=== PATIENT | female | born 1990 | race Caucasian/White ===

== ENCOUNTER 2019-04-29 10:26 | Emergency (ER) | payer OTHER, SELFPAY ==
[2019-04-29] VITALS (8 sets, daily range): BP systolic 116–136; BP diastolic 68–89; PULSE 79–104; RESP 14–16; TEMP 36.7–37.1; O2SAT 98–100
--- NOTE | ~2019-04-29 | CT_ITS ---
EXAMINATION: CT BRAIN W/O DATE: 04/29/2019 11:21 INDICATION: Headache. Near syncope. TECHNIQUE: Computed tomography (CT) of the head was performed without intravenous contrast. The dose- length product was 605.33 mGy-cm. The mA was adjusted according to patient size. Iterative reconstruc tion technique was employed. COMPARISON: No prior studies for comparison. FINDINGS: Normal brain parenchymal volume for age. Normal schneider-white differentiation. No acute intrac ranial hemorrhage, infarction, mass or mass effect. No ventriculomegaly or midline shift. Midline sagittal images demonstrate a normal corpus callosum, c raniovertebral junction and sella turcica. Basilar cisterns are patent. Paranasal sinuses and mastoids are pneumatized. No depressed skull fractures. IMPRESSION: 1. No acute intracranial abnormality. Reviewed, dictated and finalized at location B. 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
--- NOTE | 2019-04-29 10:46 | ECG_ITS ---
Measurements Intervals [place] Rate: 85 P: 19 ME: 142 QRS: -21 QRSD: 94 T: -20 QT: 355 QTc: 424 Interpretive Statements SINUS RHYTHM POSSIBLE LEFT VENTRICULAR HYPERTROPHY NONSPECIFIC ST & T-WAVE ABNORMALITY- ANTEROLAT/INF LEADS BORDERLINE ECG Electronically Signed On 04-29-2019 12:12:55 [employer] by Sedrick Avilez D.O.
--- NOTE | 2019-04-29 11:01 | ED.HA ---
HPI - Headache General Chief Complaint: Syncope Stated Complaint: moya/syncopal episode Time Seen by Provider: 04/29/19 10:57 Source: patient Mode of arrival: ambulatory Limitations: no limitations History of Present Illness HPI Narrative: Pt is a 29 y/o female who presents to the ED with c/o a sudden onset severe, generalized, MOYA that started at work this morning. Pt states that she started feeling funny and her coworkers said he color changed. Pt states that she had a near syncopal episode. 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 She reports a tingling sensation throughout her face. Pt notes that she did not eat breakfast and she normally does not eat breakfast. Pt denies CP, SOB, or dizziness but states that she still feels like she is going to pass out. MD elicited complaint: headache Onset (ago): hour(s) (this morning) Onset description: suddenly Location: generalized Associated symptoms: near syncope and tingling (to face) Related Data Home Medications Medication Instructions Recorded Confirmed levothyroxine [Synthroid] 04/29/19 montelukast mg 04/29/19 norgestimate-ethinyl estradiol tablet 04/29/19 [Estarylla] Allergies Allergy/AdvReac Type Severity Reaction Status Date / Time No Known Allergies Allergy Uncoded 11/28/18 08:32 Review of Systems Review of Systems: All systems reviewed & are unremarkable except as noted in HPI and below Cardiovascular: Cardiovascular: Denies chest pain Respiratory: Respiratory: Denies dyspnea Neurologic: Denies dizziness, Reports syncope (near), Reports headache(s) and Reports tingling (to face) PMFSH Past Medical History Medical History (Updated 04/29/19 @ 12:54 by Anabella Maynard MD) Hypothyroid Surgical History Surgical History (Updated 04/29/19 @ 11:44 by Slime Cisneros) H/O dilation and curettage Social History Social History (Updated 04/29/19 @ 11:45 by Slime Cisneros) Smoking status: Never smoker Alcohol intake: never Substance use: never Comments Pt's PCP is Dr. Quiñonez. Her LNMP was 2 weeks ago. Exam Const: General: cooperative, no acute distress and alert Nutritional Appearance: well nourished Orientation/consciousness: patient oriented x3 Limitations: no limitations HENMT: Mouth: Yes lip normal and Yes moist mucous membranes Eyes: Conjunctivae: conjunctivae normal Pupils: Equal, round and reactive pupils present EOM: EOMs intact bilaterally Resp: Effort & Inspection: normal respiratory effort Auscultation: clear to auscultation bilaterally Cardio: Rate: regular rate Rhythm: regular rhythm GI: GI Palp: Yes Soft to palpation and No Tenderness to palpation present (GI) Auscultation: normal bowel sounds Skin: General skin exam: normal color Neuro: General: patient oriented x3 Cognition (Neuro): normal cognition Speech: normal speech Extrem: General: normal to inspection, full ROM and no clubbing, cyanosis or edema Psych: Mental Status: mental status grossly normal Affect: normal affect Attitude: cooperative Course Course Emergency Course: Headache improved with IV acetaminophen. Patient states she still feels funny . Patient is unable to elaborate further. Vital signs normal. Patient not orthostatic. Patient ambulatory to the bathroom without difficulty. CT scan of the brain unremarkable for any findings of hemorrhage or other abnormality after having presented within an hour of onset of her headache. Patient aside from looking fatigued, is otherwise nontoxic in appearance. Appropriate for further outpatient evaluation. Discussed importance of primary care follow-up and to return to the ED if needed for any worsening symptoms or problems. Consultations Consultation #1: Discussed case with Dr. Quiñonez and reviewed tests. We will follow-up tomorrow and monitor patient's symptoms. Date: 04/29/19 Time: 12:52 Vital Signs Vital sign
[2019-04-29 11:21] LABS: Basophils Absolute Auto 0.1 K/mm3 (0.0-0.1); Basophils Percent Auto 0.5 % (0.2-1.2); Eosinophils Absolute Auto 0.1 K/mm3 (0-0.3); Eosinophils Percent Auto 0.8 % (0-4.4); Hematocrit 40.3 % (37.0-47.0); Hemoglobin 13.1 g/dL (12.0-15.0); Immature Granulocyte Absolute 0.03 K/mm3 (0.00-0.031); Immature Granulocyte Percent A 0.3 % (0-0.5); Lymphocytes Absolute Auto 4.17 K/mm3 (0.9-3.2); Mean Corpuscular HGB Conc 32.5 g/dl (32-36); Mean Corpuscular Hemoglobin 27.5 pg (26-34); Mean Corpuscular Volume 84.5 fl (80-100); Mean Platelet Volume 9.6 fl (7.4-10.4); Monocytes Absolute Auto 0.6 K/mm3 (0.1-0.6); Monocytes Percent Auto 5.9 % (2.6-8.5); Neutrophils Absolute Auto 5.7 K/mm3 (1.3-6.7); Neutrophils Percent Auto 53.5 % (45.5-73.1); Platelet Count Result 344 k/mm3 (150-375); Red Blood Count 4.77 M/mm3 (4.2-5.4); Red Cell Distribution Width 13.7 % (11.5-14.5); White Blood Count 10.7 K/mm3 (4.5-10.0)
[2019-04-29 11:30] LABS: INR 0.9; Prothrombin Time 12.2 Seconds (11.1-14.7)
[2019-04-29 11:31] LABS: Partial Thromboplastin Time 27.5 SECONDS (22.3-36.8)
[2019-04-29 11:33] LABS: Alanine Aminotransferase 21 U/L (4-35); Albumin Level 4.3 g/dL (3.5-5.1); Alkaline Phosphatase 81 U/L (38-126); Aspartate Amino Transferase 18 U/L (14-36); Bilirubin,Total 0.8 mg/dL (0.2-1.3); Blood Urea Nitrogen 11 mg/dL (7-17); Carbon Dioxide 26 mmol/L (22-30); Chloride 104 mmol/L (98-107); Estimated CRCL calculation 99 ml/min; Estimated Glomerular Filt Rate > 60; Glucose 88 mg/dL (65-105); Potassium 3.5 mmol/L (3.4-5.0); Sodium 136 mmol/L (137-145)
[2019-04-29 11:39] LABS: Glucose Point of Care 62 (65-105)
[2019-04-29 12:17] LABS: Add Urine Microscopic? YES; Appearance Urine Clear (Clear); Bacteria Urine Trace /hpf; Bilirubin Urine Negative (Negative); Blood Urine 1+ (Negative); Color Urine Straw (Yellow); Glucose Urine UA Negative (Negative); Ketones Urine Negative (Negative); Leukocyte Esterase Ur 1+ LEU/UL (Negative); Mucus Urine Rare /lpf; Nitrate Urine Negative (Negative); Protein Urine Negative (Negative); RBC Urine 0-2 /hpf (0-2); Specific Grav Ur 1.015 (1.001-1.035); Squamous Epithelial Cell Urine Occasional /hpf (Few); Urobilinogen Urine Negative mg/dL (<2.0); WBC Urine 0-3 /hpf
== END 2019-04-29 13:57 | disposition home or self-care (01) ==
PROVIDERS: Emergency Provider Emergency Medicine; PCP Family Medicine
DX: R51 Headache (principal); E03.9 Hypothyroidism, unspecified
CPT/HCPCS: 36415; 70450; 80053; 81001; 81025; 85025; 85610; 85730; 87804; 93005; 96365; 99284; J0131

== ENCOUNTER 2020-04-29 12:11 | Outpatient (CLI) | payer OTHER, SELFPAY ==
--- NOTE | ~2020-04-29 | XR_ITS ---
EXAMINATION: XR abdomen/kub 1V EXAM DATE: 04/29/2020 13:04 INDICATION: Left lower back pain for 2 months. Nausea. Blood in urine yesterday. History of kidney in fections. TECHNIQUE: Frontal projection of the upper abdomen, frontal projection lower abdomen/pelvis for inter pretation. There is no prior study for comparison. FINDINGS: There is expected amount of colonic stool and gas. No small bowel dilation, nonobstructiv e bowel gas pattern. There are no suspicious calcifications identified. There is no organomegaly suspected. The bones are unremarkable. Lung bases are unremarkable. IMPRESSION: Unremarkable abdomen x-ray exam. Reviewed, dictated and finalized at location A. 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
== END 2020-04-29 12:12 ==
PROVIDERS: PCP Nurse Practitioner Family; Visit Provider Nurse Practitioner Family
DX: R31.9 Hematuria, unspecified (principal); M54.5 Low back pain
CPT/HCPCS: 74018

== ENCOUNTER 2020-06-25 19:37 | Emergency (ER) | payer OTHER, SELFPAY ==
[2020-06-25 19:47] VITALS: BP 137/86; PULSE 107; RESP 18; TEMP 37.4; O2SAT 100
--- NOTE | 2020-06-25 19:49 | ED.GENADULT ---
HPI - General Adult General Chief complaint: Skin/Abscess/Foreign Body Stated complaint: Insect Bite Time Seen by Provider: 06/25/20 19:49 Source: patient Mode of arrival: ambulatory Limitations: no limitations History of Present Illness HPI narrative: 30-year-old female patient presents to the [facility] with complaints of a wound to the back of the right leg. Patient states she knew she got bit by something yesterday morning but was unsure of exactly what she got bit from. Patient states she has been using ice, antibiotic ointment and cleaning the area. Patient states today she noticed that the redness has been getting worse and states that it is very tender and that her whole leg feels weak . Patient denies fevers, body aches or chills. Patient is 10 weeks at this time. Related Data Home Medications Medication Instructions Recorded Confirmed 06/25/20 Allergies Allergy/AdvReac Type Severity Reaction Status Date / Time No Known Allergies Allergy Uncoded 11/28/18 08:32 Review of Systems Review of Systems: Narrative: CONSTITUTIONAL: Denies fever, chills, or sweats. EYES: Denies visual changes, redness, or discharge. ENT: Denies rhinorrhea, congestion, sore throat, or otalgia. CARDIOVASCULAR: Denies chest pain, palpitations, or edema. RESPIRATORY: Denies cough or dyspnea. GASTROINTESTINAL: Denies abdominal pain, nausea, vomiting, or diarrhea. GENITOURINARY: Denies dysuria or hematuria. SKIN: Denies rash or itching. Positive wound to right lower extremity MUSCULOSKELETAL: Denies back pain, joint pain, or myalgia. NEUROLOGIC: Denies headache, numbness, or weakness. PSYCHIATRIC: Denies anxiety or depression. COUNTS INCLUDE 234 BEDS AT THE [facility] Past Medical History Medical History Hypothyroid Migraine without aura and without status migrainosus, not intractable UTI (urinary tract infection) Surgical History Surgical History H/O dilation and curettage Social History Social History Smoking status: Never smoker Alcohol intake: never Substance use: never Comments At the time of my signature I agree with nursing past medical history, surgical, social, and family history. There is no relevant family history pertinent to the presenting complaint. Exam Narrative: Exam Narrative: GENERAL: Well-appearing, well-nourished, and in no acute distress. HEAD: Normocephalic, atraumatic. EYES: PERRLA and EOMI. ENT: Nares clear, no rhinorrhea or epistaxis. Mucous membranes moist. NECK: Supple. No lymphadenopathy CHEST: Clear to auscultation. No respiratory distress. HEART: Regular rate and rhythm. No murmur heard. Normal peripheral pulses. ABDOMEN: Soft, nontender, nondistended, normal active bowel sounds. EXTREMITIES: Normal range of motion. No edema. SKIN: Warm, dry, no rash. Patient has approximately 4 cm reddened area to the right lower extremity behind the right knee. The area is warm to the touch there is a small raised pimple area to the middle with no active drainage. It is tender to the touch on palpation. NEURO: No focal deficits. Alert and oriented x3. Course Vital Signs Vital signs: Vital Signs Temperature 37.4 C 06/25/20 19:47 Pulse Rate 107 H 06/25/20 19:47 Respiratory Rate 18 06/25/20 19:47 Blood Pressure 137/86 06/25/20 19:47 Pulse Oximetry 100 06/25/20 19:47 Temperature 37.4 C 06/25/20 19:47 Pulse Rate 107 H 06/25/20 19:47 Respiratory Rate 18 06/25/20 19:47 Blood Pressure 137/86 06/25/20 19:47 Pulse Oximetry 100 06/25/20 19:47 Vital signs reviewed The patient has been informed that they may have pre-hypertension or Hypertension based on a BP reading in the department. I recommend that the patient call the primary care provider listed on their discharge instructions or a physician of their choice this week
== END 2020-06-25 20:00 | disposition home or self-care (01) ==
PROVIDERS: Emergency Provider Nurse Practitioner Family; PCP Family Medicine
DX: O99.711 Diseases of the skin and subcutaneous tissue complicating pregnancy, first trimester (principal); Z3A.10 10 weeks gestation of pregnancy; L03.115 Cellulitis of right lower limb; O99.281 Endocrine, nutritional and metabolic diseases complicating pregnancy, first trimester; E03.9 Hypothyroidism, unspecified
CPT/HCPCS: 99213; G0463

== ENCOUNTER 2020-09-15 16:09 | Observation (INO) | payer OTHER, SELFPAY ==
[2020-09-15 16:32] VITALS: BP 127/79; PULSE 88
[2020-09-15 17:13] VITALS: BMI 32.3
--- NOTE | 2020-09-15 17:13 | OBADM ---
This patient, Juan Kaur, admitted to the OB room Labor/Delivery/Recovery 103 for observation. Patient/family oriented to hospital policies and general routines including ID bracelet, bed and alarms, visiting hours, pain management, procedures, bathroom and other care routines, personal items, smoking policy, room service/diet, and visiting hours. Patient/Family are encouraged to report perceived risks to care and to ask questions if they do not understand what they are told or what they should do.
[2020-09-15 17:17] LABS: Add Urine Microscopic? YES; Appearance Urine Clear (Clear); Bacteria Urine Trace /hpf; Bilirubin Urine Negative (Negative); Blood Urine Negative (Negative); Color Urine Straw (Yellow); Glucose Urine UA Negative (Negative); Ketones Urine Negative (Negative); Leukocyte Esterase Ur Trace LEU/UL (Negative); Nitrate Urine Negative (Negative); Protein Urine Negative (Negative); RBC Urine 0-2 /hpf (0-2); Specific Grav Ur 1.005 (1.001-1.035); Squamous Epithelial Cell Urine Occasional /hpf (Few); Urobilinogen Urine Negative mg/dL (<2.0); WBC Urine 0-3 /hpf
--- NOTE | 2020-09-15 17:58 | PC.NURSE ---
1750- called, informed pt came in for contractions/cramping, none palpated or picked up on monitor. UA results read, orders received to discharge home
--- NOTE | 2020-10-15 10:25 | PM.OBTRLD ---
OB - Triage/Final Diagnosis Visit Information Comments/Additional reasons for admission: I have assessed the risk for this patient, Juan Kaur, and determined that she would benefit from observation care. Evaluation Laboratory results: Laboratory Tests 09/15/20 17:06 Urine Color Straw Urine Appearance Clear Urine pH 7.0 Ur Specific [place] 1.005 Urine Protein Negative Urine Glucose (UA) Negative Urine Ketones Negative Ur Blood (Man) Negative Urine Nitrate Negative Urine Bilirubin Negative Urine Urobilinogen Negative Leukocyte Esterase Rfl Trace H Urine RBC 0-2 Urine WBC 0-3 Ur Squamous Epith Cells Occasional Urine Bacteria Trace Final Diagnosis (1) False labor: Code(s): O47.9 - False labor, unspecified Status: Acute
== END 2020-09-15 17:59 | disposition home or self-care (01) ==
PROVIDERS: Admitting Provider Obstetrics & Gynecology; PCP Family Medicine; Visit Provider Obstetrics & Gynecology
DX: O47.02 False labor before 37 completed weeks of gestation, second trimester (principal); Z3A.21 21 weeks gestation of pregnancy
CPT/HCPCS: 81001; G0378; G0379

== ENCOUNTER 2020-11-22 13:15 | Observation (INO) | payer OTHER, SELFPAY ==
--- NOTE | 2020-11-22 13:15 | OBADM ---
This patient, Juan Kaur, admitted to the OB room OB Post 117 for observation. Patient/family oriented to hospital policies and general routines including ID bracelet, bed and alarms, visiting hours, pain management, procedures, bathroom and other care routines, personal items, smoking policy, room service/diet, and visiting hours. Patient/Family are encouraged to report perceived risks to care and to ask questions if they do not understand what they are told or what they should do.
--- NOTE | 2020-11-22 13:31 | PC.NURSE ---
Updated Bia Morris CNM of patient arrival to OB unit with complaint of contractions over 2 hours, starting around 1130. Patient reports history of labor with previous 2 pregnancies. Order for FFN, SVE and UA with culture.
[2020-11-22 13:45] VITALS: BP 126/81; PULSE 98
[2020-11-22 13:46] VITALS: BP 115/83; PULSE 100
[2020-11-22 14:00] VITALS: BP 125/79; PULSE 97; TEMP 36.6
[2020-11-22 14:10] LABS: Add Urine Microscopic? YES; Appearance Urine Cloudy (Clear); Bacteria Urine 1+ /hpf; Bilirubin Urine Negative (Negative); Blood Urine Negative (Negative); Color Urine Yellow (Yellow); Glucose Urine UA Negative (Negative); Ketones Urine 2+ mg/dL (Negative); Leukocyte Esterase Ur 3+ LEU/UL (Negative); Mucus Urine Few /lpf; Nitrate Urine Negative (Negative); Protein Urine 1+ mg/dL (Negative); Specific Grav Ur 1.021 (1.001-1.035); Squamous Epithelial Cell Urine Many /hpf (Few); Urobilinogen Urine Negative mg/dL (<2.0); WBC Urine 21-30 /hpf
[2020-11-22 14:15] VITALS: BP 119/77; PULSE 93
--- NOTE | 2020-11-22 14:27 | PC.NURSE ---
Notified Bia Morris CNM of result of UA. Orders received.
[2020-11-22 14:30] VITALS: BP 126/78; PULSE 90
[2020-11-22 14:42] VITALS: BMI 33.0
[2020-11-22] MEDS: LACTATED RINGERS 1,000 ML 999 ML IV CONT (14:42)
[2020-11-22 14:48] LABS: Fetal Fibronectin Negative
[2020-11-22] MEDS: NIFEdipine 30 MG TAB.ER.24 PO (15:16)
[2020-11-22] MEDS: TERBUTALINE SULFATE 1 MG/ML VIAL 0.25 MG SUB-Q (15:53)
--- NOTE | 2020-11-22 17:03 | PC.NURSE ---
Updated Bia Morirs CNM. Patient report not feeling contractions and only feels cramping when needing to use restroom. No contractions noted via toco monitoring. Abdomen palpates soft. Discharge orders received.
--- NOTE | 2020-11-22 17:20 | PC.NURSE ---
Discharge orders reviewed with patient. labor precautions reviewed. Patient states understanding. Patient instructed to picker/puller prescription at pharmacy, patient states understanding. Patient instructed to follow-up as scheduled with Bai Morris CNM on Saturday.
--- NOTE | 2020-11-23 18:20 | P.PNOB_ITS ---
OB - Triage/Final Diagnosis Visit Information Date of evaluation: 11/22/20 Reason for evaluation: threatened labor Comments/Additional reasons for admission: I have assessed the risk for this patient, Juan Kaur, and determined that she would benefit from observation care. Evaluation Laboratory results: Laboratory Tests 11/22/20 11/22/20 13:43 13:43 Urine Color Yellow Urine Appearance Cloudy H Urine pH 6.0 Ur Specific [place] 1.021 Urine Protein 1+ H Urine Glucose (UA) Negative Urine Ketones 2+ H Ur Blood (Man) Negative Urine Nitrate Negative Urine Bilirubin Negative Urine Urobilinogen Negative Leukocyte Esterase Rfl 3+ H Urine RBC 6-10 H Urine WBC 21-30 H Ur Squamous Epith Cells Many H Urine Bacteria 1+ H Urine Mucus Few H Fibronectin Negative
== END 2020-11-22 17:20 | disposition home or self-care (01) ==
PROVIDERS: Advanced Practice Midwife; Admitting Provider Obstetrics & Gynecology; PCP Family Medicine; Visit Provider Obstetrics & Gynecology
DX: O47.03 False labor before 37 completed weeks of gestation, third trimester (principal); Z3A.31 31 weeks gestation of pregnancy
CPT/HCPCS: 81001; 82731; 87086; 96360; 96372; A9270; G0378; G0379; J3105; J7120

== ENCOUNTER 2020-12-06 16:24 | Outpatient (RCR) | payer OTHER, SELFPAY ==
[2020-12-06 17:35] VITALS: BP 115/76; PULSE 84
== END 2021-03-06 23:59 | disposition home or self-care (01) ==
LOC: ANHOBOP 16:24
PROVIDERS: PCP Family Medicine; Visit Provider Obstetrics & Gynecology
DX: O26.893 Other specified pregnancy related conditions, third trimester (principal); Z3A.33 33 weeks gestation of pregnancy
CPT/HCPCS: 59025

== ENCOUNTER 2020-12-14 19:43 | Observation (INO) | payer OTHER, SELFPAY ==
[2020-12-14] VITALS (59 sets, daily range): BP systolic 108–128; BP diastolic 60–82; PULSE 76–118; O2SAT 95–99; BMI 32.5
--- NOTE | 2020-12-14 16:00 | OBADM ---
This patient, Juan Kaur, admitted to the OB room 117 at 1524 for observation for tachycardia, headache, and dizziness. Patient/family oriented to hospital policies and general routines including ID bracelet, bed and alarms, visiting hours, pain management, procedures, bathroom and other care routines, personal items, smoking policy, room service/diet, and visiting hours. Patient/Family are encouraged to report perceived risks to care and to ask questions if they do not understand what they are told or what they should do.
[2020-12-14 16:16] LABS: Basophils Percent Auto 0.4 % (0.2-1.2); Eosinophils Absolute Auto 0.1 K/mm3 (0-0.3); Eosinophils Percent Auto 0.6 % (0-4.4); Hematocrit 31.7 % (37.0-47.0); Hemoglobin 10.3 g/dL (12.0-15.0); Immature Granulocyte Absolute 0.07 K/mm3 (0.00-0.031); Immature Granulocyte Percent A 0.6 % (0-0.5); Lymphocytes Absolute Auto 2.08 K/mm3 (0.9-3.2); Lymphocytes Percent Auto 18.4 % (18.3-44.2); Mean Corpuscular HGB Conc 32.5 g/dl (32-36); Mean Corpuscular Hemoglobin 26.8 pg (26-34); Mean Corpuscular Volume 82.3 fl (80-100); Mean Platelet Volume 10.5 fl (7.4-10.4); Monocytes Absolute Auto 0.8 K/mm3 (0.1-0.6); Monocytes Percent Auto 7.3 % (2.6-8.5); Neutrophils Absolute Auto 8.2 K/mm3 (1.3-6.7); Neutrophils Percent Auto 72.7 % (45.5-73.1); Platelet Count Result 234 k/mm3 (150-375); Red Blood Count 3.85 M/mm3 (4.2-5.4); Red Cell Distribution Width 14.2 % (11.5-14.5); White Blood Count 11.3 K/mm3 (4.5-10.0)
[2020-12-14 16:25] LABS: Add Urine Microscopic? YES; Appearance Urine Cloudy (Clear); Bacteria Urine Trace /hpf; Bilirubin Urine 1+ (Negative); Blood Urine Negative (Negative); Color Urine Amber (Yellow); Glucose Urine UA Negative (Negative); Ketones Urine Trace mg/dL (Negative); Leukocyte Esterase Ur 3+ LEU/UL (Negative); Mucus Urine Heavy /lpf; Nitrate Urine Negative (Negative); Protein Urine 2+ mg/dL (Negative); Squamous Epithelial Cell Urine Few /hpf (Few); WBC Urine 51-75 /hpf
[2020-12-14 16:27] LABS: Specific Grav Ur 1.034 (1.001-1.035)
[2020-12-14 16:31] LABS: Alanine Aminotransferase 10 U/L (4-35); Albumin Level 3.5 g/dL (3.5-5.1); Alkaline Phosphatase 145 U/L (38-126); Anion Gap 7 mmol/L (8-16); Aspartate Amino Transferase 15 U/L (14-36); Bilirubin,Total 0.6 mg/dL (0.2-1.3); Blood Urea Nitrogen 4 mg/dL (7-17); Calcium 8.9 mg/dL (8.4-10.2); Carbon Dioxide 21 mmol/L (22-30); Chloride 106 mmol/L (98-107); Estimated Glomerular Filt Rate > 60; Glucose 120 mg/dL (65-110); Potassium 3.7 mmol/L (3.4-5.0); Sodium 134 mmol/L (137-145)
[2020-12-14] MEDS: NITROFURANTOIN MONOHYD MACROCR 100 MG CAP PO (18:25)
--- NOTE | 2020-12-14 19:14 | PM.IMHP ---
H&P: HPI History of Present Illness Date/Time: 12/14/20 19:14 pt admitted for observation for complaints of nausea, dizziness and tachycardia while at work, per pt HR up to 200 while sitting, became very pale and then headache started and dizziness. Pt also c/o contractions that were worsening during the day but are less frequent and crampy now. also c/o fatigue Chief Complaint: nausea, dizziness, tachycardia Review of Systems Review of Systems: All systems reviewed & are unremarkable except as noted in HPI and below PMFSH Past Medical History Medical History (Updated 10/15/20 @ 10:25 by Ashli Montez MD) Hypothyroid Migraine without aura and without status migrainosus, not intractable UTI (urinary tract infection) Venomous spider bite (06/23/20) right posterior thigh with cellulitis Surgical History Surgical History H/O dilation and curettage Social History Social History Smoking status: Never smoker Alcohol intake: never Substance use: never Meds Home Medications and Allergies Home Medications Medication Instructions Recorded Confirmed Type levothyroxine 137 mcg capsule 137 mcg PO DAILY 11/07/20 12/14/20 History PNV cmb#95-ferrous fumarate-FA 1 tablet PO HS 12/14/20 12/14/20 History [] ursodiol 300 mg PO TIDWMEAL 12/14/20 12/14/20 History Allergies Allergy/AdvReac Type Severity Reaction Status Date / Time No Known Allergies Allergy Verified 12/14/20 15:50 Vital Signs Vital Signs - 24 hr 12/14/20 15:43 12/14/20 15:48 12/14/20 15:49 Pulse Rate Blood Pressure Pulse Oximetry 99 98 98 12/14/20 15:51 12/14/20 15:53 12/14/20 15:58 Pulse Rate 97 Blood Pressure 128/79 Pulse Oximetry 98 97 12/14/20 16:03 12/14/20 16:05 12/14/20 16:08 Pulse Rate 100 Blood Pressure 126/75 Pulse Oximetry 97 99 12/14/20 16:13 12/14/20 16:15 12/14/20 16:18 Pulse Rate 89 Blood Pressure 120/79 Pulse Oximetry 98 97 12/14/20 16:23 12/14/20 16:28 12/14/20 16:30 Pulse Rate 85 Blood Pressure 120/80 Pulse Oximetry 97 97 12/14/20 16:33 12/14/20 16:38 12/14/20 16:43 Pulse Rate Blood Pressure Pulse Oximetry 97 98 98 12/14/20 16:45 12/14/20 16:48 12/14/20 16:53 Pulse Rate 94 Blood Pressure 119/72 Pulse Oximetry 97 98 12/14/20 16:58 12/14/20 17:00 12/14/20 17:03 Pulse Rate 83 Blood Pressure 126/80 Pulse Oximetry 98 98 12/14/20 17:08 12/14/20 17:13 12/14/20 17:18 Pulse Rate Blood Pressure Pulse Oximetry 97 97 99 12/14/20 17:23 12/14/20 17:28 12/14/20 17:30 Pulse Rate 90 Blood Pressure 118/65 Pulse Oximetry 98 98 12/14/20 17:33 12/14/20 17:38 12/14/20 17:43 Pulse Rate Blood Pressure Pulse Oximetry 99 98 97 12/14/20 17:45 12/14/20 17:48 12/14/20 17:53 Pulse Rate 91 Blood Pressure 123/78 Pulse Oximetry 98 97 12/14/20 17:58 12/14/20 18:00 12/14/20 18:03 Pulse Rate 80 Blood Pressure 123/70 Pulse Oximetry 97 97 12/14/20 18:08 12/14/20 18:13 12/14/20 18:15 Pulse Rate 82 Blood Pressure 125/74 Pulse Oximetry 97 97 12/14/20 18:17 12/14/20 18:22 12/14/20 18:27 Pulse Rate Blood Pressure Pulse Oximetry 97 97 97 12/14/20 18:30 12/14/20 18:32 12/14/20 18:37 Pulse Rate 91 Blood Pressure 127/82 Pulse Oximetry 97 98 12/14/20 18:42 12/14/20 18:46 12/14/20 18:47 Pulse Rate 79 Blood Pressure 108/60 Pulse Oximetry 98 98 12/14/20 18:51 12/14/20 18:56 12/14/20 19:00 Pulse Rate 84 Blood Pressure 121/73 Pulse Oximetry 98 97 12/14/20 19:01 12/14/20 19:06 12/14/20 19:11 Pulse Rate Blood Pressure Pulse Oximetry 96 95 96 Exam Const: General: cooperative Limitations: no limitations Psych: Attitude: cooperative Thought process: Normal thought process present Thought content: Yes Normal thought con
[2020-12-15 17:41] LABS: SARS-CoV-2 RNA PCR Negative
== END 2020-12-14 20:00 | disposition home or self-care (01) ==
LOC: ANHOBOP 19:43 → ANHOBPP 19:43
PROVIDERS: Advanced Practice Midwife; Admitting Provider Obstetrics & Gynecology; PCP Family Medicine; Visit Provider Obstetrics & Gynecology
DX: O26.893 Other specified pregnancy related conditions, third trimester (principal); R42 Dizziness and giddiness; R51.9 Headache, unspecified; Z3A.34 34 weeks gestation of pregnancy
CPT/HCPCS: 36415; 80053; 81001; 85025; 87086; 87088; A9270; C9803; G0378; G0379; U0003; U0005

== ENCOUNTER 2021-01-11 06:07 | Inpatient (IN) | payer OTHER, SELFPAY ==
[2021-01-11] VITALS (90 sets, daily range): BP systolic 92–144; BP diastolic 47–109; PULSE 61–155; RESP 18–20; TEMP 36.3–37.1; O2SAT 97–100; BMI 32.6
--- OUTSIDE RECORDS SUMMARY | 2021-01-11 06:11 | XMS_ITS ---
:1990 Author Care Team Providers Name Role Phone ROZINA GAXIOLA MD Primary Care Provider [phone] Allergies Code Code System Name Reaction Severity Status Onset NKDA ? Medications Name Status Start Date Stop Date ? ? amoxicillin 875 mg-potassium clavulanate 125 mg tablet Completed ? 07/08/2020 TAKE 1 TABLET BY MOUTH EVERY 12 HOURS FOR 5 DAYS aspirin 81 mg chewable tablet Active ? No t available xxqbmlicuh-kdpdvkjnpfiig-vvgbuiai 50 mg-325 mg-40 mg tablet Comp leted ? 06/17/2020 TAKE 1 TABLET BY MOUTH EVERY 4 TO 6 HOURS NEEDED FOR PAIN ciprofloxacin 500 mg tablet Completed ? 05/27 TAKE 1 TABLET BY MOUTH EVERY 12 HOURS Compazine 10 mg tablet Completed 2016 7 take 1 tablet by oral route 3 times every day doxycycline hyclate 100 mg capsule Completed 01/29/2018 10/10/2018 take 1 capsule by oral route 2 times every day levothyroxine 125 mcg tablet Completed ? TAKE 1 TABLET BY MOUTH DAILY levothyroxine 137 mcg tablet Active ? Not available Lexapro 5 mg tablet Completed 04/08/2015 01/26/2016 take 1 tablet by oral route every day nifedipine ER 30 mg Completed ? 12/23/2020 tablet,extended release 24 hr nitrofurantoin Completed ? 12/23/2020 monohydrate/macrocrystals 100 mg capsule prednisone 20 mg tablet Completed ? 10/29/19 21 TAKE 1 TABLET BY MOUTH DAILY Active ? Not available Seasonique 0.15 mg-30 mcg (84)/10 mcg(7) tablets,3 month dos e pack Comp
--- OUTSIDE RECORDS SUMMARY | 2021-01-11 06:11 | XMS_ITS | Encounter Summary ---
:1990 Author Care Team Providers Name Role Phone Paul Quiñonez MD Primary Care Provider [phone] Reason for Visit None recorded. Assessment and Plan 1. Cholestasis of ? non-stress test Discussion Note: None recorded.Patient educational handouts: No information available. Plan of Care Reminders Provider Appointments None ? ? recorded. Lab None ? ? recorded. Referral None ? ? recorded. Procedures None ? ? recorded. Surgeries None ? ? recorded. Imaging 01/10/2021 [place] Non-stress Test Medications Name Start Date ? ? aspirin 81 mg chewable tablet ? levothyroxine 137 mcg tablet ? Take 1 tablet every day by oral route. ? ursodiol 300 mg capsule ? TAKE 1 CAPSULE BY MOUTH TWICE DAILY Medications Administered None recorded. Vitals None recorded. Results Lab Results None recorded. Allergies Code Code System Name Reaction Severity Onset NKDA ? ? ? Problems Name Status Onset Date Source ? Active 07/08/2020 ? Proced
--- OUTSIDE RECORDS SUMMARY | 2021-01-11 06:12 | XMS_ITS | Encounter Summary ---
:1990 Author Care Team Providers Name Role Phone Paul Quiñonez MD Primary Care Provider [phone] Reason for Visit None recorded. Assessment and Plan 1. Cholestasis of ? non-stress test Discussion Note: None recorded.Patient educational handouts: No information available. Plan of Care Reminders Provider Appointments None ? ? recorded. Lab None ? ? recorded. Referral None ? ? recorded. Procedures None ? ? recorded. Surgeries None ? ? recorded. Imaging 01/06/2021 [place] Non-stress Test Medications Name Start Date ? [...]
--- OUTSIDE RECORDS SUMMARY | 2021-01-11 06:12 | XMS_ITS | Encounter Summary ---
:1990 Author Care Team Providers Name Role Phone Paul Quiñonez MD Primary Care Provider [phone] Reason for Visit OB visit OB [id number] EDC 03/23/2020 LMP 04/16/2020 Assessment and Plan Assessment Note Patient is _36__weeks . Dis cussed plan. 1. Routine care Discussion Note: None recorded.Patient educational handouts: No information available. Plan of Care Reminders Provider Appointments None ? ? recorded. Lab None ? ? recorded. Referral None ? ? recorded. Procedures None ? ? recorded. Surgeries None ? ? recorded. Imaging None ? ? recorded. Medications Name Start Date ? ? aspirin 81 mg chewable tablet ? levothyroxine 137 mcg tablet ? Take 1 tablet every day by oral route. ? ursodiol 300 mg capsule ? TAKE 1 CAPSULE BY MOUTH TWICE DAILY Medications Administered None recorded. Vitals Height Weight BMI Blood Pressure 5 ft 6 in 203 lbs 32.8 kg/m2 133/85 mm[Hg] Results Lab Results None recorded. Allergies Code Code System Name Reaction Severity Onset NKDA ? ? ?
--- OUTSIDE RECORDS SUMMARY | 2021-01-11 06:12 | XMS_ITS | Encounter Summary ---
:1990 Author Care Team Providers Name Role Phone Paul Quiñonez MD Primary Care Provider [phone] Reason for Visit None recorded. Assessment and Plan 1. Cholestasis of ? non-stress test Discussion Note: None recorded.Patient educational handouts: No information available. Plan of Care Reminders Provider Appointments None ? ? recorded. Lab None ? ? recorded. Referral None ? ? recorded. Procedures None ? ? recorded. Surgeries None ? ? recorded. Imaging 01/03/2021 [place] Non-stress Test Medications Name Start Date ? ? aspirin 81 mg chewable tablet ? levothyroxine 137 mcg tablet ? Take 1 tablet every day by oral route. ? ursodiol 300 mg capsule ? TAKE 1 CAPSULE BY MOUTH TWICE DAILY Medications Administered None recorded. Vitals Blood Pressure 123/82 mm[Hg] Results Lab Results None recorded. Allergies Code Code System Name Reaction Severity Onset NKDA ? ? ? Problems Name Status Onset Date Source ?
--- OUTSIDE RECORDS SUMMARY | 2021-01-11 06:12 | XMS_ITS | Encounter Summary ---
:1990 Author Care Team Providers Name Role Phone Paul Quiñonez MD Primary Care Provider [phone] Reason for Visit None recorded. Assessment and Plan 1. Cholestasis of ? non-stress test Discussion Note: None recorded.Patient educational handouts: No information available. Plan of Care Reminders Provider Appointments None ? ? recorded. Lab None ? ? recorded. Referral None ? ? recorded. Procedures None ? ? recorded. Surgeries None ? ? recorded. Imaging 12/20/2020 [place] Non-stress Test Medications Name Start Date ? ? aspirin 81 mg chewable tablet ? levothyroxine 137 mcg tablet ? Take 1 tablet every day by oral route. ? ursodiol 300 mg capsule ? TAKE 1 CAPSULE BY MOUTH TWICE DAILY Medications Administered None recorded. Vitals Blood Pressure 129/77 mm[Hg] Results Lab Results None recorded. Allergies Code Code System Name Reaction Severity Onset NKDA ? ? ? Problems Name Status Onset Date Source ?
--- OUTSIDE RECORDS SUMMARY | 2021-01-11 06:12 | XMS_ITS | Encounter Summary ---
:1990 Author Care Team Providers Name Role Phone Paul Quiñonez MD Primary Care Provider [phone] Reason for Visit None recorded. Assessment and Plan 1. Cholestasis of ? non-stress test Discussion Note: None recorded.Patient educational handouts: No information available. Plan of Care Reminders Provider Appointments None ? ? recorded. Lab None ? ? recorded. Referral None ? ? recorded. Procedures None ? ? recorded. Surgeries None ? ? recorded. Imaging 12/16/2020 [place] Non-stress Test Medications Name Start Date ? [...]
--- OUTSIDE RECORDS SUMMARY | 2021-01-11 06:12 | XMS_ITS | Encounter Summary ---
:1990 Author Care Team Providers Name Role Phone Paul Quiñonez MD Primary Care Provider [phone] Reason for Visit OB visit 37w6d Assessment and Plan Assessment Note Patient is ___weeks . Discu ssed plan. Discussion Note: None recorded.Patient educational handouts: No [...] Onset Date Source ? Active 07/08/2020 ? Procedures
--- OUTSIDE RECORDS SUMMARY | 2021-01-11 06:12 | XMS_ITS | Encounter Summary ---
:1990 Author Care Team Providers Name Role Phone Paul Quiñonez MD Primary Care Provider [phone] Reason for Visit OB visit OB [id number] EDC 01/21/2021 LMP 04/16/2020 Assessment and Plan Assessment Note Patient is 33 ___weeks . Di scussed plan. 1. Routine care Discussion Note: None [...] BMI Blood Pressure 5 ft 6 in 202 lbs 32.6 kg/m2 126/83 mm[Hg] Results Lab Results None recorded. Allergies Code Code System Name Reaction Severity Onset NKDA ? ? ?
--- OUTSIDE RECORDS SUMMARY | 2021-01-11 06:12 | XMS_ITS | Encounter Summary ---
:1990 Author Care Team Providers Name Role Phone Paul Quiñonez MD Primary Care Provider [phone] Reason for Visit None recorded. Assessment and Plan 1. Cholestasis of ? non-stress test Discussion Note: None recorded.Patient educational handouts: No information available. Plan of Care Reminders Provider Appointments None ? ? recorded. Lab None ? ? recorded. Referral None ? ? recorded. Procedures None ? ? recorded. Surgeries None ? ? recorded. Imaging 12/30/2020 [place] Non-stress Test Medications Name Start Date ? [...]
--- OUTSIDE RECORDS SUMMARY | 2021-01-11 06:12 | XMS_ITS | Encounter Summary ---
:1990 Author Care Team Providers Name Role Phone Paul Quiñonez MD Primary Care Provider [phone] Reason for Visit None recorded. Assessment and Plan 1. Cholestasis of ? non-stress test Discussion Note: None recorded.Patient educational handouts: No information available. Plan of Care Reminders Provider Appointments None ? ? recorded. Lab None ? ? recorded. Referral None ? ? recorded. Procedures None ? ? recorded. Surgeries None ? ? recorded. Imaging 12/23/2020 [place] Non-stress Test Medications Name Start Date ? [...]
--- OUTSIDE RECORDS SUMMARY | 2021-01-11 06:12 | XMS_ITS | Encounter Summary ---
:1990 Author Care Team Providers Name Role Phone Paul Quiñonez MD Primary Care Provider [phone] Reason for Visit OB visit 38w3d Assessment and Plan 1. Routine care Discussion Note: None recorded.Patient [...] Medications Administered None recorded. Vitals Height Weight Blood Pressure 5 ft 6 in 201 lbs 126/81 mm[Hg] Results Lab Results None recorded. Allergies Code Code System Name Reaction Severity Onset NKDA ? ? ? Problems Name Status Onset Date Source ? Activ
--- OUTSIDE RECORDS SUMMARY | 2021-01-11 06:12 | XMS_ITS | Encounter Summary ---
:1990 Author Care Team Providers Name Role Phone Paul Quiñonez MD Primary Care Provider [phone] Reason for Visit OB visit 34w6d Assessment and Plan Assessment Note Patient is ___weeks . Discu ssed plan. 1. Routine care Discussion Note: None [...] BMI Blood Pressure 5 ft 6 in 200 lbs 32.3 kg/m2 132/82 mm[Hg] Results Lab Results None recorded. Allergies Code Code System Name Reaction Severity Onset NKDA ? ? ? Problems
--- OUTSIDE RECORDS SUMMARY | 2021-01-11 06:12 | XMS_ITS | Encounter Summary ---
:1990 Author Care Team Providers Name Role Phone Paul Quiñonez MD Primary Care Provider [phone] Reason for Visit None recorded. Assessment and Plan 1. Cholestasis of ? non-stress test Discussion Note: None recorded.Patient educational handouts: No information available. Plan of Care Reminders Provider Appointments None ? ? recorded. Lab None ? ? recorded. Referral None ? ? recorded. Procedures None ? ? recorded. Surgeries None ? ? recorded. Imaging 12/09/2020 [place] Non-stress Test Medications Name Start Date ? [...]
--- OUTSIDE RECORDS SUMMARY | 2021-01-11 06:12 | XMS_ITS | Encounter Summary ---
:1990 Author Care Team Providers Name Role Phone Paul Quiñonez MD Primary Care Provider [phone] Reason for Visit None recorded. Assessment and Plan 1. Cholestasis of ? non-stress test Discussion Note: None recorded.Patient educational handouts: No information available. Plan of Care Reminders Provider Appointments None ? ? recorded. Lab None ? ? recorded. Referral None ? ? recorded. Procedures None ? ? recorded. Surgeries None ? ? recorded. Imaging 12/06/2020 [place] Non-stress Test Medications Name Start Date ? ? aspirin 81 mg chewable tablet ? levothyroxine 137 mcg tablet ? Take 1 tablet every day by oral route. ? ursodiol 300 mg capsule ? TAKE 1 CAPSULE BY MOUTH TWICE DAILY Medications Administered None recorded. Vitals Blood Pressure 131/81 mm[Hg] Results Lab Results None recorded. Allergies Code Code System Name Reaction Severity Onset NKDA ? ? ? Problems Name Status Onset Date Source ?
--- OUTSIDE RECORDS SUMMARY | 2021-01-11 06:12 | XMS_ITS | Encounter Summary ---
:1990 Author Care Team Providers Name Role Phone Paul Quiñonez MD Primary Care Provider [phone] Reason for Visit OB visit OB [id number] EDC 01/21/2021 LMP 04/16/2020 Assessment and Plan Assessment Note Patient is _35__weeks . Dis cussed plan. 1. Routine care [...] ft 6 in 203 lbs 32.8 kg/m2 127/82 mm[Hg] Results Lab Results None recorded. Allergies Code Code System Name Reaction Severity Onset NKDA ? ? ?
--- OUTSIDE RECORDS SUMMARY | 2021-01-11 06:12 | XMS_ITS | Encounter Summary ---
:1990 Author Care Team Providers Name Role Phone Paul Quiñonez MD Primary Care Provider [phone] Reason for Visit None recorded. Assessment and Plan 1. Cholestasis of ? non-stress test Discussion Note: None recorded.Patient educational handouts: No information available. Plan of Care Reminders Provider Appointments None ? ? recorded. Lab None ? ? recorded. Referral None ? ? recorded. Procedures None ? ? recorded. Surgeries None ? ? recorded. Imaging 12/27/2020 [place] Non-stress Test Medications Name Start Date ? ? aspirin 81 mg chewable tablet ? levothyroxine 137 mcg tablet ? Take 1 tablet every day by oral route. ? ursodiol 300 mg capsule ? TAKE 1 CAPSULE BY MOUTH TWICE DAILY Medications Administered None recorded. Vitals Weight Blood Pressure 203 lbs 138/85 mm[Hg] Results Lab Results None recorded. Allergies Code Code System Name Reaction Severity Onset NKDA ? ? ? Problems Name Status Onset Date Source ?
--- OUTSIDE RECORDS SUMMARY | 2021-01-11 06:12 | XMS_ITS | Encounter Summary ---
:1990 Author Care Team Providers Name Role Phone Paul Quiñonez MD Primary Care Provider [phone] Reason for Visit None recorded. Assessment and Plan 1. Cholestasis of ? US, obstetric, follow-up Discussion Note: None recorded.Patient educational handouts: No information available. Plan of Care Reminders Provider Appointments None ? ? recorded. Lab None ? ? recorded. Referral None ? ? recorded. Procedures None ? ? recorded. Surgeries None ? ? recorded. Imaging US, 01/06/2021 [place] [facility], Follow-up Medications Name Start Date ? ? aspirin [...]
--- OUTSIDE RECORDS SUMMARY | 2021-01-11 06:12 | XMS_ITS | Encounter Summary ---
:1990 Author Care Team Providers Name Role Phone Paul Quiñonez MD Primary Care Provider [phone] Reason for Visit None recorded. Assessment and Plan 1. Cholestasis of ? non-stress test Discussion Note: None recorded.Patient educational handouts: No information available. Plan of Care Reminders Provider Appointments None ? ? recorded. Lab None ? ? recorded. Referral None ? ? recorded. Procedures None ? ? recorded. Surgeries None ? ? recorded. Imaging 12/13/2020 [place] Non-stress Test Medications Name Start Date ? ? aspirin 81 mg chewable tablet ? levothyroxine 137 mcg tablet ? Take 1 tablet every day by oral route. ? ursodiol 300 mg capsule ? TAKE 1 CAPSULE BY MOUTH TWICE DAILY Medications Administered None recorded. Vitals Blood Pressure 115/82 mm[Hg] Results Lab Results None recorded. Allergies Code Code System Name Reaction Severity Onset NKDA ? ? ? Problems Name Status Onset Date Source ?
--- OUTSIDE RECORDS SUMMARY | 2021-01-11 06:13 | XMS_ITS | Encounter Summary ---
:1990 Author Care Team Providers Name Role Phone Paul Quiñonez MD Primary Care Provider [phone] Reason for Visit OB visit OB [id number] EDC 01/21/2021 LMP 04/16/2020 Assessment and Plan Assessment Note Patient is _32__weeks . Dis cussed plan. 1. Routine care [...] ft 6 in 203 lbs 32.8 kg/m2 132/84 mm[Hg] Results Lab Results None recorded. Allergies Code Code System Name Reaction Severity Onset NKDA ? ? ?
--- OUTSIDE RECORDS SUMMARY | 2021-01-11 06:13 | XMS_ITS | Encounter Summary ---
:1990 Author Care Team Providers Name Role Phone Paul Quiñonez MD Primary Care Provider [phone] Reason for Visit None recorded. Assessment and Plan 1. Reduced movement ? non-stress test Discussion Note: None recorded.Patient educational handouts: No information available. Plan of Care Reminders Provider Appointments None ? ? recorded. Lab None ? ? recorded. Referral None ? ? recorded. Procedures None ? ? recorded. Surgeries None ? ? recorded. Imaging 11/10/2020 [place] Non-stress Test Medications Name Start Date ? [...] Onset Date Source ? Active 07/08/2020 ? Procedu
--- OUTSIDE RECORDS SUMMARY | 2021-01-11 06:13 | XMS_ITS | Encounter Summary ---
:1990 Author Care Team Providers Name Role Phone Paul Quiñonez MD Primary Care Provider [phone] Reason for Visit None recorded. Assessment and Plan 1. Cholestasis of ? US, obstetric, follow-up Discussion Note: None recorded.Patient educational handouts: No information available. Plan of Care Reminders Provider Appointments None ? ? recorded. Lab None ? ? recorded. Referral None ? ? recorded. Procedures None ? ? recorded. Surgeries None ? ? recorded. Imaging US, 10/28/2020 [place] [facility], Follow-up Medications Name Start Date ? [...]
--- OUTSIDE RECORDS SUMMARY | 2021-01-11 06:13 | XMS_ITS | Encounter Summary ---
:1990 Author Care Team Providers Name Role Phone Paul Quiñonez MD Primary Care Provider [phone] Reason for Visit None recorded. Assessment and Plan 1. Cholestasis of ? US, obstetric, follow-up Discussion Note: None recorded.Patient educational handouts: No information available. Plan of Care Reminders Provider Appointments None ? ? recorded. Lab None ? ? recorded. Referral None ? ? recorded. Procedures None ? ? recorded. Surgeries None ? ? recorded. Imaging US, 11/29/2020 [facility], Follow-up Medications Name Start Date ? [...]
--- OUTSIDE RECORDS SUMMARY | 2021-01-11 06:13 | XMS_ITS | Encounter Summary ---
:1990 Author Care Team Providers Name Role Phone Paul Quiñonez MD Primary Care Provider [phone] Reason for Visit OB visit Assessment and Plan Assessment Note Patient is [...] ? ? Problems Name Status Onset Date Sour
--- OUTSIDE RECORDS SUMMARY | 2021-01-11 06:13 | XMS_ITS | Encounter Summary ---
:1990 Author Care Team Providers Name Role Phone Paul Quiñonez MD Primary Care Provider [phone] Reason for Visit OB visit OB [id number] EDC 01/21/2021 LMP 03/29/2020 Assessment and Plan Assessment Note Patient is _27__weeks . Dis cussed plan. 1. Routine care [...] ft 6 in 202 lbs 32.6 kg/m2 123/80 mm[Hg] Results Lab Results None recorded. Allergies Code Code System Name Reaction Severity Onset NKDA ? ? ?
--- OUTSIDE RECORDS SUMMARY | 2021-01-11 06:13 | XMS_ITS | Encounter Summary ---
:1990 Author Care Team Providers Name Role Phone Paul Quiñonez MD Primary Care Provider [phone] Reason for Visit None recorded. Assessment and Plan 1. Cholestasis of ? non-stress test Discussion Note: None recorded.Patient educational handouts: No information available. Plan of Care Reminders Provider Appointments None ? ? recorded. Lab None ? ? recorded. Referral None ? ? recorded. Procedures None ? ? recorded. Surgeries None ? ? recorded. Imaging 11/29/2020 [place] Non-stress Test Medications Name Start Date ? [...]
--- NOTE | 2021-01-11 06:46 | WPDOBADMIT ---
Obstetrics - Admit Note Admission Note: record reviewed. No pertinent additions to the history and/or any subsequent changes in the physical findings that are not consistent with the expected course of the were found. MIL , cholestasis, Plan AROM Additions to the history and/or subsequent changes in the physical findings follow. None.
[2021-01-11 06:54] LABS: Basophils Percent Auto 0.3 % (0.2-1.2); Eosinophils Absolute Auto 0.1 K/mm3 (0-0.3); Eosinophils Percent Auto 0.6 % (0-4.4); Hematocrit 33.3 % (37.0-47.0); Hemoglobin 10.6 g/dL (12.0-15.0); Immature Granulocyte Absolute 0.08 K/mm3 (0.00-0.031); Immature Granulocyte Percent A 0.8 % (0-0.5); Lymphocytes Absolute Auto 2.13 K/mm3 (0.9-3.2); Lymphocytes Percent Auto 22.5 % (18.3-44.2); Mean Corpuscular HGB Conc 31.8 g/dl (32-36); Mean Corpuscular Hemoglobin 25.7 pg (26-34); Mean Corpuscular Volume 80.6 fl (80-100); Mean Platelet Volume 11.6 fl (7.4-10.4); Monocytes Absolute Auto 0.7 K/mm3 (0.1-0.6); Monocytes Percent Auto 7.2 % (2.6-8.5); Neutrophils Absolute Auto 6.5 K/mm3 (1.3-6.7); Neutrophils Percent Auto 68.6 % (45.5-73.1); Platelet Count Result 249 k/mm3 (150-375); Red Blood Count 4.13 M/mm3 (4.2-5.4); Red Cell Distribution Width 14.7 % (11.5-14.5); White Blood Count 9.5 K/mm3 (4.5-10.0)
--- NOTE | 2021-01-11 06:55 | PM.OBPNLAB ---
Pain Control Date/time seen: 01/11/21 06:55 AROM minimal amount of clear odorless fluid, SVE /-2
[2021-01-11] MEDS: AMPICILLIN 2 GM/NS 100 ML 2 GM/100 ML BAG IVPB (07:08)
[2021-01-11] MEDS: LACTATED RINGERS 1,000 ML 125 ML IV CONT (07:09)
--- NOTE | 2021-01-11 07:50 | LDADM ---
This patient, Juan Kaur, was admitted to Labor/Delivery/Recovery 107 on 01/11/21 at 06:07. Plans for labor, pain management and were discussed with patient. Patient/family oriented to hospital policies and general routines including ID bracelet, bed and alarms, visiting hours, pain management, procedures, bathroom and other care routines, personal items, smoking policy, room service/diet and guest tray routines, security routines, and visiting hours. Patient/Family are encouraged to report perceived risks to care and to ask questions if they do not understand what they are told or what they should do. See OBIX for further documentation.
--- NOTE | 2021-01-11 08:33 | WPDANESEPP ---
Anes - Eval Pre Procedure Date/Time: 01/11/21 08:33 Pre Op Diagnosis: iol Patient Data Age: 30 Gender: F Height: 1.68 m Weight: 91.81 kg Last Vital Signs Temp 98.3 F 01/11/21 07:09 Pulse 87 01/11/21 08:31 BP 121/76 01/11/21 08:31 Allergies Allergy/AdvReac Type Severity Reaction Status Date / Time No Known Allergies Allergy Verified 12/14/20 15:50 Home Medications Medication Instructions Recorded Confirmed Type levothyroxine 137 mcg capsule 137 mcg PO DAILY 11/07/20 12/24/20 History PNV cmb#95-ferrous fumarate-FA 1 tablet PO HS 12/14/20 12/24/20 History [] ursodiol 300 mg PO TIDWMEAL 12/14/20 12/24/20 History Laboratory Tests 01/11/21 01/11/21 01/11/21 06:30 06:30 06:30 WBC 9.5 K/mm3 K/mm3 (4.5-10.0) RBC 4.13 M/mm3 L M/mm3 (4.2-5.4) Hgb 10.6 g/dL L g/dL (12.0-15.0) Hct 33.3 % L % (37.0-47.0) MCV 80.6 fl fl (80-100) MCH 25.7 pg L pg (26-34) MCHC 31.8 g/dl L g/dl (32-36) RDW 14.7 % H % (11.5-14.5) Plt Count 249 k/mm3 k/mm3 (150-375) MPV 11.6 fl H fl (7.4-10.4) Immature Gran % (Auto) 0.8 % H % (0-0.5) Neut % (Auto) 68.6 % % (45.5-73.1) Lymph % (Auto) 22.5 % % (18.3-44.2) Cobb % (Auto) 7.2 % % (2.6-8.5) Eos % (Auto) 0.6 % % (0-4.4) Baso % (Auto) 0.3 % % (0.2-1.2) Lymph # (Auto) 2.13 K/mm3 K/mm3 (0.9-3.2) Cobb # (Auto) 0.7 K/mm3 H K/mm3 (0.1-0.6) Eos # (Auto) 0.1 K/mm3 K/mm3 (0-0.3) Baso # (Auto) 0.0 K/mm3 K/mm3 (0.0-0.1) Abs Immat Gran (auto) 0.08 K/mm3 H K/mm3 (0.00-0.031) Absolute Neuts (auto) 6.5 K/mm3 K/mm3 (1.3-6.7) Absolute Nucleated RBC 0.0 K/mm3 K/mm3 (0.0-0.012) Nucleated RBC % 0.0 % % (0.0-0.2) RPR Pending Blood Type O Positive Antibody Screen Negative Patient hx anesthesia problems: none Family hx anesthesia problems: none Results Review: All pre-operative results and documents have been reviewed as part of the pre-operative evaluation. [facility] Past Medical History Medical History Anxiety and depression Hypothyroid Migraine without aura and without status migrainosus, not intractable Overweight (BMI 25.0-29.9) and not yet delivered UTI (urinary tract infection) Venomous spider bite (06/23/20) right posterior thigh with cellulitis Surgical History Surgical History H/O dilation and curettage Family History Family History Sibling Nader syndrome Father Blood disorder Mother Asthma Hypothyroidism Social History Social History Smoking status: Never smoker Alcohol intake: never Substance use: never Spiritual care concerns: No Exam Day of Procedure 01/11/21 08:33 Patient weight: overweight Airway: Mallampati scale class II Neurological: alert and oriented
[2021-01-11] MEDS: AMPICILLIN 1 GM/NS 50 ML 1 GM/50 ML BAG IVPB ×3 (11:17→18:52)
[2021-01-11] MEDS: OXYTOCIN 30 UNITS/NS 500 ML 30 UNITS/500 ML BAG IV CONT (12:30)
[2021-01-11] MEDS: fentaNYL CITRATE INJ (*CRX) 100 MCG/2 ML VIAL 50 MCG IV PUSH (17:10)
[2021-01-11] MEDS: ONDANSETRON INJ 4 MG/2 ML VIAL IV PUSH (18:08)
--- NOTE | 2021-01-11 19:35 | PM.OBPRVD ---
OB - Delivery Note Procedure Delivery date: 01/11/21 Procedure: vaginal delivery events: Labor Induction (cholestasis) Intrapartal events: None Induction method: AROM and per pitocin protocol Delivery monitor: external FHT and external uterine Route of delivery: Laceration Description: Perineal - 1st Degree Delivery repair: vicryl Specimen: Yes Quantitative Blood Loss (ml): 90 Anesthesia type: Epidural Disposition: floor Baby Date of : 01/11/21 Time of : 19:20 Weeks of gestation at delivery: 38 Infant gender: Male Weight (pounds): 6 Weight (ounces): 12 presentation: compound (hand) position: Left Occiput Anterior Placenta delivery description: Spontaneous cord vessel description: 3 Vessels, Clamped/Cut and Delayed Cord Clamping score one minute: 9 score five minutes: 9 Narrative: mother and baby skin to skin in stable condition
[2021-01-11] MEDS: OXYTOCIN 30 UNITS/NS 500 ML 30 UNITS/500 ML BAG 125 UNITS IV CONT (19:56)
[2021-01-11] MEDS: IBUPROFEN 600 MG TABLET PO (19:58)
[2021-01-11] MEDS: BENZOCAINE 20% AER SPR (*SP) 56 GM CAN 1 SPRAY TOPICAL (19:59)
[2021-01-11] MEDS: WITCH HAZEL 40 PADS 1 PAD TOPICAL (19:59)
[2021-01-12 03:44] VITALS: BP 111/69; PULSE 75; RESP 18; TEMP 36.5; O2SAT 98
[2021-01-12 05:16] LABS: Hematocrit 33.7 % (37.0-47.0); Hemoglobin 10.4 g/dL (12.0-15.0)
--- NOTE | 2021-01-12 07:51 | PM.OBPNVD ---
OB - PN: Subj Subjective Date/time seen: 01/12/21 07:51 Patient comments: no complaints baby status: doing well OB - PN: Obj Data Labs CBC & Chem 7: 01/12/21 03:31 Labs: Laboratory Results - last 24 hr 01/12/21 03:31 Hgb 10.4 L Hct 33.7 L OB - PN A/P Plan day: 1 Plan: routine care Time Spent With Patient Time: Total time spent is greater than 50% in coordination of care (as documented) at patient's floor/unit and/or counseling patient: Time with patient: less than 15 minutes Review of Systems Review of Systems: All systems reviewed & are unremarkable except as noted in HPI and below Exam Narrative: Fundus firm and vaginal flow controlled. No lower ext redness, warmth, or edema. Negative homans. Const: General: comfortable Chest: Breast/axilla inspection: normal inspection of the breasts Resp: Effort & Inspection: normal respiratory effort Cardio: Rate: regular rate GI: GI Palp: Yes Soft to palpation Psych: Appearance: grossly normal Affect: normal affect Attitude: cooperative Thought content: Yes Normal thought content present Judgement: Good judgement present (Psych)
[2021-01-12] MEDS: MULTIVIT/MIN/PREN/FOL AC/IRON TABLET 1 TAB PO (08:09)
[2021-01-12] MEDS: IBUPROFEN 600 MG TABLET PO ×2 (08:09→20:15)
[2021-01-12] MEDS: DOCUSATE SODIUM 100 MG CAPSULE PO (08:09)
[2021-01-12 08:15] VITALS: PULSE 76; RESP 16; O2SAT 98
[2021-01-12 08:50] VITALS: BP 118/69; PULSE 66; RESP 16; TEMP 36.3; O2SAT 97
[2021-01-12 09:52] LABS: Rapid Plasma Reagin Non-Reactive (NonReactive)
[2021-01-12 12:30] VITALS: BP 120/73; PULSE 76; RESP 16; TEMP 36.6; O2SAT 98
--- NOTE | 2021-01-12 12:54 | WPDANLDPN2 ---
Anes-Prog Note L&D Date/Time: 01/12/21 12:54 Comfortable throughout: labor and delivery Neuraxial method: epidural Epidural/Spinal procedure site: clean & non-tender Neuro status: Neuro function grossly intact. Cardiovascular status: normal Respiratory status: normal Airway patency: baseline Mental status: baseline Post-Op hydration status: normal Vital Signs: Last Vital Signs Temp 36.6 C 01/12/21 12:30 Pulse 76 01/12/21 12:30 Resp 16 01/12/21 12:30 BP 120/73 01/12/21 12:30 Pulse Ox 98 01/12/21 12:30 Pain score (VAS): 0 I/O: Intake & Output 01/11/21 01/12/21 01/12/21 23:59 07:59 15:59 Intake Total 550 Output Total 85 Balance 465 Post-procedural complaints: none Patient feedback: Patient satisfied with anesthetic care.
--- NOTE | 2021-01-12 13:16 | PC.NURSE ---
Consult with pt., mother reports has issued with feeding due to frequent spitting up. Infant was lavaged and last feeding infant was more awake and eager. Mother reports slight tenderness with feedings. This is mother?s 3rd child to breastfeed. Requested mother call out next feeding for observation per policy. Reviewed feeding cues, frequencies, duration of feedings, feeding elimination flow sheet, and signs of adequate intake. Demonstrated stimulation techniques to wake infant for feeding. Reviewed signs of a correct latch, effective nursing and suck swallow ratio. Nipple care reviewed of lanolin after feedings and warm compresses as needed. Requested mother to call out for RN/LC assistance next feeding to assess latch due reported nipple tenderness. Instructed feeding should be initiated three hours from start of last feeding or if feeding cues are noted before. Mother voiced understanding of information shared.
[2021-01-12] MEDS: ACETAMINOPHEN 325 MG TABLET 650 MG PO (13:18)
[2021-01-12 17:00] VITALS: BP 125/82; PULSE 72; RESP 16; TEMP 36.1; O2SAT 98
[2021-01-12 19:30] VITALS: BP 127/74; PULSE 83; RESP 16; TEMP 36.2; O2SAT 98
--- NOTE | 2021-01-13 07:17 | PM.OBPNVD ---
OB - PN: Subj Subjective Date/time seen: 01/13/21 07:17 Patient comments: no complaints baby status: doing well OB - PN: Obj Data Labs CBC & Chem 7: 01/12/21 03:31 Labs: Laboratory Results - last 24 hr 01/11/21 06:30 RPR Non-reactive OB - PN A/P Plan day: 2 Plan: routine care and discharge home Time Spent With Patient Time: Total time spent is greater than 50% in coordination of care (as documented) at patient's floor/unit and/or counseling patient: Review of Systems Review of Systems: All systems reviewed & are unremarkable except as noted in HPI and below Exam Const: General: cooperative, healthy appearing, comfortable and no acute distress
--- NOTE | 2021-01-13 07:18 | P.DS_ITS ---
DS: Admitting Diagnosis Discharge Date 01/13/21 Admitting Diagnosis IOL OB - DS: Summary OB Procedures : None OB Procedures Intrapartum: Spontaneous Vag Delivery OB Procedures: : None Time Spent with Patient Time attestation: Total time spent providing and/or coordinating discharge services: DS: Data Data Completed and Pending Pending studies at discharge: Pending at discharge 01/11/21 19:27 Surgical [PTH] Routine Labs on day of discharge: Labs from last 24 hours 01/11/21 06:30 RPR Non-reactive Discharge Plan Discharge Attending physician on discharge: Ashli Montez Discharging Clinician: Natalie Morris Patient Disposition: Home, Self-Care Activity: pelvic rest Diet: regular Patient Instructions: Antibiotic Form Stand Alone Forms: General Discharge Information Follow-up/Referrals: Natalie Morris CNM [Certified Nurse Director Of Community Education] - 4 Weeks Discharge Medications: Continued PNV cmb#95-ferrous fumarate-FA [] 28 mg iron- 800 mcg Tablet 1 tablet PO HS RF: 0 levothyroxine 137 mcg capsule 137 mcg PO DAILY RF: 0 Discontinued ursodiol 300 mg capsule 300 mg PO TIDWMEAL RF: 0 Date of admission: 01/11/21 06:07 Primary Care Provider: Paul Quiñonez Admitting Provider: Ashli Mnotez Attending physician on admission: Ashli Montez Condition: Stable
[2021-01-13 07:30] VITALS: PULSE 83; RESP 16; O2SAT 98
[2021-01-13] MEDS: IBUPROFEN 600 MG TABLET PO (08:09)
[2021-01-13] MEDS: MULTIVIT/MIN/PREN/FOL AC/IRON TABLET 1 TAB PO (08:09)
[2021-01-13] MEDS: DOCUSATE SODIUM 100 MG CAPSULE PO (08:09)
[2021-01-13 08:10] VITALS: BP 120/79; PULSE 67; RESP 18; TEMP 36.6; O2SAT 98
--- NOTE | 2021-01-13 08:48 | PC.NURSE ---
Breast feeding note; spent time at bedside with pt; baby was at the breast, post circ, when nurse came in to room; assisted mother to get infant to deeper latch, and baby's lips flanged. She was taught how to adjust infant to deeper latch while on the breast; Nurse also suggested cross-cradle position to latch , possibly getting him on with a deeper latch to start the feeding. Nurse offered to return at the next feeding to assist with latch on if mother desired. She agreed. Reviewed with mother frequency of feedings, 8-12 a day, q2-3h and on demand, waking if necessary. Mother has chosen to do some supplement; nurse suggested always breast feed first, then offer supplement if baby needed, or mom chose to. Reviewed use of feeding log for monitoring feedings and output per day of age, care of breasts through engorgement, and nipple care. Breast feeding section in Mother Baby Guide flagged, including LC contact information, and nurse encouraged mother to read these pages prior to discharge and that nurse would return if she had questions. Mother seemed attentive to instruction, voiced understanding and had no questions for nurse.
--- NOTE | 2021-01-13 15:55 | PC.NURSE ---
Patient was given the opportunity to view the discharge video Mother & Baby Care, The First Two Weeks and to ask questions. Patient declined viewing the video and has been given the mother/baby guide for home reference.
[2021-01-14 09:59] VITALS: BP 131/83; PULSE 76; RESP 16; TEMP 37.1; O2SAT 97
== END 2021-01-13 16:00 | disposition home or self-care (01) | DRG 805 ==
LOC: ANHLDR 06:10 → ANHOB2 22:06
PROVIDERS: Advanced Practice Midwife; Admitting Provider Obstetrics & Gynecology; PCP Family Medicine; Visit Provider Obstetrics & Gynecology
DX: O26.62 Liver and biliary tract disorders in childbirth (principal); K83.1 Obstruction of bile duct; Z37.0 Single live birth; O70.0 First degree perineal laceration during delivery; O32.2XX0 Maternal care for transverse and oblique lie, not applicable or unspecified; O99.824 Streptococcus B carrier state complicating childbirth; O62.3 Precipitate labor; O76 Abnormality in fetal heart rate and rhythm complicating labor and delivery; Z3A.38 38 weeks gestation of pregnancy
CPT/HCPCS: 36415; 85014; 85018; 85025; 86592; 86850; 86900; 86901; 88307; A9270; J0290; J2405; J2590; J3010; J7120

== ENCOUNTER 2021-06-21 19:24 | Emergency (ER) | payer OTHER, SELFPAY ==
--- NOTE | ~2021-06-21 | CT_ITS ---
EXAMINATION: CT brain wo con INDICATION: Right-sided facial droop COMPARISON: 04/29/2019 TECHNIQUE: Standard unenhanced head CT. The dose-length product (DLP) was 605.33 mGy-cm. The mA was a djusted according to patient size. Iterative reconstruction technique was employed. FINDINGS: There is no intracranial hemorrhage, acute infarction, or abnormal mass lesion. The ventric les are normal. There is no abnormal mass effect or midline shift. The schneider-white matter differentiat ion is normal. The basal cisterns are patent. The orbits are normal. The paranasal sinuses, mastoids and calvarium are normal. IMPRESSION: 1. No acute intracranial abnormality. Reviewed, dictated and finalized at location F.
[2021-06-21 19:27] VITALS: BP 143/99; PULSE 107; RESP 16; TEMP 36.1; O2SAT 100
[2021-06-21 23:00] VITALS: BP 125/83; PULSE 82; RESP 18; O2SAT 98
[2021-06-21 23:07] LABS: Basophils Percent Auto 0.4 % (0.2-1.2); Eosinophils Absolute Auto 0.2 K/mm3 (0-0.3); Eosinophils Percent Auto 1.5 % (0-4.4); Hematocrit 37.5 % (37.0-47.0); Hemoglobin 11.7 g/dL (12.0-15.0); Immature Granulocyte Absolute 0.04 K/mm3 (0.00-0.031); Immature Granulocyte Percent A 0.4 % (0-0.5); Lymphocytes Absolute Auto 2.88 K/mm3 (0.9-3.2); Lymphocytes Percent Auto 27.2 % (18.3-44.2); Mean Corpuscular HGB Conc 31.2 g/dl (32-36); Mean Corpuscular Hemoglobin 26.5 pg (26-34); Mean Platelet Volume 9.7 fl (7.4-10.4); Monocytes Absolute Auto 0.7 K/mm3 (0.1-0.6); Monocytes Percent Auto 6.3 % (2.6-8.5); Neutrophils Absolute Auto 6.8 K/mm3 (1.3-6.7); Neutrophils Percent Auto 64.2 % (45.5-73.1); Platelet Count Result 317 k/mm3 (150-375); Red Blood Count 4.41 M/mm3 (4.2-5.4); White Blood Count 10.6 K/mm3 (4.5-10.0)
[2021-06-21 23:15] LABS: Alanine Aminotransferase 21 U/L (4-35); Alkaline Phosphatase 100 U/L (38-126); Anion Gap 6 mmol/L (8-16); Aspartate Amino Transferase 26 U/L (14-36); Bilirubin,Total 0.4 mg/dL (0.2-1.3); Blood Urea Nitrogen 11 mg/dL (7-17); Calcium 8.7 mg/dL (8.4-10.2); Carbon Dioxide 29 mmol/L (22-30); Chloride 103 mmol/L (98-107); Estimated CRCL calculation 107 ml/min; Estimated Glomerular Filt Rate > 60; Glucose 113 mg/dL (65-110); Potassium 4.1 mmol/L (3.4-5.0); Sodium 138 mmol/L (137-145)
--- NOTE | 2021-06-21 23:40 | ED.GENADULT ---
HPI - General Adult General Chief complaint: Unspecified Stated complaint: right side facial droop Time Seen by Provider: 06/21/21 21:32 Source: patient Mode of arrival: ambulatory Limitations: no limitations History of Present Illness HPI narrative: 31-year-old otherwise healthy here with complaints of right facial droop started about 7:30 PM this evening. She denies any headache, weakness. Denies any ear pain. Onset (ago): hour(s) (4) Location: face Severity: mild Associated symptoms: denies other symptoms Related Data Home Medications Medication Instructions Recorded Confirmed levothyroxine 137 mcg capsule 137 mcg PO DAILY 11/07/20 12/24/20 PNV cmb#95-ferrous fumarate-FA 1 tablet PO HS 12/14/20 12/24/20 [] Allergies Allergy/AdvReac Type Severity Reaction Status Date / Time No Known Allergies Allergy Verified 12/14/20 15:50 Review of Systems Review of Systems: All systems reviewed & are unremarkable except as noted in HPI and below Constitutional: Constitutional: Reports no additional constitutional complaints Eyes: Eyes: Reports no additional eye complaints ENT: Reports system reviewed and no additional complaints, except as documented Cardiovascular: Cardiovascular: Reports no additional cardiovascular complaints Respiratory: Respiratory: Reports no additional respiratory complaints Gastrointestinal: Gastrointestinal: Reports no additional gastrointestinal complaints Neurologic: Reports as per HPI PMFSH Past Medical History Medical History Acute bronchitis (~03/07/21) Acute non-recurrent maxillary sinusitis Anxiety and depression Exposure to Streptococcal pharyngitis Hypothyroid Migraine without aura and without status migrainosus, not intractable Overweight (BMI 25.0-29.9) and not yet delivered UTI (urinary tract infection) Venomous spider bite (06/23/20) right posterior thigh with cellulitis Surgical History Surgical History H/O dilation and curettage Family History Family History Sibling Nader syndrome Father Blood disorder Mother Asthma Hypothyroidism Social History Social History Smoking status: Never smoker Alcohol intake: never Substance use: never Spiritual care concerns: No Exam Narrative: GENERAL: Well-appearing, well-nourished, and in no acute distress. HEAD: Normocephalic, atraumatic. EYES: PERRLA and EOMI. Right facial droop NECK: Supple. CHEST: Clear to auscultation. No respiratory distress. HEART: Regular rate and rhythm. No murmur heard. Normal peripheral pulses. ABDOMEN: Soft, nontender, nondistended, normal active bowel sounds. EXTREMITIES: Normal range of motion. No edema. SKIN: Warm, dry, no rash. NEURO: Right facial droop. Alert and oriented x3. PSYCH: Normal mood and affect. Course Course Emergency Course: Inform patient about her lab work, CT findings. 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 Recommended to take steroids as prescribed. Vital Signs Vital signs: Vital Signs Temperature 36.1 C L 06/21/21 19:27 Pulse Rate 107 H 06/21/21 19:27 Respiratory Rate 16 06/21/21 19:27 Blood Pressure 143/99 H 06/21/21 19:27 Pulse Oximetry 100 06/21/21 19:27 Temperature 36.1 C L 06/21/21 19:27 Pulse Rate 107 H 06/21/21 19:27 Respiratory Rate 16 06/21/21 19:27 Blood Pressure 143/99 H 06/21/21 19:27 Pulse Oximetry 100 06/21/21 19:27 Medical Decision Making Vital Signs Vital Signs: Vital Signs Temperature 36.1 C L 06/21/21 19:27 Pulse Rate 107 H 06/21/21 19:27 Respiratory Rate 16 06/21/21 19:27 Blood Pressure 143/99 H 06/21/21 19:27 Pulse Oximetry 100 06/21/21 19:27 Temperature 36.1 C L 06/21/21 19:27 Pulse Rate 107 H 06/21/21 19:27 Respirator
[2021-06-21 23:50] VITALS: BP 112/76; PULSE 78; RESP 19; O2SAT 97
== END 2021-06-21 23:50 | disposition home or self-care (01) ==
PROVIDERS: Emergency Provider Family Medicine; PCP Family Medicine
DX: G51.0 Bell's palsy (principal); E03.9 Hypothyroidism, unspecified; Z87.440 Personal history of urinary (tract) infections
CPT/HCPCS: 36415; 70450; 80053; 85025; 99284

== ENCOUNTER 2022-01-13 13:10 | Emergency (ER) | payer MEDICAID, SELFPAY ==
--- NOTE | ~2022-01-13 | XR_ITS ---
EXAMINATION: XR chest 2V Exam Date/Time: 01/13/2022 14:48 [employer]ING INTER[employer] HISTORY: SOB Comparison: 07/02/2018. RESULT: Lines, tubes, and devices: None. Lungs and pleura: Ill-defined segmental airspace disease in the left lower lung. Cardiomediastinal silhouette: Stable. Other: No acute osseous or upper abdominal finding. IMPRESSION: Segmental airspace disease in the left lower lung may represent atelectasis or the consolidation of p neumonia. Reviewed, dictated and finalized at location K. [employer] IMPRESSION: Segmental airspace disease in the left lower lung may represent atelectasis or the consolidation of pneumonia.
[2022-01-13 13:21] VITALS: BP 131/88; PULSE 105; RESP 16; TEMP 36.6; O2SAT 100
--- NOTE | 2022-01-13 14:30 | ED.URI ---
HPI - URI/Sore Throat General Chief Complaint: Upper Respiratory Infection Stated Complaint: SOB/LIGHT HEADED Time Seen by Provider: 01/13/22 14:30 Source: patient, RN notes reviewed and old records reviewed Mode of arrival: ambulatory Limitations: no limitations History of Present Illness HPI Narrative: 31-year-old female who presents to [facility] with complaints of 2 day duration of feeling like she can't take a deep breath and cough and some dyspnea . Patient does have history of asthma and has krysta using her albuterol inhaler without resolution in her symptoms. Patient reports that cough is worse when she lays down and has been sleeping propped up to help her rest.Patient reports that she has not had any fever or any nasal congestion or drainage. MD elicited complaint: cough and sore throat Pertinent past history: asthma Onset (ago): day(s) (2) Associated symptoms: cough and shortness of breath Treatments prior to arrival: other (albuterol) Related Data Home Medications Medication Instructions Recorded Confirmed drospirenone (contraceptive) 4 mg 1 tablet PO DAILY 11/30/21 12/19/21 (28) tablet (Slynd) escitalopram oxalate 10 mg tablet 10 mg PO DAILY 11/30/21 12/19/21 (Lexapro) famotidine 20 mg tablet (Pepcid) 20 mg PO BID 12/19/21 12/19/21 Allergies Allergy/AdvReac Type Severity Reaction Status Date / Time No Known Allergies Allergy Verified 01/13/22 14:26 Review of Systems Review of Systems: CONSTITUTIONAL: Denies malaise, chills, sweats, or fever. EYES: Denies visual changes, redness, or discharge. ENT: Denies rhinorrhea, congestion, sinus pain, otalgia. reports scratchy throat hoarseness. CARDIOVASCULAR: Denies chest pain, palpitations, or edema. RESPIRATORY: Reports cough.? Reports dyspnea. GASTROINTESTINAL: Denies abdominal pain, nausea, vomiting, diarrhea SKIN: Denies rash or itching. MUSCULOSKELETAL: Denies myalgia. NEUROLOGIC: Denies headache. All systems reviewed & are unremarkable except as noted in HPI and below PMFSH Past Medical History Medical History Acute bronchitis (~03/07/21) Acute non-recurrent maxillary sinusitis Anxiety and depression Exposure to Streptococcal pharyngitis Furuncle of extremity Hypothyroid Migraine without aura and without status migrainosus, not intractable Muscle spasm Otitis externa in other diseases classified elsewhere, left ear (~09/20/21) Overweight (BMI 25.0-29.9) Pharyngitis and not yet delivered UTI (urinary tract infection) Venomous spider bite (06/23/20) right posterior thigh with cellulitis Surgical History Surgical History H/O dilation and curettage Family History Family History Sibling Nader syndrome Father Blood disorder Mother Asthma Hypothyroidism Social History Social History Smoking status: Never smoker Alcohol intake: never Substance use: never Lack of Transportation: No Lack of Food: Never True Current Housing: I Have Housing Concerned About Future Housing: No Difficulty Paying Gas/Electric Bills: No Difficulty Paying for Meds: No Currently Unemployed: No Education: Associate Degree Difficulty w/ Childcare or Family Care: No Spiritual care concerns: No Comments At time of signature, agree with nursing past medical, surgical, social and family history. There is no relevant family history pertinent to the presenting complaint Exam Narrative: GENERAL: Well-appearing, well-nourished, and in no acute distress. HEAD: Normocephalic EYES: PERRLA, conjunctivae clear ENT: Nares clear, turbinates edematous and erythematous, scant clear discharge. Mucous membranes moist. TM pearly schneider with dull light reflex bilaterally; no tragal tenderness. Oropharynx
[2022-01-13] MEDS: ALBUTEROL SULFATE NEB 2.5 MG/3 ML INH INHALATION (15:10)
[2022-01-13] MEDS: IPRATROPIUM BR 0.02% INH SOLN 0.5 MG/2.5 ML VIAL INHALATION (15:10)
[2022-01-13 15:45] VITALS: PULSE 86; O2SAT 100
== END 2022-01-13 15:54 | disposition home or self-care (01) ==
PROVIDERS: Emergency Provider Registered Nurse; PCP Family Medicine
DX: J18.1 Lobar pneumonia, unspecified organism (principal); E03.9 Hypothyroidism, unspecified; F41.9 Anxiety disorder, unspecified; F32.A Depression, unspecified
CPT/HCPCS: 71046; 87081; 87880; 94640; 99213; G0463

== ENCOUNTER 2022-03-30 09:46 | Outpatient (CLI) | payer OTHER, SELFPAY ==
--- NOTE | 2022-04-02 07:09 | WPDPFTINT ---
PFT Procedure Performed PFT Procedure Performed Spirometry with Pre/Post Bronchodilator Plethysmography (Lung Vol) Diffusing Cap (DLCO) Flow Vol Loop PFT Interpretation This is a pulmonary function test with pre and post-bronchodilator spirometry, plethysmography and diffusing capacity. The test was performed and results interpreted in accordance with the 2019 and 2005 ATS/ERS Task Force guidelines respectively using the Global Lung Function Initiative-2012 reference equations. Patient demonstrated good effort and cooperation. Reproducibility criteria were met. The quality of the pre bronchodilator spirometry maneuver was Grade A and post bronchodilator spirometry maneuver was Grade A. Findings: Spirometry: The contour the inspiratory and expiratory flow tracing are normal. The pre bronchodilator FVC is 4.24 L, 104% predicted. The pre bronchodilator FEV1 is 2.87 L, 84% predicted. The pre bronchodilator FEV1: FVC ratio 68%. The post bronchodilator FVC is 4.28 L, representing 1% increase. The post bronchodilator FEV1 is 3.11 L, representing a 9% increase. The post bronchodilator FEV1: FVC ratio 73%. Plethysmography: The total lung capacity is 5.80 L, 108% predicted. The functional residual capacity is 2.85 L, 96% predicted. The residual volume is 1.56 L, 101% predicted. Diffusing capacity: The diffusing capacity unadjusted for hemoglobin and carboxyhemoglobin is 20.5, 81% predicted. The diffusing capacity adjusted for alveolar volume is 4.82, 101% predicted. Impression: There is a mild obstructive abnormality with a normal FVC and FEV1 and without significant improvement after inhaling a single dose of albuterol. The lung volumes are normal. The diffusing capacity is normal. There are no prior studies for comparison
== END 2022-03-30 09:47 | disposition home or self-care (01) ==
PROVIDERS: PCP Family Medicine; Visit Provider Family Medicine
DX: R06.02 Shortness of breath (principal); R94.2 Abnormal results of pulmonary function studies
CPT/HCPCS: 94060; 94726; 94729

== ENCOUNTER → 2022-05-31 14:17 | Outpatient (CLI) | payer OTHER, SELFPAY ==
--- NOTE | ~2022-05-31 | XR_ITS ---
XR chest 2V DATE: 05/31/2022 14:32 INDICATION: Chronic cough for years TECHNIQUE: PA and lateral views COMPARISON: 01/13/2022 PA and lateral chest FINDINGS: Normal heart size. No hilar or mediastinal enlargement. No pulmonary infiltrate or consolid ation, pleural effusion or pulmonary vascular congestion or pneumothorax. Included skeletal structure s are unremarkable. IMPRESSION: Negative Reviewed, dictated and finalized at location A. IMPRESSION: Negative
== END ==
PROVIDERS: PCP Family Medicine; Visit Provider Nurse Practitioner
DX: R05.3 Chronic cough (principal)
CPT/HCPCS: 71046

== ENCOUNTER 2022-07-05 12:32 | Outpatient (CLI) | payer OTHER, SELFPAY ==
--- NOTE | 2022-07-05 16:34 | P.METCHAL_ITS ---
Methacholine Procedure Perform Procedure Performed Methacholine Challenge Methacholine Challenge Methacholine Challenge: This is a methacholine challenge test. The test was performed and interpreted in accordance with the 2017 ERS technical standard, endorsed by the ATS, using the GLI 2012 reference equations. Testing was performed with increasing doses of nebulized methacholine following a quadrupling dosage protocol. The methacholine dose was delivered via the Independent Spaceist nebulizer using a 1-minutes tidal breathing protocol. The best post-methacholine FEV1 values were used to determine the change from the post diluent FEV1. The delivered dose of methacholine was used to calculate the provocative dose causing a 20% fall in FEV1 (PD20). Findings: Baseline FEV1 2.90 L, 86% predicted. Post diluent FEV1 2.76 L Post 1.81 mcg methacholine FEV1 2.43 L, decreased 12% Post 7.26 mcg methacholine FEV1 2.25 L, decreased 18% Post 29.03 mcg methacholine FEV1 2.21 L, decreased 20% Post albuterol nebulization FEV1 2.74 L Impression: The PD20 is 29.03 mcg which is characterized as moderate airway hyperresponsiveness. There are no prior methacholine challenge studies for comparison
== END 2022-07-05 12:33 | disposition home or self-care (01) ==
LOC: ANHPFT 12:33
PROVIDERS: PCP Family Medicine; Visit Provider Nurse Practitioner
DX: J45.909 Unspecified asthma, uncomplicated (principal)
CPT/HCPCS: J7674

== ENCOUNTER 2022-09-24 12:35 | Outpatient (CLI) | payer OTHER, SELFPAY ==
--- NOTE | ~2022-09-24 | MR_ITS ---
EXAMINATION: MR brain/brain stem wo/w con DATE: 09/24/2022 13:18 INDICATION: Worsening headache with facial muscle asymmetry. TECHNIQUE: Magnetic resonance imaging (MRI) of the brain and brainstem was performed without and with 18 mL MultiHance intravenous contrast. COMPARISON: Head CT 06/21/2021 FINDINGS: There are approximately six foci of nonspecific increased T2-weighted signal intensity in t he cerebral white matter. There is no intracranial hemorrhage, acute infarction, or abnormal intracra nial mass lesion. The ventricles are normal in size. The paranasal sinuses are clear. The orbits are normal. The mastoid air cells are normal. IMPRESSION: 1. Mild nonspecific cerebral white matter disease. The differential diagnosis includes premature weed eradicator huy small vessel ischemic disease (especially if the patient has cardiovascular risk factors), demyel inating disease such as multiple sclerosis, drug abuse, vasculitis, or reactive astrocytosis (gliosis ) secondary to nonspecific etiology. Reviewed, dictated and finalized at location A. IMPRESSION: 1. Mild nonspecific cerebral white matter disease. The differential diagnosis i ncludes premature chronic small vessel ischemic disease (especially if the willi ent has cardiovascular risk factors), demyelinating disease such as multiple sc lerosis, drug abuse, vasculitis, or reactive astrocytosis (gliosis) secondary t o nonspecific etiology.
== END 2022-09-24 12:36 | disposition home or self-care (01) ==
PROVIDERS: PCP Family Medicine; Visit Provider Family Medicine
DX: G43.009 Migraine without aura, not intractable, without status migrainosus (principal); R93.0 Abnormal findings on diagnostic imaging of skull and head, not elsewhere classified
CPT/HCPCS: 70553; A9577

== ENCOUNTER 2023-01-22 15:58 | Outpatient (CLI) | payer OTHER, SELFPAY ==
--- NOTE | ~2023-01-22 | US_ITS ---
EXAMINATION: US right upper quadrant DATE: 01/22/2023 17:03 INDICATION: R10.11 - Right upper quadrant pain TECHNIQUE: Multiple grayscale and Doppler ultrasound images of the right upper quadrant were obtained . COMPARISON: None available. FINDINGS: The visualized portions of the pancreas are normal. The liver is normal with normal echogen icity and echotexture. No surface nodularity. Normal hepatopetal flow in the main portal vein. The ga llbladder is normal with no abnormal wall thickening, pericholecystic fluid or stones. The common geni e duct measures 3 mm. There was no sonographic Coley sign. IMPRESSION: Normal right upper quadrant ultrasound findings. Reviewed, dictated and finalized at location K. 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
== END 2023-01-22 15:59 | disposition home or self-care (01) ==
PROVIDERS: PCP Nurse Practitioner Family; Visit Provider Nurse Practitioner Family
DX: R10.11 Right upper quadrant pain (principal)
CPT/HCPCS: 76705

== ENCOUNTER 2023-03-25 10:18 | Emergency (ER) | payer OTHER, MEDICAID, SELFPAY | END 2023-03-25 11:25 | disposition left against medical advice (07) | PROVIDERS: PCP Nurse Practitioner Family | DX: Z53.21 Procedure and treatment not carried out due to patient leaving prior to being seen by health care provider (principal) | CPT/HCPCS: 99199 ==

== ENCOUNTER → 2023-09-10 14:33 | Outpatient (CLI) | payer OTHER, SELFPAY ==
--- NOTE | ~2023-09-10 | XR_ITS ---
3 VIEWS LUMBAR SPINE Ordering provider: Elizabeth Lambert NP History: . M54.50-Low back pain,worsening, unspecified,no injury . Comparison: None. FINDINGS: VERTEBRAL BODIES: No visible fracture or subluxation. DISK SPACES: Normal. SOFT TISSUES: Normal. IMPRESSION: No acute osseous abnormality lumbar spine. Reviewed, dictated and finalized at location A.
--- NOTE | ~2023-09-10 | XR_ITS ---
XR hip RT min 2V Ordering provider: Elizabeth Lambert NP History: . M25.551 - Pain in right hip,worsening,no injury . Comparison: None. FINDINGS: BONES: No acute fracture or dislocation. HIP JOINT SPACES: Normal. PUBIC SYMPHYSIS: Normal. Normal right sacroiliac joint. SOFT TISSUES: Normal. IMPRESSION: No acute osseous abnormality pelvis and right hip. Reviewed, dictated and finalized at location A.
== END ==
PROVIDERS: PCP Family Medicine; Visit Provider Nurse Practitioner Family
DX: M25.551 Pain in right hip (principal); M54.50 Low back pain, unspecified; M79.604 Pain in right leg
CPT/HCPCS: 72100; 73502

== ENCOUNTER → 2023-12-23 09:11 | Outpatient (CLI) | payer OTHER, SELFPAY ==
--- NOTE | ~2023-12-23 | XR_ITS ---
EXAMINATION: XR lumbar spine min 4V DATE: 12/23/2023 09:29 INDICATION: Low back pain, unspecified. TECHNIQUE: 5 views of lumbar spine were obtained. COMPARISON: Lumbar spine radiographs 09/10/2023 FINDINGS: There is 4 degrees dextrocurvature of lumbar spine. Vertebral body heights and intervertebr al disc heights are normal. There are endplate osteophytes at multiple levels. There is multilevel mi ld facet joint osteoarthritis. There is moderate right facet joint osteoarthritis at L5-S1. IMPRESSION: 1. Mild lumbar spondylosis. Reviewed, dictated and finalized at location B. IMPRESSION: 1. Mild lumbar spondylosis.
== END ==
LOC: EXPTRAD 09:13
PROVIDERS: PCP Nurse Practitioner Family; Visit Provider Nurse Practitioner Family
DX: M47.896 Other spondylosis, lumbar region (principal)
CPT/HCPCS: 72110

== ENCOUNTER 2024-06-22 11:16 | Outpatient (CLI) | payer OTHER, SELFPAY ==
--- OUTSIDE RECORDS SUMMARY | 2024-06-22 13:20 | XMS_ITS | Clinical Summary ---
Author Organization [facility] [employer] Address [address] [place] [address] Care Team Providers Care Food And Nutrition Supervisor Name Role Phone Gwen Pacheco MD Primary Care Provider [phone] Source Comments [facility] [employer],non-owned Affiliates and Associated Physician Practices is amultiple site organization consisting of ambulatory clinics and hospital sitesin [place], [place], [place] and [place]. This disclosure is being madepursuant to the Care Everywhere program and may not contain all information available regarding this patient. Last updated 17.[facility] [employer] Allergies No known active allergies Medications * Be aware that medications may not be up to date on this document. Alwaysverify current medications with the patient. levothyroxine (SYNTHROID) 125 MCG tabletIndicatio ns:Hypothyroidi sm Take 125 mcg by mouth daily before breakfast Reasons: Underactive Thyroid Active Vit-DSS-Fe Fum-FA ( VITAMIN WITH IRON) tabletIndicatio ns: Take 1 tablet by mouth once daily Reasons: Active ursodiol (ACTIGALL) 300 MG capsule Take 300 mg by mouth 2 times daily Active aspirin (ASPIRIN) 81 MG chew tabletIndicatio ns:preeclampsia prevention Take 2 (two) tablets by mouth once daily Reasons: preeclampsia prevention 100 tablet 11 Active Active Problems Problem Noted Date Diagnosed Date abnormal bile acids 09/05/2020 Overview (09/05/2020): 08/28/20 LABS: elevated bile acid: 10 ; ALT 10; AST 7; BUN 5; CRE 0.63 Assessment & Plan (09/07/2020 1:03 PM CDT): Intrahepatic cholestasis of This disorder is suspected in women with generalized pruritus without a rash. The pruritis may affect any part of the body--it is commonly generalized or effects the palms and soles. There is not consensus about the most reliable biochemical test for the diagnosis of intrahepatic cholestasis of . Risk factors Risk factors for cholestasis include: ethnicity, winter season, vitamin-D deficiency, selenium deficiency, Liver disease, hepatitis-C virus infection, gallstones and mutations in phospholipid and bile salt transporters. Cholestasis can be worsened by exogenous estrogen as well as certain antibiotics [e.g erythromycin, flucoxacillin, amoxicillin with clavulanic acid]. Hoa has a negative HSV screen. She does not endorse gallstone symptoms. Diagnosis Intrahepatic cholestasis can be diagnosed when maternal total bile acids are greater than 10 micromol/liter. Elevations of bile acids may be classified as: mild for values ranging between 10-39, moderate between 40-99 and severe for values greater than 100 micromol/liter. risks The risk of cholestasis of include: delivery, meconium stained fluid, bile-acid induced arrythmia, asphyxia and demise. Most patients have a resolution of symptoms within 24 hours of delivery. Studies demonstrate the risk is greater when maternal serum bile acid levels are greater than 40 micromol/L and greatest when they are above 100 micromol/L. Published reports of / morbidity and mortality In one retrospective cohort study of 215 women with cholestasis, the following results were reported: Early onset of diagnosis with more severe elevation of bile acids; the majority of cases were mild cholestasis; mean gestational at delivery ranging between 38-39 weeks for mild cholestasis to 37 weeks for severe cholestasis; the only subgroup with demise/ were those with severely elevated bile acids (greater than 100 micromol/liter)--n=2/21 (9.5% frequency for this sub group and 0.9% for the whole cohort (n=2/215)); there were 2 cases with asphyxia as determined by cord gas at delivery in the moderate cholestasis group--n=2/86 (2.3 percent). A population study out of the [place] reported on 669 cases of severe cholestasis in colmenares pregnancies (defined as a total bile acid greater than 40 micromol/liter). This study reported the following results: Mean gestational age at delivery 37.5 weeks; delivery cord blood pH </= 7.1 seen in 8.5% (n=24/283 samples studied); stillbirth 1.5% (10/669) compared to the control of 0.5% (12/2204)--7 of 10 cases of FD had a coexistent complications such as preeclampsia or gestational diabetes, the median gestational age at delivery in the case of stillbirth was 36 weeks, peak bile acids were significantly higher in these cases (median 137 [IQR 104-159] micromol/liter), NICU admission 12%--nearly half of these cases were related to iatrogenic delivery and respiratory problems. Antepartum surveillance with NST has been studied, but has relatively poor predictive value of a demise and has not been demonstrated to decrease stillbirth. Demise can occur soon after reassuring testing. For Hoa, I believe it is reasonable to perform testing. This may be started around 32 weeks and may be performed once or twice weekly depending on the discretion of the primary OB. There is a lack of detail in the literature concerning whether or not repeated assessment of bile salts is warranted--this was discussed. Treatment of symptoms Ursodiol is an excellent drug for providing symptom relief and decreasing bile salts in the maternal serum. This medication is usually started at a dose of 500 mg BID and may be increased further [up to a total daily dose of 2 grams per day] for better symptom relief. No treatment has been shown to reduce the risks associated with ICP. Delivery The mode of delivery is not determined by this diagnosis but rather typical Obstetrical indications. Timing of delivery for mild cholestasis is recommended by the due date. In cases of severely elevated bile acids, timing of delivery is controversial, some advocate for delivery at 37 weeks for bile acids greater than 40 and consideration for delivery between 34-37 weeks for bile acids greater than 100 micromol/liter. Large cohort studies summarized above demonstrated a trend of greatest concern in those pregnancies with total bile acids greater than 100 micromol/liter. Late delivery, either spontaneous or iatrogenic, has been associated with increased NICU admission and respiratory complications. Recurrence The rate of recurrence is 40-90%. Recommendations 1. Increase ursodiol for improved symptomatic relief 2. Hygiene changes for symptomatic relief--reviewed with patient 3. Vitamin D assessment--requisition given 1. IF deficient would benefit from vitamin D supplementation 4. testing-- if desired by the primary OB--starting around 32 weeks or later 5. No appreciated indication for delivery prior to 39 weeks for mildly elevated bile acids Fourth 09/05/2020 Overview (09/05/2020): O+,Neg, Hep C: NR HgA1c: 5.6 NIPT: LR per patient; MSAFP: Neg Encounter for anatomic survey 09/02/2020 Family history of genetic disorder 09/02/2020 Overview (09/07/2020): Patients sister has Nader Syndrome/ sporadic deletion of portion of chromosome 7 (patient believes she has 50% chance of carrying it per information she received from her mother). Patient's sister was tested 27-28 yrs ago when FISH came out. Family History Medical History Relation Name Comments CAD (Coronary Artery Disease) Maternal Grandfather Leukemia Maternal Grandfather CAD (Coronary Artery Disease) Maternal Grandmother CAD (Coronary Artery Disease) Paternal Grandfather Cancer - Lung Paternal Grandfather CAD (Coronary Artery Disease) Paternal Grandmother Cancer - Skin, Non Melanoma Paternal Grandmother Diabetes; unknown type Paternal Grandmother Other Sister Relation Name Status Comments Brother Alive Father Other polycythemia Maternal Grandfather Maternal Grandmother Alive Mother Alive Paternal Grandfather Paternal Grandmother Sister Other Nader Syndro me(sporatic deletion of a portion of Chromosome 7) Social History Tobacco Use Types Packs/Day Years Used Date Smoking Tobacco: Never Smokeless Tobacco: Never Alcohol Use Standard Drinks/Week Comments Not Currently 0 (1 standard drink = 0.6 oz pur e alcohol) Comments No Sex and Gender Information Value Date Recorded Sex Assigned at Not on file Legal Sex Female 7:35 AM 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 Gender Identity Not on file Sexual Orientation Not on file Last Filed Vital Signs Vital Sign Reading Time Taken Comments Blood Pressure 128/80 09/07/2020 10:11 AM CDT Pulse 97 09/07/2020 10:11 AM CDT Temperature - - Respiratory Rate - - Oxygen Saturation - - Inhaled Oxygen Concentration - - Weight 90 kg (198 lb 6.4 oz) 09/07/2020 10:11 AM CDT Height - - Body Mass Index - - Plan of Treatment Health Maintenance Due Date Last Done Comments DTAP/TDAP/TD VACCINES (1 - Tdap) 2007 HEPATITIS B VACCINE (1 of 3 - 19+ 3-dose series) 2007 COVID-19 VACCINE (1 - 2023-2 5 season) 2023 DEPRESSION SCREENING 02/26/2024 INFLUENZA VACCINE (Season Ended) 2024 11/06/2017 ZOSTER VACCINE (1 of 2) 2038 HIV SCREENING Completed 07/08/2020 HEPATITIS C SCREENING Completed 08/05/2020 , 07/08/2020 HIB VACCINE Aged Out No longer eligi ble based on patient's age to complete this topic HPV VACCINE Aged Out No longer eligi ble based on patient's age to complete this topic MENINGOCOCCAL (Group B) VACCINE SHARED DECISION-MAKING Aged Out No longer eligible based on patient's age to complete this topic MENINGOCOCCAL GROUPS A/C/Y/W VACCINE Aged Out No longer eligible b ased on patient's age to complete this topic PNEUMOCOCCAL VACCINE Aged Out No long er eligible based on patient's age to complete this topic Insurance [facility] Care Teams Food And Nutrition Supervisor Relationship Specialty Start Date End Date Gwen Pacheco MD [address] [phone] PCP - General 07/27/08
--- OUTSIDE RECORDS SUMMARY | 2024-06-22 13:20 | XMS_ITS | Referral Summary ---
Author Organization [facility] [address] Address [address] [place] [address] Care Team Providers Care Twill Cutter Name Role Phone Paul Quiñonez MD Unavailable Paul Quiñonez MD Primary Care Provider [phone] Allergies No known active allergies Medications albuterol 2.5 mg /3 mL (0.083 %) nebulizer solution USE 3 ML VIA NEBULIZER THREE TIMES DAILY 3 Active buPROPion XL (WELLBUTRIN XL) 150 mg 24 hr tablet 3 Active famotidine (PEPCID) 40 mg tablet 3 Active Flovent HFA 110 mcg/actuation inhaler INHALE 1 PUFF BY MOUTH TWICE DAILY DIRECTED 3 Active levothyroxine (SYNTHROID) 150 mcg tablet Take 1 tablet (150 mcg total) by mouth every morning 3 Active propranoloL (INDERAL) 10 mg tablet Take 1 tablet (10 mg total) by mouth 3 (three) times a day 90 tablet 11 3 Active Additional Information Patient not taking.Reported on 05/07/2023 LORazepam (ATIVAN) 1 mg tablet Take 1 tablet (1 mg total) by mouth once for 1 dose 1 tablet 4 Active Additional Information Patient not taking.Reported on 05/07/2023 cetirizine (ZyrTEC) 10 mg tablet Take 1 tablet (10 mg total) by mouth daily As needed stated by the patient Active Active Problems Problem Noted Date Diagnosed Date Chronic migraine with aura w ithout status migrainosus, not intractable 11/06/2023 Thyrotoxicosis with thyrotoxic crisis 09/08/2013 Overview (05/31/2016): THYROTOX NOS NO CRISIS Social History Tobacco Use Types Packs/Day Years Used Date Smoking Tobacco: Never Smokeless Tobacco: Never Tobacco Cessation:Counseling Given: Not Answered Alcohol Use Standard Drinks/Week Comments No 0 (1 standard drink = 0.6 oz pur e alcohol) Hunger Vital Sign Answer Date Recorded Within the past 12 months, y ou worried that your food would run out before you got the money to buy more. Never true 01/22/20 23 Within the past 12 months, t he food you bought just didn't last and you didn't have money to get more. 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 Gender Identity Female 01/31/2023 11:27 AM ROLL EDGE MACHINE OPERATOR Sexual Orientation Not on file Last Filed Vital Signs Vital Sign Reading Time Taken Comments Blood Pressure 123/85 05/07/2023 11:25 AM CDT Pulse 92 05/07/2023 11:25 AM CDT Temperature 36.6 C (97.9 F) 03/22/2023 10:18 AM ROLL EDGE MACHINE OPERATOR Respiratory Rate 16 03/22/2023 10:18 AM ROLL EDGE MACHINE OPERATOR Oxygen Saturation 98% 03/22/2023 12:30 PM ROLL EDGE MACHINE OPERATOR Inhaled Oxygen Concentration - - Weight 87.1 kg (192 lb) 05/07/2023 11:25 AM CDT Height 167.6 cm (5' 6 ) 05/07/2023 11:25 AM CDT Body Mass Index 30.99 05/07/2023 11:25 AM CDT Plan of Treatment Not on file Insurance [employer] [address] [place] [address] Care Teams Twill Cutter Relationship Specialty Start Date End Date Paul Quiñonez MD [address] [address] PCP - General 02/02/22 Paul Quiñonez MD [address] [address] Referring Physician Family Medicine 09/25/22
--- OUTSIDE RECORDS SUMMARY | 2024-06-22 13:20 | XMS_ITS | Data Portability ---
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 Patient will come back in a year unless there are new symptoms. [email or web address] Not available 01/29/2024 16:28:48 Plan of Treatment Reminders Order Date Submit Date Provider Last Modified By Organization Details Last Modified Time Details Appointments Robotic TLH 2024 12:00P Dallin STRAUSS MD Not available Not available Not available SURG POST OP 2024 02:45P Dallin STRAUSS MD Not available Not available Not available Lab None recorded. Referral None recorded. Procedures None recorded. Surgeries robotic assisted hysterect juanito with salpingec yanet (SURG) 2024 025 [id number] Heriberto Surgery [facility], [address], [place], [address], 05/18/2024 10:07:37 Imaging US, pelvis 2024 025 [email or web address] [facility] [address], [place], [address], 04/16/2024 13:12:12 US, transvagi nal 2024 025 [email or web address] [address], [address], [place], [address], 04/16/2024 13:12:12 US, pelvis, complete 2023 024 [email or web address] [address], [address], [place], [address], 05/13/2024 21:03:26 US, pelvis 2022 023 [email or web address] [address], [address], [place], [address], 11/22/2022 19:57:31 US, transvagi nal 2022 023 [email or web address] [address], [address], [place], [address], 11/22/2022 19:57:31 Medication Orders None recorded. Patient TargetsNo targets recorded. Patient InstructionsNo instructions recorded. Reason for Referral None Reported. Results Created Date Observation Date Name Description Value Unit Range Abnormal Flag Note LastModifiedBy Organization Detail LastModifiedTime 01/29/20 24 01/29/2024 IMAGE GUIDE D PAP AND HPV REGAR DLESS image guided Pap, HPV regardless of Pap result SEE RESULT S BELOW CASE REPOR T: Cytol ogy Gynec ologi zenaida Repor t Case: [id number] Autho divya g Provi mary lou: Natalie Lujan NP Colle cted: 01/28 1801 Order ing Locat ion: [place] [facility] Recei thuy: 01/29 0302 First Scree n: Jenifer myrick, Jen Rescr een: Dwayne Robles, CT Speci men: Scree taylor Pap - Image d, Cervi x STATE MENT OF ADEQU ACY: Satis facto ry for evalu ation Trans forma tion zone compo nent absen t The absen ce of an endoc ervic al compo nent was confi rmed by an addit ional scree ner. ----- ----- ----- ----- ----- ----- ----- ----- ----- ----- ----- ----- ----- ----- ----- ----- ----- ---- FINAL DIAGN OSIS: Negat alureen for Intra epith elial Leskatie shea or Johnathon carpenter (NIL) . Elect miranda watson d by Dwayne Robles CT on 02/06 at 3:26 PM ----- ----- ----- ----- ----- ----- ----- ----- ----- ----- ----- ----- ----- ----- ----- ----- ----- ---- HPV RESUL TS: HPV mRNA E6/E7 : No HPV mRNA Detec loy NOTE: This high risk HPV mRNA assay detec ts fourt een high- risk HPV types (16, 18, 31, 33, 35, 39, 45, 51, 52, 56, 58, 59, 66, 68) witho ut diffe renti ation . COMME NT: This speci men was revie wed by a Cytot echno logis t and/o r Patho logis t (as indic ated in this repor t) after evalu ation using the Thinp rep Imagi ng Syste m. CLINI ZENAIDA INFOR MATIO N: Menst rual Statu s: LMP (if appli cable ): Clini zenaida Histo ry/Pr eviou s Pap: Type of Neopl bharath (if appli cable ): Signi fican t Clini zenaida Findi ngs: Other Histo ry: Hormo dwight (if appli cable ): PAP EDUCA LEONARDO L NOTE: The Pap Test is a scree taylor test with an inher ent false negat laureen rate. Liqui d-bas ed sampl ing may decre ase, but will not elimi juju, false negat laureen resul ts. A negat laureen resul t does not precl ude the prese nce and/o r devel opmen t of disea se, since the prese nce of abnor mal cells in the sampl e depen ds on the locat ion of the lesio n and sampl ing techn ique. Ana Maria nued regul ar scree taylor is the best metho d of cance r preve ntion . If repor loy cytol ogic findi ng do not corre late with physi zenaida and/o r histo rical findi ngs, furth er inves tigat ion is recom jessica d, as clini daniel warra nted. Not Available [facility] (Lab) [address], [place], [address], 02/07/2024 16:31:10 11/23/19 23 11/22/2022 US, pelvi s No observ ation record ed. [email or web address] [address], [place], [address], 11/22/2022 15:49:46 11/23/19 23 11/22/2022 US, trans vagin al No observ ation record ed. [email or web address] [address], [place], [address], 11/22/2022 15:49:37 11/23/19 23 11/22/2022 US, pelvi s No observ ation record ed. [email or web address] [address], [place], [address], 11/23/2022 16:30:04 04/16/19 25 04/16/2024 US, pelvi s No observ ation record ed. [email or web address] [address], [place], [address], 04/16/2024 09:59:54 04/16/19 25 04/16/2024 US, trans vagin al No observ ation record ed. [email or web address] [address], [place], [address], 04/16/2024 10:00:05 04/16/1904/16/2024 US, pelvi s No observ ation record ed. [address], [place], [address], 04/21/2024 10:36:40 Result Notes None recorded. Problems Name Problem SNOMED Code Status Onset Date Resolution Date Notes Provider Name and Address Organization Details Recorded Time SNOMED CT Concept Completed 201606/17/2020 Encntr for community health program coordinator exam (general ) (routine ) w/o abn findings ;Practic e ID: 0001 Gwen verdugo [facility] 15:54:20 Pelvic and perineal pain [id number] Completed 201706/17/2020 Pelvic and perineal pain;Pra ctice ID: 0001 Gwen verdugo [facility] 15:53:50 Deep pain on intercou rse [id number] Completed 201706/17/2020 Deep dyspareu dipesh;Prac negrito ID: 0001 Gwen verdugo, [facility] 15:53:07 Pain in female genitali a Completed 201706/17/2020 Dysmenor sanaz, unspecif ied;Prac negrito ID: 0001 Gwen verdugo, [facility] 15:53:16 Finding of menstrua l bleeding Completed 201706/17/2020 Excessiv e and frequent menstrua tion with regular cycle;Pr actice ID: 0001 Gwen verdugo [facility] 15:53:18 Pregnanc y test negative [id number] Completed 201706/17/2020 Encounte r for pregnanc y test, result negative ;Practic e ID: 0001 Gwen verdugo [facility] 15:53:55 Imaging result abnormal [id number] Completed 201706/17/2020 Abnormal findings on diagnost ic imaging of body structur es;Pract ice ID: 0001 Gwen verdugo, [facility] 15:53:38 Educatio n Completed 201806/17/2020 Encounte r for oth general cnsl and advice on contrace ption;Pr actice ID: 0001 Gwen vredugo, [facility] 15:53:09 Miscarri age without complica tion [id number] Completed 201806/17/2020 Incomple te spontane ous without complica tion;Pra ctice ID: 0001 Gwen verdugo, [facility] 15:53:45 Screenin g for malignan t neoplasm of cervix Completed 201606/17/2020 Screenin g for malignan t neoplasm s of the cervix;R ecorded Elsewher e: No Locat ion: [facility] S ource: EHR Pantograph Operator huy: N Practi ce ID: 0001 Sky lable Time: 02:45:00 PM Gwen Danielle [facility] 15:54:09 Infectio n screenin g Completed 201606/17/2020 Encounte r for screenin g for oth infec/pa rastc diseases ;Recorde d Elsewher e: No Locat ion: [facility] S ource: EHR Pantograph Operator huy: N Practi ce ID: 0001 Sky lable Time: 02:45:00 PM Gwen Danielle [facility] 15:53:39 Syphilis test finding [id number] Completed 201506/17/2020 Encntr screen for infectio ns w sexl mode of transmis s;Record ed Elsewher e: No Locat ion: [facility] S ource: EHR Pantograph Operator huy: N Practi ce ID: 0001 Sky lable Time: 03:30:00 PM Gwen Danielle kartik, [facility] 15:54:24 Missed miscarri age [id number] Completed 201806/17/2020 Missed ;Recorde d Elsewher e: No [facility] our[facility]: EHR Pantograph Operator huy: N Paradise ce ID: 0001 Sky lable Time: 04:30:00 PM Gwen Lolis verdugo, [facility] 15:53:47 Normal pregnanc y in multigra andrei [id number] 4106 Completed 201606/17/2020 Encounte r for suprvsn of normal pregnanc y, second trimeste r;Record ed Elsewher e: No Locat ion: [facility] S ource: EHR Pantograph Operator huy: N Paradise ce ID: 0001 Sky lable Time: 04:30:00 PM Gwen Lolis verdugo, [facility] 15:53:49 Pregnanc y detectio n examinat ion Completed 201506/17/2020 Encounte r for pregnanc y test, result positive ;Recorde d Elsewher e: No Locat ion: [facility] S ource: EHR Pantograph Operator huy: N Paradise ce ID: 0001 Sky lable Time: 04:15:00 PM Gwen Lolis verdugo, [facility] 15:53:53 Threaten ed miscarri age [id number] Completed 201806/17/2020 Threaten ed ;Recorde d Elsewher e: No Locat ion: [facility] S ource: EHR Pantograph Operator huy: N Paradise ce ID: 0001 Sky lable Time: 09:00:00 AM Gwen Lolis verdugo, [facility] 15:54:26 Gestatio n less than 9 weeks [id number] Completed 201806/17/2020 Less than 8 weeks gestatio n of pregnanc y;Record ed Elsewher e: No Locat ion: [facility] S ource: EHR Pantograph Operator huy: N Nardati ce ID: 0001 Sky lable Time: 04:30:00 PM Gwen verdugo, [facility] 1 15:53:21 Cytologi c finding [id number] Completed 201306/17/2020 Papanico laou smear of cervix with low grade squamous intraepi thelial lesion (LGSIL); Recorded Elsewher e: No Locat ion: [facility] S ource: EHR Pantograph Operator huy: N Nardati ce ID: 0001 Sky lable Time: 11:45:08 AM Gwen verdugo, [facility] 1 15:53:04 Lochia finding Completed 201606/17/2020 Encounte r for routine postpart um follow-u p;Record ed Elsewher e: No Locat ion: [facility] S ource: EHR Pantograph Operator huy: N Paradise ce ID: 0001 Sky lable Time: 09:00:00 AM Gwen verdugo, [facility] 15:53:44 Speciali zed medical examinat ion Completed 201206/17/2020 Gynecolo gical Examinat ion;Sidney rded Elsewher e: No Locat ion: [facility] S ource: EHR Pantograph Operator huy: N Nardati ce ID: 0001 Sky lable Time: 09:00:00 AM Gwen verdugo, [facility] 1 15:54:23 Uterine size for dates discrepa ncy Completed 201606/17/2020 Uterine size-kajal e discrepa ncy, third trimeste r;Record ed Elsewher e: No [facility] S ource: EHR Pantograph Operator huy: N Nardati ce ID: 0001 Sky lable Time: 08:45:00 AM Gwen verdugo [facility] 15:54:28 Gestatio n period, 36 weeks [id number] Completed 201606/17/2020 36 weeks gestatio n of pregnanc y;Record ed Elsewher e: No Locat ion: [facility] S ource: EHR Pantograph Operator huy: N Practi ce ID: 0001 Sky lable Time: 08:15:00 AM Gwen verdugo, [facility] 15:53:[address] Concept Completed 201506/17/2020 Encntr for general adult medical exam w/o abnormal findings ;Recorde d Elsewher e: No Locat ion: [facility] S ource: EHR Pantograph Operator huy: N Practi ce ID: 0001 Sky lable Time: 03:30:00 PM Gwen verdugo, [facility] 15:54:18 Secondar y amenorrh ea [id number] Completed 201506/17/2020 Secondar y amenorrh ea;Pract ice ID: 0001 Gwen verdugo, [facility] 15:54:11 Prematur e labor [id number] Completed 201606/17/2020 labor without delivery , second trimeste r;Practi ce ID: 0001 Gwen verdugo, [facility] 15:54:07 Gestatio n period, 22 weeks [id number] Completed 201606/17/2020 22 weeks gestatio n of pregnanc y;Practi ce ID: 0001 Gwen verdugo, [facility] 15:53:23 Gestatio n period, 28 weeks [id number] Completed 201606/17/2020 28 weeks gestatio n of pregnanc y;Practi ce ID: 0001 Gwen verdugo, [facility] 15:53:26 False labor before 37 complete d weeks of gestatio n [id number] 976986 Completed 201606/17/2020 False labor before 37 complete d weeks of gest, third tri;Prac negrito ID: 0001 Gwen verdugo, [facility] 15:53:14 Gestatio n period, 32 weeks [id number] Completed 201606/17/2020 32 weeks gestatio n of pregnanc y;Practi ce ID: 0001 Gwen verdugo, [facility] 15:53:[address] Concept Completed 201606/17/2020 Maternal care for oth abnormal ity and damage, unsp;Pra ctice ID: 0001 Gwen verdugo, [facility] 15:54:16 Vomiting of pregnanc y [id number] Completed 201606/17/2020 Late vomiting of pregnanc y;Practi ce ID: 0001 Gwen verdugo, [facility] 15:54:30 Gestatio n period, 35 weeks [id number] Completed 201606/17/2020 35 weeks gestatio n of pregnanc y;Practi ce ID: 0001 Gwen verdugo, [facility] 15:53:31 Pregnanc y-induce d hyperten dasha Completed 201606/17/2020 Gestatio nal htn w/o signific ant proteinu catrachito, unsp trimeste r;Practi ce ID: 0001 Gwen verdugo, [facility] 15:53:57 Gestatio n period, 38 weeks [id number] Completed 201606/17/2020 38 weeks gestatio n of pregnanc y;Practi ce ID: 0001 Gwen verdugo, [facility] 15:53:34 Cord entangle ment [id number] Completed 201606/17/2020 Labor and del comp by oth cord entangle , w/o comprsn, unsp;Pra ctice ID: 0001 Gwen verdugo, [facility] 15:53:02 Lacerati on of female perineum Completed 201606/17/2020 Second degree perineal lacerati on during delivery ;Practic e ID: 0001 Gwen verdugo, [facility] 15:53:41 Single live from singleto n pregnanc y [id number] Completed 201606/17/2020 Single live ;Pr actice ID: 0001 Gwen verdugo, [facility] 15:54:15 Gestatio n period, 39 weeks [id number] Completed 201606/17/2020 39 weeks gestatio n of pregnanc y;Practi ce ID: 0001 Gwen verdugo, [facility] 15:53:36 Sexual function painful Completed 201706/17/2020 Dyspareu dipesh;Sidney rded Elsewher e: No Locat ion: [facility] S ource: EHR Pantograph Operator huy: N Practi ce ID: 0001 Sky lable Time: 01:45:00 PM Gwen Danielle [facility] 15:54:13 Evaluati on finding Completed 201706/17/2020 Unsp abnormal cytolog findings in specmn from cervix uteri;Re corded Elsewher e: No Locat ion: [facility] S ource: EHR Pantograph Operator huy: N Practi ce ID: 0001 Sky lable Time: 11:13:55 AM Gwen Lolis verdugo [facility] 15:53:11 Amenorrh ea [id number] Completed 201506/17/2020 Amenorrh ea;Recor ded Elsewher e: No Locat ion: Jackie butler [facility] S ource: EHR Pantograph Operator huy: N Nardati ce ID: 0001 Sky lable Time: 04:15:00 PM Gwen Danielle null, [facility] 15:53:01 Pregnanc y [id number] Completed 202002/01/2021 Marybeth Singleton hl null, [facility] 15:43:51 Hypothyr oidism [id number] Completed Increase d to 137mcg 11/04- rpt 1 month Marybeth Singleton hl null, [facility] 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 Marybeth Singleton hl null, [facility] 15:43:46 Cholesta sis of pregnanc y [id number] Completed increase ursodiol & vit d, antenata l testing at 32 weeks per MFM - del between 38-39wks Marybeth Singleton hl null, [facility] 15:43:46 Past pregnanc y history of gestatio nal hyperten dasha [id number] Completed ASA Marybeth Singleton hl null, [facility] 15:43:46 Asthma 576112865 Active 2023 Gwen Danielle null, [facility] 4 16:30:17 Migraine 02548742 Active 2023 Gwen Danielle null, [facility] 16:30:25 Problem Notes None recorded. Procedures Surgical History Date Name Laterality Status Provider Name and Address Organization Details Recorded Time 01/29/20 24 Date of Last Pap Smear completed [facility] 05/02/2024 09:44:49 11/26/19 19 Dilation and Curettage completed [facility] 10/21/2019 22:39:14 10/04/19 18 Colposcopy completed [facility] 06/17/2020 19:28:24 10/04/19 18 endocervical curettage completed [facility] 06/17/2020 19:44:19 04/14/19 13 Colposcopy completed [facility] 06/17/2020 19:33:20 04/29/19 11 Colposcopy completed [facility] 06/17/2020 19:38:14 06/23/19 08 Colposcopy completed [facility] 06/17/2020 19:33:48 Imaging Results Imaging Date Name Status LastModified by Organization Details LastModified Time 11/22/2022 US, pelvis completed [email or web address] [address], [place], [address], 11/22/2022 15:49:46 11/22/2022 [email or web address] [address], [place], [address], 11/22/2022 15:49:37 11/22/2022 US, pelvis completed [email or web address] [address], [place], [address], 11/23/2022 16:30:04 04/16/2024 US, pelvis completed [email or web address] [address], [place], [address], 04/16/2024 09:59:54 04/16/2024 US, transvaginal completed [email or web address] Jackie butler [address], [place], [address], 04/16/2024 10:00:05 04/16/2024 US, pelvis completed [email or web address] [address], [place], [address], 04/21/2024 10:36:40 Procedure Notes None recorded. Medical Equipment None Reported. Allergies No known drug allergies Medications Name Sig Start Date Stop Date Status Note LastModified by Organization Details LastModified Time nifedipin e ER 30 mg tablet,ex tended release 24 hr 12/23 completed Not Available Not Available Not Available cyclobenz aprine 10 mg tablet TAKE 1 TABLET BY MOUTH TWICE DAILY NEEDED FOR MUSCLE SPASM 10/06 completed Not Available Not Available Not Available levothyro xine 137 mcg tablet TAKE 1 TABLET BY MOUTH EVERY DAY 10/19 completed Not Available Not Available Not Available doxycycli ne hyclate 100 mg capsule take 1 capsule by oral route 2 times every day 10/10 completed Prescrib ed Elsewher e: No [facility] M odify By: [email or web address] z Encoun ter DateTime : 01/30/20 18 01:45:00 PM Not Available Not Available Not Available albuterol sulfate 2.5 mg/3 mL (0.083 %) solution for nebulizat ion USE 3 ML VIA NEBULIZE R THREE TIMES DAILY active Not Available Not Available No t Available triamcino lone acetonide 0.5 % topical cream APPLY TOPICALL Y TWICE DAILY TO RASH ON EXTREMIT IES UNTIL CLEAR BUT NO LONGER THAN 2 WEEKS 10/19 completed Not Available Not Available Not Available cetirizin e 10 mg tablet TAKE 1 TABLET BY MOUTH EVERY DAY NEEDED FOR ALLERGY SYMPTOMS active Not Available Not Available No t Available azithromy liana 250 mg tablet TK 2 TS PO ON DAY 1, THEN TK 1 T PO D FOR 4 DAYS 12/04 /2024 completed Not Available Not Available Not Available fluconazo le 150 mg tablet TAKE 1 TABLET BY MOUTH 1 TIME 01/28 completed Not Available Not Available Not Available famotidin e 40 mg tablet TAKE 1 TABLET BY MOUTH TWICE DAILY 01/28 completed Not Available Not Available Not Available prednison e 20 mg tablet TAKE 1 TABLET BY MOUTH TWICE DAILY 10/19 completed Not Available Not Available Not Available Compazine 10 mg tablet take 1 tablet by oral route 3 times every day 08/17 completed Prescrib ed Elsewher e: No Locat ion: [facility] odify By: [email or web address] Bey r DateTime : 03/01/19 02:00:00 PM Not Available Not Available Not Available rizatript an 10 mg tablet 01/28 completed Not Available Not Available Not Available ciproflox acin 500 mg tablet TAKE 1 TABLET BY MOUTH EVERY 12 HOURS 06/17 completed Not Available Not Available Not Available sulfameth oxazole 800 mg-trimet hoprim 160 mg tablet TAKE 1 TABLET BY MOUTH EVERY 12 HOURS 01/28 completed Not Available Not Available Not Available butalbita l-acetami nophen-ca ffeine 50 mg-325 mg-40 mg tablet TAKE 1 TABLET BY MOUTH EVERY 4 TO 6 HOURS NEEDED FOR PAIN 06/17 completed Not Available Not Available Not Available propranol ol 10 mg tablet 01/28 completed Not Available Not Available Not Available amoxicill in 875 mg tablet TAKE 1 TABLET BY MOUTH EVERY 12 HOURS 02/10 completed Not Available Not Available Not Available levothyro xine 125 mcg tablet TAKE 1 TABLET BY MOUTH DAILY 12/23 completed Not Available Not Available Not Available Synthroid 88 mcg tablet take 1 tablet by oral route every day 11/24 completed Prescrib ed Elsewher e: No Locat ion: [facility] odify By: [email or web address] Maida r DateTime : 02/13/20 18 11:59:18 AM Not Available Not Available Not Available ursodiol 300 mg capsule TAKE 1 CAPSULE BY MOUTH TWICE DAILY 02/10 completed Not Available Not Available Not Available polymyxin B sulfate 10,000 unit-trim ethoprim 1 mg/mL eye drops INSTILL 1 DROP IN EACH EYE FOUR TIMES DAILY WHILE AWAKE FOR 7 DAYS. DO NOT EXCEED 6 DOSES IN 24 HOURS 10/19 completed Not Available Not Available Not Available levothyro xine 150 mcg tablet TAKE 1 TABLET BY MOUTH EVERY MORNING active Not Available Not Available No t Available Synthroid 75 mcg tablet TK 1 T PO QD IN THE MORNING FOR 30 DAYS 06/17 completed Not Available Not Available Not Available sertralin e 25 mg tablet TAKE 1 TABLET BY MOUTH DAILY 05/02 completed Not Available Not Available Not Available aspirin 81 mg chewable tablet 02/10 completed Not Available Not Available Not Available lorazepam 1 mg tablet 01/28 completed Not Available Not Available Not Available Bupropion (Smoking Deter) 150 mg tablet,ex tended release 10/19 completed Not Available Not Available Not Available ondansetr on 4 mg disintegr ating tablet Place 1 tablet every 6-8 hours by translin gual route as needed. 10/06 completed Not Available Not Available Not Available cefdinir 300 mg capsule TAKE 1 CAPSULE BY MOUTH EVERY 12 HOURS 10/19 completed Not Available Not Available Not Available fluticaso ne propionat e 50 mcg/actua tion nasal spray,becky pension SHAKE LIQUID AND USE 1 SPRAY IN EACH NOSTRIL EVERY 12 HOURS active Not Available Not Available No t Available amoxicill in 875 mg-potass ium clavulana te 125 mg tablet TAKE 1 TABLET BY MOUTH EVERY 12 HOURS 06/19 completed Not Available Not Available Not Available azithromy liana 500 mg tablet TAKE 1 TABLET BY MOUTH DAILY FOR 5 DAYS 10/19 completed Not Available Not Available Not Available escitalop monika 10 mg tablet Take 1 tablet every day by oral route. 10/06 completed Not Available Not Available Not Available Sprintec (28) 0.25 mg-0.035 mg tablet take 1 tablet by oral route every day 08/27 completed Prescrib boni Bishop e: No Locat ion: Jackie butler [facility] odify By: gabbi mcgee DateTime : 12/18/19 03:29:45 PM Not Available Not Available Not Available bupropion HCl XL 150 mg 24 hr tablet, extended release TAKE 1 TABLET BY MOUTH EVERY MORNING active Not Available Not Available No t Available Lexapro 5 mg tablet take 1 tablet by oral route every day 01/25 completed Prescrib ed Elsewher e: Yes Loca tion: Charley carrie [facility] odify By: pola feng DateTime : 04/08/19 16 03:30:00 PM Not Available Not Available Not Available nitrofura ntoin monohydra te/macroc rystals 100 mg capsule TAKE 1 CAPSULE BY MOUTH EVERY 12 HOURS WITH FOOD FOR 5 DAYS. 05/02 completed Not Available Not Available Not Available Flovent HFA 110 mcg/actua tion aerosol inhaler INHALE 1 PUFF BY MOUTH TWICE DAILY DIRECTED active Not Available Not Available No t Available Synthroid 06/17 completed Not Available Not Available Not Available 10/06 completed Not Available Not Available Not Available Seasoniqu e 0.15 mg-30 mcg (84)/10 mcg(7) tablets,3 month dose pack take 1 tablet by oral route every day 09/09 completed Prescrib ed Elsewher e: No [facility] By: gabbi mcgee DateTime : 06/12/19 18 08:33:19 AM Not Available Not Available Not Available FeroSul 325 mg (65 mg iron) tablet TAKE 1 TABLET ORALLY DAILY 01/28 completed Not Available Not Available Not Available Tirosint 50 mcg capsule take 1 capsule by oral route every day 01/25 completed Prescrib ed Elsewher e: Yes Loca tion: [facility] odify By: pola feng DateTime : 04/08/19 16 03:30:00 PM Not Available Not Available Not Available Tirosint 125 mcg capsule TK 1 C PO D 06/17 completed Not Available Not Available Not Available [facility] Cetirizin [facility] 10/19 completed Not Available Not Available Not Available Slynd 4 mg (28) tablet Take 1 tablet every day by oral route. 10/19 completed Not Available Not Available Not Available [facility] ODT 75 mg disintegr ating tablet active Not Available Not Available Not Available [facility] ODT 05/02 completed Not Available Not Available Not Available Vitals Date Recorded Body height Body mass index (BMI) Body weight Systolic blood pressure Diastolic blood pressure Provider Name and Address Organization Details Last Updated DateTime 01/29/2024 167.64 cm 31.3 kg/m2 27416.92 g 131 mm[Hg] 85 mm[Hg] Gwen Danielle [facility] 4 16:29:07 Date Recorded Body height Body mass index (BMI) Body weight Systolic blood pressure Diastolic blood pressure Provider Name and Address Organization Details Last Updated DateTime 05/02/2024 167.64 cm 30 kg/m2 74192.18 g 125 mm[Hg] 83 mm[Hg] Gwen Danielle [facility] 5 09:44:18 Date Recorded Body height Body mass index (BMI) Body weight Systolic blood pressure Diastolic blood pressure Provider Name and Address Organization Details Last Updated DateTime 06/19/2024 167.64 cm 30.5 kg/m2 37962.96 g 127 mm[Hg] 65 mm[Hg] Krystyna Hudson [facility] 5 16:27:42 Social History Question Answer Notes LastModified by Organizat ion Details LastModified Time Tobacco Smoking Status Never Smoker Gwen Danielle [facility] 10/19/2022 16:53:54 Do You Have An Advance Directive? No Information not available 06/17/2020 What Is Your Level Of Alcohol Consumption? Occasional [email or web address] Information not available 10/21/2019 Are You Blind Or Do You Have Difficulty Seeing? No [email or web address] Information not available 06/17/2020 What Is Your Level Of Caffeine Consumption? None [email or web address] Information not available 10/19/2022 How Much Tobacco Do You Chew? None [email or web address] Information not available 06/17/2020 In The 14 Days Before Symptom Onset, Have You Had Close Contact With A Laboratory-confir med COVID-19 While That Case Was Ill? No [email or web address] Information not available 06/17/2020 In The 14 Days Before Symptom Onset, Have You Had Close Contact With A Person Who Is Under Investigation For COVID-19 While That Person Was Ill? No [email or web address] Information not available 06/17/2020 Have You Been To An Area Known To Be High Risk For COVID-19? No [email or web address] Information not available 10/19/2022 Are You Deaf Or Do You Have Serious Difficulty Hearing? No [email or web address] Information not available 06/17/2020 What Type Of Diet Are You Following? REGULAR [email or web address] Information not available 06/17/2020 Do You Or Have You Ever Used E-cigarettes Or Vape? Never Used Electronic Cigarettes [email or web address] Information not available 10/19/2022 What Is The Highest Grade Or Level Of School You Have Completed Or The Highest Degree You Have Received? 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 Yes [email or web address] Information not available 06/17/2020 What Was The Date Of Your Most Recent Tobacco Screening? 05/02/2024 [email or web address] Information not available 05/02/2024 Have You Ever Been Counseled For Unhealthy Alcohol Use? No [email or web address] Information not available 10/19/2022 Do You Use Protection During Sex? No [email or web address] Information not available 06/17/2020 Do You Use Your Seat Belt Or Car Seat Routinely? Yes [email or web address] Information not available 06/17/2020 Do You Have Smoke And Carbon Monoxide Detectors In Your Home? Yes [email or web address] Information not available 06/17/2020 Do You Or Have You Ever Used Smokeless Tobacco? Never Used Smokeless Tobacco Information not available 10/19/2022 How Much Tobacco Do You Smoke? No [email or web address] Information not available 10/21/2019 Do You Feel Stressed (tense, Restless, Nervous, Or Anxious, Or Unable To Sleep At Night)? [id number] Information not available 10/19/2022 Do You Use Any Illicit Or Recreational Drugs? No [email or web address] Information not available 06/17/2020 Do You Use Sunscreen Routinely? Yes [email or web address] Information not available 06/17/2020 Has Tobacco Cessation Counseling Been Provided? No [email or web address] Information not available 10/19/2022 Have You Used IV Drugs? No [email or web address] Information not available 06/17/2020 Do You Or Have You Ever Used Any Other Forms Of Tobacco Or Nicotine? No [email or web address] Information not available 10/19/2022 Sex: Unknown Functional Status Question Answer Note LastModified by Organizat ion Details LastModified Time Do you have difficulty walking or climbing stairs? No [email or web address] Information not available 10/19/2022 Are you able to walk? YESWOREST [email or web address] Information not available 06/17/2020 Are you able to care for yourself? Yes [email or web address] Information not available 10/19/2022 Do you have difficulty dressing or bathing? No [email or web address] Information not available 10/19/2022 What is your exercise level? Occasional Information not available 10/21/2019 Mental Status None recorded. Family History Relationship Description Onset Age of this Age Resolved Age Notes LastModified by Organization Details LastModified Time Paternal Grandmother Diabetes mellitus [email or web address] Not available 10/20 22:35:03 Paternal Grandmother Congenital heart disease [email or web address] Not available 2022 16:43:06 Paternal Grandmother Heart disease [email or web address] Not available 10/20 22:36:51 Maternal Uncle Diabetes mellitus [email or web address] Not available 10/20 22:35:03 Mother Asthma [email or web address] Not available 10/21/2019 22:35:15 Mother Disorder of thyroid gland [email or web address] Not available 10/20 22:35:48 Paternal Uncle Disorder of thyroid gland [email or web address] Not available 10/20 22:35:48 Paternal Grandfather Malignant neoplasm of lung [email or web address] Not available 10/20 22:36:04 Paternal Grandfather Heart disease [email or web address] Not available 06/17 15:52:00 Sister Asthma [email or web address] Not available 10/21/2019 22:37:00 Sister Genetic disease Not available 2022 16:43:06 Maternal Grandfather Heart disease [email or web address] Not available 06/17 15:52:00 Medical History Condition Response Allergies (Food, seasonal, environmental ) Y Other Y Drug/Latex Allergies/Reactions N Blood Transfusion N Breast Cancer N Dermatologic Disorders N Lung Disease N Defects or Inherited Disease N Breast Problem N Gestational Diabetes N Hematologic disorders N Anesthesia Complications N History of STI Y Deep Vein Thrombosis N Polycystic ovary syndrome N Anxiety Disorder Y Autoimmune disease Y Arthritis N Polyps N Infertility N Acid Reflux (GERD) Y History of abnormal pap Y Cancer N Varicosities N Stroke N Neurologic/Epilepsy N Endometriosis N High Cholesterol N Fibromyalgia N Headaches Y Kidney Disease N Heart Problems N Thyroid Problems Y Kidney or Bladder Problems N GI Problems N Eating Disorder N Anemia Y Art (IVF or FET) N Psychiatric Illness N Ovarian Cancer N Diabetes N Pulmonary (TB, Asthma) N Hepatitis/Liver Disease N No Past Medical History N Eczema N Urinary Tract Infection N Abuse/Domestic Violence N Asthma Y Trauma/Violence N Depression/ depression Y Heart Disease N Pre-Eclampsia N Hypertension N Osteoporosis N Thrombophilias N Gynecological History Statement/Question Response Abnormal Pap Yes Date of Last Mammogram Date of LMP 04/09/2024 On BCP's at Conception? N STIs/STDs Yes Was last menstrual period normal Y HPV Vaccine N Colposcopy 10/03/2017 Duration of Flow (days) 6 Current Control Method Withdrawal Age at First Child 18 Date of Last Colonoscopy Frequency of Cycle (Q days) 28 Sexually Active? Y Date of DEXA bone scan Age of first menstrual cycle 8 Date of Last Pap Smear 01/29/2024 Sexual Problems? Y LMP Approximate N 03/18/2012 Obstetrics History GPAL:G 4 P 3 0 1 3 Type Value Full Term 3 Spontaneous 1 Living 3 Total 4 Past Encounters Encounter ID Performer Location Encounter Start Date Encounter Closed Date Diagnosis/Indication Diagnosis SNOMED-CT Code Diagnosis ICD10 Code Diagnosis Note [id number] Natalie Morris CNM [facility] [address] [address] 10/19/2019 11:43:08 10/19/2019 12:13:23 Discharge from nipple 16917305 N64.52 await lab results and culture, f/u wwe discussed slynd as bc option if desires, [employer] samples [id number] Natalie Morris CNM [facility] [address],[place] [address] 06/17/2020 14:49:17 06/17/2020 16:06:42 Amenorrhea 25144731 N91.2 Gynecologi c examination 45843736 Z01.419 [id number] Shireen Nguyễn [facility] [address],[place] [address] 06/17/2020 14:45:39 06/18/2020 23:53:24 [id number] [facility] [address],[place] [address] 07/08/2020 09:20:14 07/08/2020 09:59:44 screening 002621693 Z36.82 [id number] Marvin Strauss MD [facility] [address],[place] [address] 07/08/2020 09:20:58 07/08/2020 10:57:22 Routine care 671929566 Z34.91 [id number] [facility] [address],[place] [address] 08/05/2020 11:35:15 08/05/2020 14:04:33 Routine care 978240403 Z34.92 [id number] Marvin Strauss MD [facility] [address],[place] [address] 09/02/2020 11:47:14 09/03/2020 09:51:26 Cholestasis of 432164987 O26.619 [id number] Marvin Strauss MD [facility] [address],[place] [address] 09/26/2020 17:24:59 09/27/2020 14:52:26 Cholestasis of 988551482 O26.619 [id number] Natalie Morris CNM [facility] [address],[place] [address] 10/28/2020 13:51:27 10/28/2020 15:59:52 Routine care 797676923 Z34.92 [id number] [facility] [address],[place] [address] 10/28/2020 13:50:34 10/28/2020 15:33:29 Cholestasis of 987279473 O26.619 Z3A.27 [id number] Marvin Strauss MD [facility] [address],[place] [address] 11/10/2020 12:38:09 11/10/2020 14:29:25 Routine care 798527069 Z34.91 [id number] [facility] [address],[place] [address] 11/10/2020 13:47:14 11/10/2020 14:27:50 Reduced movement 987678450 O36.8199 [id number] Natalie Morris [facility] [address],[place] [address] 11/25/2020 16:20:37 11/28/2020 20:33:23 Routine care 808055417 Z34.92 [id number] [facility] [address] [address] 11/29/2020 15:07:11 11/29/2020 19:23:20 Cholestasis of 190882016 O26.619 Z3A.32 [id number] [facility] [address],[place] [address] 11/29/2020 15:07:39 11/29/2020 16:31:25 Cholestasis of 886826198 O26.619 Z3A.32 [id number] Marvin Strauss MD [facility] [address],[place] [address] 11/29/2020 15:08:07 11/29/2020 17:18:40 Routine care 920038247 Z34.91 [id number] [facility] [address],[place] [address] 12/06/2020 16:46:08 12/06/2020 17:25:43 Cholestasis of 470692935 O26.619 Z3A.32 [id number] Natalie Morris [facility] [address],[place] [address] 12/09/2020 15:45:30 12/09/2020 16:58:22 Routine care 256298196 Z34.92 [id number] [facility] [address],[place] [address] 12/09/2020 15:44:46 12/09/2020 16:34:16 Cholestasis of 869037421 O26.619 Z3A.32 [id number] [facility] [address],[place] [address] 12/13/2020 16:39:50 12/13/2020 17:49:27 Cholestasis of 910658422 O26.619 Z3A.32 [id number] [facility] [address],[place] [address] 12/16/2020 14:53:35 12/16/2020 15:49:06 Cholestasis of 461626814 O26.619 Z3A.32 [id number] Marvin Strauss MD [facility] [address],[place] [address] 12/16/2020 14:56:37 12/16/2020 16:50:18 Routine care 617275841 Z34.91 [id number] Natalie Morris [facility] [address],[place] [address] 12/23/2020 14:52:21 12/23/2020 16:36:20 Routine care 106896895 Z34.92 [id number] [facility] [address] [place] [address] 12/20/2020 16:47:51 12/21/2020 16:10:53 Cholestasis of 647028814 O26.619 Z3A.32 [id number] [facility] [address],[place] [address] 12/23/2020 14:51:18 12/23/2020 15:47:27 Cholestasis of 941694318 O26.619 Z3A.32 [id number] Adri Pinedo [facility] [address],[place] [address] 12/27/2020 16:40:13 12/27/2020 17:51:22 Cholestasis of 903658283 O26.619 Z3A.32 [id number] [facility] [address],[place] [address] 12/30/2020 14:46:09 12/31/2020 11:42:23 Routine care 516444327 Z34.92 [id number] [facility] [address],[place] [address] 12/30/2020 14:45:34 12/30/2020 15:53:51 Cholestasis of 842719770 O26.619 Z3A.32 [id number] [facility] [address],[place] [address] 01/03/2021 16:41:45 01/03/2021 18:04:41 Cholestasis of 016058265 O26.619 Z3A.32 [id number] Marvin Strauss MD [facility] [address],[place] [address] 01/06/2021 14:55:58 01/06/2021 21:11:15 [id number] Adri Pinedo [facility] [address],[place] [address] 01/06/2021 14:53:27 01/06/2021 15:39:54 Cholestasis of 954747911 O26.619 Z3A.32 [id number] Kristen Holland [facility] [address],[place] [address] 01/06/2021 14:54:09 01/06/2021 15:59:46 Cholestasis of 404253083 O26.619 Z3A.37 [id number] Shirley Morley [facility] [address],[place] [address] 01/10/2021 13:45:47 01/10/2021 16:57:53 Routine care 127188526 Z34.93 [id number] Dallin Vargas [facility] [address],[place] [address] 01/10/2021 13:51:55 01/10/2021 15:11:27 Cholestasis of 189791575 O26.619 Z3A.37 [id number] Natalie Morris [facility] [address],[place] [address] 02/10/2021 14:37:29 02/10/2021 15:49:52 care 983215663 Z39.2 Anxiety 88661381 F41.9 [id number] Natalie Morris [facility] [address] [place] [address] 10/06/2021 11:42:58 10/09/2021 16:32:23 Hypothyroidism 97063147 E03.9 Gynecologi c examination 71973748 Z01.419 Z11.51 [id number] Natalie Morris [facility] [address] [place] [address] 10/19/2022 16:39:24 10/19/2022 17:26:10 Gynecologic examination 07660063 Z01.419 Z11.51 Dysmenorrhea 570673561 N 94.[address] strauss, pt desires hysterecto my [id number] [facility] [address] [place] [address] 11/22/2022 13:49:36 11/22/2022 15:07:10 Dysmenorrhea 512798056 N94.6 [id number] Natalie Morris [facility] [address] [place] [address] 01/29/2024 16:06:45 01/29/2024 16:49:46 Menorrhagia 629870431 N92.0 Dysmenorrhea 384093731 N 94.[address] strauss, pt desires hysterecto mywill order [id number] Nishi Sanchez [facility] [address] [address] 04/16/2024 09:16:37 04/16/2024 09:44:44 Menorrhagia 877695072 N92.0 [id number] Marvin Strauss MD [facility] [address] [address] 05/02/2024 09:20:28 05/04/2024 10:35:58 Menorrhagia 161693059 N92.0 This patient is a 34-year-ol d female presents for heavy vaginal bleeding. She has longstandi ng very heavy bleeding. Her menses are regular. However, they require double protection . Patient has accidents, getting blood on her bedding and clothing. Is affected work. She changes a pad or tampon every hour. She leaks blood around the pad and tampon. This bleeding has a profound impact on her quality of life and her activities of daily living.we discussed treatment options in detail including all of her medical treatment options. She has failed multiple treatment options. She has failed multiple forms of control including the IUD and combined oral contracept laureen pills. We agreed to proceed with definitive surgical treatment. She will have robotic assisted hysterecto my with bilateral salpingect juanito. The patient understand s the procedure. The procedure was described to the patient in great detail. the patient also understand s the risks. The risks were also explained in detail. She understand s that injuries May occur during surgery. She understand s these injuries can result in hospitaliz ation, more surgery, and severe illness. She understand s there is risk of hemorrhage and infection. Dyspareunia 93547095 N94 .10 Pain in pelvis 78975629 R10.2 [id number] Marvin Strauss MD [facility] [address] [address] 06/19/2024 16:08:16 06/20/2024 11:32:16 Menorrhagia 099340817 N92.0 This patient is a 34-year-ol d female with severe menorrhagi a. We have agreed to perform robotic assisted hysterecto my with bilateral salpingect juanito. She understand s risks, benefits, and alternativ es. She has completed informed consent process is ready to proceed. Health Concerns Section Related Observation LastModified by Organization Detai ls LastModified Time None Recorded Concern Status LastModified by Organization Details LastModified Time None Recorded Advance Directives Directive N: Payers Encounter Date Sequence Insurance Name Policy Number Policy Bustillos Covered Member ID Bustillos Member ID Guarantor Name 11/22/2022 1 [facility] (MEDICAID HMO) [id number] Juan Kaur [id number] Juan Kaur 01/29/2024 1 [employer] [id number] Juan Kaur [id number] Jaun Kaur 04/16/2024 1 [employer] [id number] Juan Kaur [id number] Juan Kaur 05/02/2024 1 [employer] [id number] Juan Kaur [id number] Juan Kaur 06/19/2024 1 UMR [id number] Juan Kaur [id number] Juan Kaur Notes Date Note Type Note Provider Name and Address Organization Details Recorded Time 01/29/2024 text/html Annual GYNReport ed bypatient.Menstrual cycle:Severe dysmenorrhea;Menorr hagia; has tried ocp's, iuds with no success Breast:No breast pain; No breast lump; No nipple discharge Sexual complaints:No sexual complaints; No pain during intercourse; Normal libido Menopausal Symptoms:No menopausal symptoms; Normal vaginal lubrication Psychological symptoms:No depression; No anxiety; No PMDD Preventive measures:Encourage self breast examination; Encourage regular exercise; Encourage no tobacco use; Followed with yearly pap smearsNotes:pt interested in hysterectomy Natalie Morris CNM [address], [place], [address], [facility] 01/29/2024 16:49:22 05/02/2024 text/html This patient is a 34-year-old female presents for heavy vaginal bleeding. She has longstanding very heavy bleeding. Her menses are regular. However, they require double protection. Patient has accidents, getting blood on her bedding and clothing. Is affected work. She changes a pad or tampon every hour. She leaks blood around the pad and tampon. This bleeding has a profound impact on her quality of life and her activities of daily living.we discussed treatment options in detail including all of her medical treatment options. She has failed multiple treatment options. She has failed multiple forms of control including the IUD and combined oral contraceptive pills. We agreed to proceed with definitive surgical treatment. She will have robotic assisted hysterectomy with bilateral salpingectomy. The patient understands the procedure. The procedure was described to the patient in great detail. the patient also understands the risks. The risks were also explained in detail. She understands that injuries May occur during surgery. She understands these injuries can result in hospitalization, more surgery, and severe illness. She understands there is risk of hemorrhage and infection. Marvin Strauss MD [address], [place], [address], [facility] 05/02/2024 12:57:38 06/19/2024 text/html This patient is a 34-year-old female with severe menorrhagia. We have agreed to perform robotic assisted hysterectomy with bilateral salpingectomy. The patient understands the procedure. The procedure was described to the patient in great detail. the patient also understands the risks. The risks were also explained in detail. She understands that injuries May occur during surgery. She understands these injuries can result in hospitalization, more surgery, and severe illness. She understands there is risk of hemorrhage and infection. Marvin Strauss MD [address], [place], [address], [facility] 06/19/2024 17:42:34 OBGyn Episode Ob Episode Information Episode Created Date Number of Fetuses Patient Bloodtype Patient rh Status Prepregnancy Weight lbs Domestic Partner Domestic Partner Phone Father Name Parts Remover Status 10/21/19 20 1 CLOSED Fetus Data First Name Last Name Admitted to NICU Weight (g) Sex Living Outcome Pediatric Complications Fetus ID Race Codes Race Delivery Type 4065 Sylvester Calculation Initial Sylvester Date Initial Exam Date Initial Exam Provider Initial Ultrasound Date Last Menstrual Period Date Ultra Sound Weeks Gestation 0 Eighteen To Twenty Week Sylvester Update Ultra Sound Date Fundal Height At Umbil Quickening Date Ultra Sound Latest Weeks Gestation Final Sylvester Confirmed By Final Sylvester Confirmed Date Final Sylvester Date Ultra Sound Latest Days Gestation 0 0 Menstrual History Last Menstrual Date Menses Monthly On Bcp Conception Prior Menses Frequency Hcg Plus Date Menarche Onset Age Delivery Information Delivery Date Delivery Type Labor Anesthesia Weeks Gestation Incision Type Labor Labor Length Hrs Delivered By Post Complications Tubal Sterilization Discharge Date Comments 9 11/2018 miscarria ge Discharge Information Feeding Method Contraceptive Method Maternal HG B and HCT Levels Ob Episode Information Episode Created Date Number of Fetuses Patient Bloodtype Patient rh Status Prepregnancy Weight lbs Domestic Partner Domestic Partner Phone Father Name Parts Remover Status 10/21/19 20 1 CLOSED Fetus Data First Name Last Name Admitted to NICU Weight (g) Sex Living Outcome Pediatric Complications Fetus ID Race Codes Race Delivery Type 3061.74 6 F Full Term 4067 Vaginal Delivery Sylvester Calculation Initial Sylvester Date Initial Exam Date Initial Exam Provider Initial Ultrasound Date Last Menstrual Period Date Ultra Sound Weeks Gestation 0 Eighteen To Twenty Week Sylvester Update Ultra Sound Date Fundal Height At Umbil Quickening Date Ultra Sound Latest Weeks Gestation Final Sylvester Confirmed By Final Sylvester Confirmed Date Final Sylvester Date Ultra Sound Latest Days Gestation 0 0 Menstrual History Last Menstrual Date Menses Monthly On Bcp Conception Prior Menses Frequency Hcg Plus Date Menarche Onset Age Delivery Information Delivery Date Delivery Type Labor Anesthesia Weeks Gestation Incision Type Labor Labor Length Hrs Delivered By Post Complications Tubal Sterilization Discharge Date Comments 7 39 true Dorita +GBS Discharge Information Feeding Method Contraceptive Method Maternal HG B and HCT Levels Ob Episode Information Episode Created Date Number of Fetuses Patient Bloodtype Patient rh Status Prepregnancy Weight lbs Domestic Partner Domestic Partner Phone Father Name Parts Remover Status 10/21/19 20 1 CLOSED Fetus Data First Name Last Name Admitted to NICU Weight (g) Sex Living Outcome Pediatric Complications Fetus ID Race Codes Race Delivery Type 3288.54 2 F Full Term 4066 Vaginal Delivery Sylvester Calculation Initial Sylvester Date Initial Exam Date Initial Exam Provider Initial Ultrasound Date Last Menstrual Period Date Ultra Sound Weeks Gestation 0 Eighteen To Twenty Week Sylvester Update Ultra Sound Date Fundal Height At Umbil Quickening Date Ultra Sound Latest Weeks Gestation Final Sylvester Confirmed By Final Sylvester Confirmed Date Final Sylvester Date Ultra Sound Latest Days Gestation 0 0 Menstrual History Last Menstrual Date Menses Monthly On Bcp Conception Prior Menses Frequency Hcg Plus Date Menarche Onset Age Delivery Information Delivery Date Delivery Type Labor Anesthesia Weeks Gestation Incision Type Labor Labor Length Hrs Delivered By Post Complications Tubal Sterilization Discharge Date Comments 9 39 Kelsi placenta previa Discharge Information Feeding Method Contraceptive Method Maternal HG B and HCT Levels Ob Episode Information Episode Created Date Number of Fetuses Patient Bloodtype Patient rh Status Prepregnancy Weight lbs Domestic Partner Domestic Partner Phone Father Name Parts Remover Status 07/09/19 21 1 O Positive 200 CLOSED Fetus Data First Name Last Name Admitted to NICU Weight (g) Sex Living Outcome Pediatric Complications Fetus ID Race Codes Race Delivery Type 3061.74 6 M true Full Term 9849 Vaginal Delivery Problems Problem Notes borderline high bile acids - 8:15AM U/S only [facility] office - THIS WAS CANCELED, pt requested to just do u/s here 11/30 Pt request SP for delivery Problem Name Start Date End Date Resolution Snomed Code Not e Hypothyroidism [id number] Incre ased to 137mcg 11/04- rpt 1 month 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 Cholestasis of [id number] increase ursodi ol & vit d, testing at 32 weeks per [facility] - del between 38-39wks Past history of gestational hypertension [id number] ASA Sylvester Calculation Initial Sylvester Date Initial Exam Date Initial Exam Provider Initial Ultrasound Date Last Menstrual Period Date Ultra Sound Weeks Gestation 01/21/2021 07/08/2020 06/17/2020 04/16/2020 8 Eighteen To Twenty Week Sylvester Update Ultra Sound Date Fundal Height At Umbil Quickening Date Ultra Sound Latest Weeks Gestation Final Sylvester Confirmed By Final Sylvester Confirmed Date Final Sylvester Date Ultra Sound Latest Days Gestation 0 [email or web address] 07/08/2020 01/22/20 21 0 Pre-marlen Flowsheet Flowsheet Date 07/08/2020 Flanagan Score Blood Edema Fundus Height Fundus Units Glucose Ketones Leukocytes Nitrite Labor Signs Protein Cervic Dilation Cervic Effacement Cervic Station 12 Type Weight in lbs Pre/Post Dialysis Refused Weight 199.005175184950 BP Diastolic BP Location Tested BP Systolic BP Type 85 R arm 136 sitting Fetus Heart Rate Present A 153 Fetus Movement Comments This patient is a 28-year-ol d 4 para 2011 who presents for initial care. She has a sister with Nader syndrome. The patient believes that she has a 50% chance of having offspring Nader syndrome, it is not inherited trait, rather a random event. 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 For . It is associated with cardiac malformations. To have MFM consult at 20 weeks. She has hypothyroidism. Will check her thyroid today. 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 Otherwise, to begin routine. care Flowsheet Date 08/05/2020 Flanagan Score Blood Edema Fundus Height Fundus Units Glucose Ketones Leukocytes Nitrite Labor Signs Protein Cervic Dilation Cervic Effacement Cervic Station trace Type Weight in lbs Pre/Post Dialysis Refused Weight 198.665613046710 BP Diastolic BP Location Tested BP Systolic BP Type 83 R arm 124 sitting Fetus Heart Rate Present A 156 Fetus Movement A No Comments stress at home declines coun seling or meds, anatomy at [facility] in 4 weeks, not feeling well will order extra labs, precautions reviewed, Flowsheet Date 09/02/2020 Flanagan Score Blood Edema Fundus Height Fundus Units Glucose Ketones Leukocytes Nitrite Labor Signs Protein Cervic Dilation Cervic Effacement Cervic Station trace Type Weight in lbs Pre/Post Dialysis Refused Weight 198.049030182584 BP Diastolic BP Location Tested BP Systolic BP Type 79 R arm 129 sitting Fetus Heart Rate Present Fetus Movement A Yes Comments patient with elevated bile a cids and severely symptomatic. We agreed to start Ursodiol. We are trying to obtain consult with MFM. We discussed cholestasis of today in some detail. We discussed the risks. We will increase medication if ineffective at this dose. Flowsheet Date 09/26/2020 Flanagan Score Blood Edema Fundus Height Fundus Units Glucose Ketones Leukocytes Nitrite Labor Signs Protein Cervic Dilation Cervic Effacement Cervic Station 26 trace Type Weight in lbs Pre/Post Dialysis Refused Weight 201.532078683913 BP Diastolic BP Location Tested BP Systolic BP Type 77 R arm 129 sitting Fetus Heart Rate Present A 145 Fetus Movement A Yes Comments mildly elevated bile acids, was seen by MFM, they are not too worried, made it optional to repeat bile acids, We agreed to repeat in about 2 weeks. Patient was started on baby aspirin by MFM Flowsheet Date 10/28/2020 Flanagan Score Blood Edema Fundus Height Fundus Units Glucose Ketones Leukocytes Nitrite Labor Signs Protein Cervic Dilation Cervic Effacement Cervic Station Type Weight in lbs Pre/Post Dialysis Refused BP Diastolic BP Location Tested BP Systolic BP Type Fetus Heart Rate Present Fetus Movement Comments Flowsheet Date 10/28/2020 Flanagan Score Blood Edema Fundus Height Fundus Units Glucose Ketones Leukocytes Nitrite Labor Signs Protein Cervic Dilation Cervic Effacement Cervic Station neg none trace Type Weight in lbs Pre/Post Dialysis Refused Weight 202.392566499994 BP Diastolic BP Location Tested BP Systolic BP Type 80 123 Fetus Heart Rate Present Fetus Movement A Yes Comments patient states that having c ramping and BH contractions. reviewed PTL precautions efw 53%, plan testing Flowsheet Date 11/10/2020 Flanagan Score Blood Edema Fundus Height Fundus Units Glucose Ketones Leukocytes Nitrite Labor Signs Protein Cervic Dilation Cervic Effacement Cervic Station Type Weight in lbs Pre/Post Dialysis Refused BP Diastolic BP Location Tested BP Systolic BP Type Fetus Heart Rate Present Fetus Movement Comments Flowsheet Date 11/10/2020 Flanagan Score Blood Edema Fundus Height Fundus Units Glucose Ketones Leukocytes Nitrite Labor Signs Protein Cervic Dilation Cervic Effacement Cervic Station 32 trace Type Weight in lbs Pre/Post Dialysis Refused Weight 202.299163930147 BP Diastolic BP Location Tested BP Systolic BP Type 83 R arm 126 sitting Fetus Heart Rate Present A 145 Fetus Movement Comments patient reports decreased fe balbina movement. to get NST. Cholestasis of . Last bile acid was 11. Flowsheet Date 11/25/2020 Flanagan Score Blood Edema Fundus Height Fundus Units Glucose Ketones Leukocytes Nitrite Labor Signs Protein Cervic Dilation Cervic Effacement Cervic Station 31 wks trace Type Weight in lbs Pre/Post Dialysis Refused Weight 203.87449998784 BP Diastolic BP Location Tested BP Systolic BP Type 84 132 Fetus Heart Rate Present A 150 Fetus Movement A Yes Comments doing well, contractions mor e at work, discussed taking time off, pt to monitor over weekend, precautions reviewed, Flowsheet Date 11/29/2020 Flanagan Score Blood Edema Fundus Height Fundus Units Glucose Ketones Leukocytes Nitrite Labor Signs Protein Cervic Dilation Cervic Effacement Cervic Station Type Weight in lbs Pre/Post Dialysis Refused BP Diastolic BP Location Tested BP Systolic BP Type Fetus Heart Rate Present Fetus Movement Comments Flowsheet Date 11/29/2020 Flnaagan Score Blood Edema Fundus Height Fundus Units Glucose Ketones Leukocytes Nitrite Labor Signs Protein Cervic Dilation Cervic Effacement Cervic Station Type Weight in lbs Pre/Post Dialysis Refused BP Diastolic BP Location Tested BP Systolic BP Type Fetus Heart Rate Present Fetus Movement Comments Flowsheet Date 11/29/2020 Flanagan Score Blood Edema Fundus Height Fundus Units Glucose Ketones Leukocytes Nitrite Labor Signs Protein Cervic Dilation Cervic Effacement Cervic Station trace Type Weight in lbs Pre/Post Dialysis Refused Weight 204.269177301185 BP Diastolic BP Location Tested BP Systolic BP Type 87 R arm 138 sitting 82 R arm 138 sitting Fetus Heart Rate Present Fetus Movement A Yes Comments stable blood pressures, willi ent has noted some elevated blood pressures at her work. Remains mildly symptomatic from cholestasis. Recent growth ultrasound was normal. Reactive NST Flowsheet Date 12/06/2020 Flanagan Score Blood Edema Fundus Height Fundus Units Glucose Ketones Leukocytes Nitrite Labor Signs Protein Cervic Dilation Cervic Effacement Cervic Station Type Weight in lbs Pre/Post Dialysis Refused BP Diastolic BP Location Tested BP Systolic BP Type 81 R arm 131 sitting Fetus Heart Rate Present Fetus Movement Comments Flowsheet Date 12/09/2020 Flanagan Score Blood Edema Fundus Height Fundus Units Glucose Ketones Leukocytes Nitrite Labor Signs Protein Cervic Dilation Cervic Effacement Cervic Station Type Weight in lbs Pre/Post Dialysis Refused BP Diastolic BP Location Tested BP Systolic BP Type Fetus Heart Rate Present Fetus Movement Comments Flowsheet Date 12/09/2020 Flanagan Score Blood Edema Fundus Height Fundus Units Glucose Ketones Leukocytes Nitrite Labor Signs Protein Cervic Dilation Cervic Effacement Cervic Station neg none trace Type Weight in lbs Pre/Post Dialysis Refused Weight 202.778751599495 BP Diastolic BP Location Tested BP Systolic BP Type 83 126 Fetus Heart Rate Present Fetus Movement A Yes Comments patient is having some contr actions, discharge and nausea. MFM note for mild cholestasis, delivery between 38-39 weeks, MIL scheduled 01/11/21, NST R f/u one week Flowsheet Date 12/13/2020 Flanagan Score Blood Edema Fundus Height Fundus Units Glucose Ketones Leukocytes Nitrite Labor Signs Protein Cervic Dilation Cervic Effacement Cervic Station Type Weight in lbs Pre/Post Dialysis Refused BP Diastolic BP Location Tested BP Systolic BP Type 82 R arm 115 sitting Fetus Heart Rate Present Fetus Movement Comments Flowsheet Date 12/16/2020 Flanagan Score Blood Edema Fundus Height Fundus Units Glucose Ketones Leukocytes Nitrite Labor Signs Protein Cervic Dilation Cervic Effacement Cervic Station Type Weight in lbs Pre/Post Dialysis Refused BP Diastolic BP Location Tested BP Systolic BP Type Fetus Heart Rate Present Fetus Movement Comments Flowsheet Date 12/16/2020 Flanagan Score Blood Edema Fundus Height Fundus Units Glucose Ketones Leukocytes Nitrite Labor Signs Protein Cervic Dilation Cervic Effacement Cervic Station 35 trace Type Weight in lbs Pre/Post Dialysis Refused Weight 200.175869889222 BP Diastolic BP Location Tested BP Systolic BP Type 82 132 Fetus Heart Rate Present A 145 Fetus Movement A Yes Comments Patient has elevated heart r ate with exertion. Reassuring testing today. Flowsheet Date 12/20/2020 Flanagan Score Blood Edema Fundus Height Fundus Units Glucose Ketones Leukocytes Nitrite Labor Signs Protein Cervic Dilation Cervic Effacement Cervic Station Type Weight in lbs Pre/Post Dialysis Refused BP Diastolic BP Location Tested BP Systolic BP Type 77 R arm 129 sitting Fetus Heart Rate Present Fetus Movement Comments Flowsheet Date 12/23/2020 Flanagan Score Blood Edema Fundus Height Fundus Units Glucose Ketones Leukocytes Nitrite Labor Signs Protein Cervic Dilation Cervic Effacement Cervic Station Type Weight in lbs Pre/Post Dialysis Refused BP Diastolic BP Location Tested BP Systolic BP Type Fetus Heart Rate Present Fetus Movement Comments Flowsheet Date 12/23/2020 Flanagan Score Blood Edema Fundus Height Fundus Units Glucose Ketones Leukocytes Nitrite Labor Signs Protein Cervic Dilation Cervic Effacement Cervic Station neg trace trace 1cm 50% -3 Type Weight in lbs Pre/Post Dialysis Refused Weight 203.05986293527 BP Diastolic BP Location Tested BP Systolic BP Type 82 127 Fetus Heart Rate Present Fetus Movement A Yes Comments patient is having cramping, BH contractions, discharge and nausea. per mfm deliver between 38 and 39 weeks, scheduled by RN, precautions reviewed, has preadmit tomorrow, gbs collected Flowsheet Date 12/27/2020 Flanagan Score Blood Edema Fundus Height Fundus Units Glucose Ketones Leukocytes Nitrite Labor Signs Protein Cervic Dilation Cervic Effacement Cervic Station 1cm 50% Type Weight in lbs Pre/Post Dialysis Refused Weight 203.86706475974 BP Diastolic BP Location Tested BP Systolic BP Type 85 138 Fetus Heart Rate Present Fetus Movement Comments NST only. MK, RNRegular cont ractions on NST. Cervix same as last week. Precautions given. ATD Flowsheet Date 12/30/2020 Flanagan Score Blood Edema Fundus Height Fundus Units Glucose Ketones Leukocytes Nitrite Labor Signs Protein Cervic Dilation Cervic Effacement Cervic Station Type Weight in lbs Pre/Post Dialysis Refused BP Diastolic BP Location Tested BP Systolic BP Type Fetus Heart Rate Present Fetus Movement Comments Flowsheet Date 12/30/2020 Flanagan Score Blood Edema Fundus Height Fundus Units Glucose Ketones Leukocytes Nitrite Labor Signs Protein Cervic Dilation Cervic Effacement Cervic Station neg none trace 1cm 50% Type Weight in lbs Pre/Post Dialysis Refused Weight 203.95156248000 BP Diastolic BP Location Tested BP Systolic BP Type 85 133 Fetus Heart Rate Present Fetus Movement A Yes Comments patient states that having s ome pain, contractions, discharge and nausea. reviewed contractions, precautions f/u one week, MIL scheduled Flowsheet Date 01/03/2021 Flanagan Score Blood Edema Fundus Height Fundus Units Glucose Ketones Leukocytes Nitrite Labor Signs Protein Cervic Dilation Cervic Effacement Cervic Station Type Weight in lbs Pre/Post Dialysis Refused BP Diastolic BP Location Tested BP Systolic BP Type 82 R arm 123 sitting Fetus Heart Rate Present Fetus Movement Comments Flowsheet Date 01/06/2021 Flanagan Score Blood Edema Fundus Height Fundus Units Glucose Ketones Leukocytes Nitrite Labor Signs Protein Cervic Dilation Cervic Effacement Cervic Station Type Weight in lbs Pre/Post Dialysis Refused BP Diastolic BP Location Tested BP Systolic BP Type Fetus Heart Rate Present Fetus Movement Comments Flowsheet Date 01/06/2021 Flanagan Score Blood Edema Fundus Height Fundus Units Glucose Ketones Leukocytes Nitrite Labor Signs Protein Cervic Dilation Cervic Effacement Cervic Station Type Weight in lbs Pre/Post Dialysis Refused BP Diastolic BP Location Tested BP Systolic BP Type Fetus Heart Rate Present Fetus Movement Comments Flowsheet Date 01/06/2021 Flanagan Score Blood Edema Fundus Height Fundus Units Glucose Ketones Leukocytes Nitrite Labor Signs Protein Cervic Dilation Cervic Effacement Cervic Station Type Weight in lbs Pre/Post Dialysis Refused BP Diastolic BP Location Tested BP Systolic BP Type Fetus Heart Rate Present Fetus Movement Comments Flowsheet Date 01/10/2021 Flanagan Score Blood Edema Fundus Height Fundus Units Glucose Ketones Leukocytes Nitrite Labor Signs Protein Cervic Dilation Cervic Effacement Cervic Station trace 39 1cm 40% -3 Type Weight in lbs Pre/Post Dialysis Refused Weight 201.462417144982 BP Diastolic BP Location Tested BP Systolic BP Type 81 126 Fetus Heart Rate Present Fetus Movement A Yes Comments Doing well. Induction tomorr ow. Labor precautions. Flowsheet Date 01/10/2021 Flanagan Score Blood Edema Fundus Height Fundus Units Glucose Ketones Leukocytes Nitrite Labor Signs Protein Cervic Dilation Cervic Effacement Cervic Station Type Weight in lbs Pre/Post Dialysis Refused BP Diastolic BP Location Tested BP Systolic BP Type Fetus Heart Rate Present Fetus Movement Comments Menstrual History Last Menstrual Date Menses Monthly On Bcp Conception Prior Menses Frequency Hcg Plus Date Menarche Onset Age 0204/16/2020 Genetic Screening And Infection History Question Response Note Mental Retardation/Autism false Patient's Age Will Be 35 Yea rs Or Older At Estimated Date of Delivery false Thalassemia (Trinidadian, Swiss, Mediterranean, Or Background): MCV < 80 false Neural Tube Defect (Meningom yelocele, Spina Bifida, Or Anencephaly) false Congenital Heart Defect false Down Syndrome false Terrence-Sachs (eg, Tenriism, Cajun, Uzbek-Serbian) f alse Shira Disease false Sickle Cell Disease Or Trait () false Hemophilia Or Other Blood Disorders false Muscular Dystrophy false Cystic Fibrosis false Cloud's Chorea false Intellectual Disability/Autism false If Yes, Was Person Tested For Fragile X? false Other Inherited Genetic Or Chromosomal Disorder true Sister with Nader Synd Maternal Metabolic Disorder (eg, Type 1 Diabetes, PKU) false Patient Or Baby's Father Had A Child With Defects Not Listed Above false Recurrent Loss, Or A Stillbirth false Medications (including Suppl ements, Vitamins, Herbs, OTC Drugs), Illicit/Recreational Drugs, Alcohol false If Yes, Agent(s) And Strength/Dosage false Any Other Genetic History false Live With Someone With TB Or Exposed To TB false Patient Or Partner Has History Of Genital Herpes false Rash Or Viral Illness Since Last Menstrual Perio d false History Of STD, Gonorrhea, C hlamydia, HPV, Syphilis false Other Infection History false History of HIV false History of Hepatitis false Prior GBS-infected child false Hemoglobinopathy Or Carrier false Other Structural Defect false Recent Travel History Outside of Country false Delivery Information Delivery Date Delivery Type Labor Anesthesia Weeks Gestation Incision Type Labor Labor Length Hrs Delivered By Post Complications Tubal Sterilization Discharge Date Comments 1 Induce d Regional-Ep idural 38.4 false Arturo Natalie CNDallin Cholestas is, Gbs+ Discharge Information Feeding Method Contraceptive Method Maternal HG B and HCT Levels"
--- OUTSIDE RECORDS SUMMARY | 2024-06-22 13:20 | XMS_ITS | Clinical Summary ---
Author Organization [facility] Address [address] [place] [address] Phone Care Team Providers Care Public Safety Telecommunicator Name Role Phone Provider, None Primary Care Provider Unavailabl e Allergies No known active allergies Medications levothyroxine (SYNTHROID) 88 MCG Tablet Take 88 mcg by mouth daily. Active Levonorgest-Eth Estrad 91-Day (SEASONIQUE PO) Take by mouth. 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[employer] Gender Identity Not on file Sexual Orientation Not on file Last Filed Vital Signs Vital Sign Reading Time Taken Comments Blood Pressure 109/68 05/14/2018 1:45 PM CDT Pulse 80 05/14/2018 1:45 PM CDT Temperature 36.8 C (98.3 F) 05/14/2018 11:38 AM CDT Respiratory Rate 19 05/14/2018 11:38 AM CDT Oxygen Saturation 100% 05/14/2018 1:45 PM CDT Inhaled Oxygen Concentration - - Weight 79.4 kg (175 lb) 05/14/2018 11:38 AM CDT Height 170.2 cm (5' 7 ) 05/14/2018 11:38 AM CDT Body Mass Index 27.41 05/14/2018 11:38 AM CDT Plan of Treatment Health Maintenance Due Date Last Done Comments Hepatitis C Virus (HCV) Screening 1988 TdaP Immunization 1988 Hepatitis B Immunization (1 of 3 - 19+ 3-dose series) 2007 Influenza Immunization (#1) 2023 SARS-COV-2 Immunization ( - 2023-25 season) 2023 Respiratory Syncytial Virus (RSV) Immunization (Adult) (1 - 1-dose 75+ series) 2063 Meningococcal Immunization (ACWY) Aged Out No longer eligible based on patient's age to complete this topic Pneumococcal Immunization Combined Aged Out No longer eligible based on patient's age to complete this topic Rotavirus Immunization Aged Out No lo nger eligible based on patient's age to complete this topic Care Teams Public Safety Telecommunicator Relationship Specialty Start Date End Date Provider, None [place] PCP - General 08/19/17
--- OUTSIDE RECORDS SUMMARY | 2024-06-22 13:20 | XMS_ITS | CONTINUITY OF CARE DOCUMENT ---
Author Name merced blackwood Address Unknown Organization [facility] Address [id number] [place] [address] [address] [place] [address] Phone [phone] Care Team Providers Care Field Laboratory Operator Name Role Phone Nic TENORIO, Abby Unavailable STONE DICKENS Unavailable STONE DICKENS Unavailable PROBLEMS Condition Status Date Provider Notes Family History Coronary Hear t Disease female < 65: active ? Abby Lucero MD Family History Coronary Hear t Disease male < 55: active ? Abby Lucero MD Hypothyroidism active Abby Lucero MD Abnormal electrocardiogram- Juvenile T waves active 20 13/05/21 Abby Lucero MD Hyperlipidemia active Abby Lucero MD CHEST PAIN active Abby Lucero MD ENCOUNTERS Date Type Provider Location Encounter Diag nosis - In-person encounter Office Visit Abby Lucero MD [facility] Family History Coronary Heart Disease female < 65:Family History Coronary Heart Disease male < 55:HypothyroidismAbnormal electrocardiogram- Juvenile T wavesHyperlipidemiaCHEST PAIN VITAL SIGNS Date Observation Value Provider blood pressure, diastolic 76 mm[Hg] Cy cailin Walsh blood pressure, systolic 116 mm[Hg] Donna anthony Walsh Body Mass Index (Ratio) 27.41 kg/m2 Yuval Lucero MD blood pressure, diastolic 70 mm[Hg] Da kat Maxi blood pressure, systolic 116 mm[Hg] Dac ia Kirklin oxygen saturation, oximetry 93 % Renea Maxi respiratory rate E&M 16 /min Renea V oss pulse rate 88 /min Renea Maxi weight E&M 175 [lb_av] Renea Maxi height E&M 67 [in_i] Renea Maxi ALLERGIES No Known Drug Allergies HISTORY OF MEDICATION USE Medication Status Instructions Dates Provider Indications Com ments SPRINTEC 28 TABLET active take one daily Renea Maxi LEVOTHYROXINE SODIUM 25 MCG ORAL TABLET active take one tablet daily Renea Maxi SOCIAL HISTORY Date Observation Value Provider smoking status Never smoker Rosa grant social history reviewed E&M revi ewed - no changes required Abby Lucero MD alcohol use no Renea Maxi smoking status Never smoker Renea Maxi FAMILY HISTORY Family Member Condition Paternal Grandfather Family History Saima nary Heart Disease male < 55: Paternal Grandmother Family History Saima nary Heart Disease female < 65: Mother Family History of As thma: INSURANCE PROVIDERS Payer name Policy type / Coverage type [place] red democr[employer] ID HUMANA PPO O [id number] ADVANCE DIRECTIVES Name Date DISCUSSED - NO DECISION MADE TREATMENT PLAN Date Name Performer Cardiology New Patient Abby latham MD Cardiology New Patient Abby latham MD Cardiology New Patient Abby latham MD Cardiology New Patient Abby latham MD Date Name DLCO - 19269 FRC - 98974 FVC - 95416 X-Ray, Chest - Routi ne Stress Routine HISTORY OF PROCEDURES Procedure Date Procedure Name Provider Procedure Notes S tatus Stress EKG Doron Lewis MD complete d
--- OUTSIDE RECORDS SUMMARY | 2024-06-22 13:21 | XMS_ITS | Clinical Summary ---
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 Surgical History Surgery Date Site/Laterality Comments LUMBAR PUNCTURE WO INJECTION, DIAGNOSTIC 03/22/2023 N/A Medical History Medical History Date Comments Hx Other Medical Headache, migra ine Family History Medical History Relation Name Comments Diabetes type II Other Family hist ory of Diabetes -Type 2; Hypertension Other Family history of Hypertension; Thyroid disease Other Family histo ry of Thyroid disorder; Relation Name Status Comments Other Social History Tobacco Use Types Packs/Day Years [...] on file 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 Gender Identity Female 01/31/2023 11:27 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 Sexual Orientation Not on file Obstetrics History Last Filed Vital Signs Vital Sign Reading Time Taken Comments Blood Pressure 123/85 05/07/2023 11:25 AM CDT Pulse 92 05/07/2023 11:25 AM CDT Temperature 36.6 C (97.9 F) 03/22/2023 10:18 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 Respiratory Rate 16 03/22/2023 10:18 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 Oxygen Saturation 98% 03/22/2023 12:30 PM DIRECTOR IT PROJECT Inhaled Oxygen Concentration - - Weight 87.1 kg (192 lb) 05/07/2023 11:25 AM CDT Height 167.6 cm (5' 6 ) 05/07/2023 11:25 AM CDT Body Mass Index 30.99 05/07/2023 11:25 AM CDT Plan of Treatment Health Maintenance Due Date Last Done Comments Cervical Cancer Screening 1988 Depression Screening 1988 Hepatitis C Screening 1988 DTaP/Tdap/Td Vaccine (1 - Tdap) 1999 Varicella Vaccines (1 of 2 - 13+ 2-dose series) 2001 Hepatitis B Screening 2006 Regular Well Visit/Exam 18-64 2006 Pneumococcal vaccine <65 (1 of 2 - PCV) 2007 Influenza Vaccine (Season Ended) 2024 11/07/19 18 HPV Vaccines Aged Out No longer eligi ble based on patient's age to complete this topic Insurance Care Teams Warehouse Analyst Relationship Specialty Start Date End Date Paul Quiñonez MD [address] [address] PCP - General 02/02/22 Paul Quiñonez MD [address] [address] Referring Physician Family Medicine 09/25/22
--- OUTSIDE RECORDS SUMMARY | 2024-06-22 13:21 | XMS_ITS | Data Portability ---
Author Organization [place] [facility], Main Office Address [address] [place] [address] Care Team Providers Care Screw Machine Hand Name Role Phone ROZINA COATS Primary Care Provider [phone] Assessment No assessment recorded. Plan of Treatment Reminders Order Date Submit Date Provider Last Modified By Organization Details Last Modified Time Details Appointments None recorded. Lab igg subclasses 1+2+3+4, serum 2022 023 [email or web address] 25 [address] [facility], [address] [address], [place], [address], 09:46:18 Referral None recorded. Procedures None recorded. Surgeries None recorded. Imaging None recorded. Medication Orders None recorded. Patient TargetsNo targets recorded. Patient InstructionsNo instructions recorded. Reason for Referral None Reported. Results Created Date Observation Date Name Description Value Unit Range Abnormal Flag Note LastModifiedBy Organization Detail LastModifiedTime 06/01/1906/12/2022 RESPI RATOR Y [facility] N VIII dermatophago ides pteronyssinu s (D1) IgE 0.24 kU/L high Not Available [facility] [address] [address], [place], [address], 06/12/2022 18:28:37 06/01/19 23 06/12/2022 RESPI RATOR Y ALLER GY PROFI LE REGIO N VIII class 0/1 Not Available [facility] [address] [place], [address], 06/12/2022 18:28:37 06/01/19 23 06/12/2022 RESPI RATOR Y ALLER GY PROFI LE REGIO N VIII dermatophago ides farinae (D2) IgE 0.30 kU/L high Not Available [address], [address], 06/12/2022 18:28:37 06/01/19 23 06/12/2022 RESPI RATOR Y ALLER GY PROFI LE REGIO N VIII class 0/1 Not Available [address], [address], 06/12/2022 18:28:37 06/01/19 23 06/12/2022 RESPI RATOR Y [facility]ER GY [facility]FI LE REG[facility] N VIII penicillium notatum (M1) IgE <0.10 kU/L normal Not Available [address], [address], 06/12/2022 18:28:37 06/01/19 23 06/12/2022 RESPI RATOR Y ALLER GY [facility]FI LE REG[facility] N VIII class 0 Not Available [address], [address], 06/12/2022 18:28:37 06/01/19 23 06/12/2022 RESPI RATOR Y [facility]ER [facility]Y [facility] N VIII cladosporium herbarum (M2) IgE <0.10 kU/L normal Not Available [address], [address], 06/12/2022 18:28:37 06/01/19 23 06/12/2022 RESPI RATOR Y [facility]ER GY [facility]FI [facility] N VIII class 0 Not Available [address], [address], 06/12/2022 18:28:37 06/01/19 23 06/12/2022 RESPI RATOR Y [facility] N VIII aspergillus fumigatus (M3) IgE <0.10 kU/L normal Not Available [facility] [address] [address] [address] , [place], [address], 06/12/2022 18:28:37 06/01/19 23 06/12/2022 RESPI RATOR Y ALLER GY PROFI LE REGIO N VIII class 0 Not Available [address] [address] [place], [address], 06/12/2022 18:28:37 06/01/19 23 06/12/2022 RESPI RATOR Y [facility] N VIII alternaria alternata (M6) IgE <0.10 kU/L normal Not Available [address] [address] [place], [address], 06/12/2022 18:28:37 06/01/19 23 06/12/2022 RESPI RATOR Y ALLER GY PROFI LE REGIO N VIII class 0 Not Available [address] [address] [facility] [place], [address], 06/12/2022 18:28:37 06/01/19 23 06/12/2022 RESPI RATOR Y ALLER GY PROFI LE REGIO N VIII CAT dander (E1) IgE <0.10 kU/L normal Not Available [address] [address] [facility] [place], [address], 06/12/2022 18:28:37 06/01/19 23 06/12/2022 RESPI RATOR Y ALLER GY PROFI LE REGIO N VIII class 0 Not Available [address] [address] [place], [address], 06/12/2022 18:28:37 06/01/19 23 06/12/2022 RESPI RATOR Y [facility] N VIII dog dander (E5) IgE <0.10 kU/L normal Not Available [address] [address] [place], [address], 06/12/2022 18:28:37 06/01/19 23 06/12/2022 RESPI RATOR Y [facility] N VIII class 0 Not Available [address], [address], 06/12/2022 18:28:37 06/01/19 23 06/12/2022 RESPI RATOR Y [facility] N VIII cockroach (I6) IgE 0.56 kU/L high Not Available [address], [address], 06/12/2022 18:28:37 06/01/19 23 06/12/2022 RESPI RATOR Y [facility]ER GY [facility] N VIII class 1 Not Available [address], [address], 06/12/2022 18:28:37 06/01/19 23 06/12/2022 RESPI RATOR Y [facility]ER [facility] N VIII maple (box elder) (T1) IgE 0.29 kU/L high Not Available [address], [address], 06/12/2022 18:28:37 06/01/19 23 06/12/2022 RESPI RATOR Y [facility]ER [facility] N VIII class 0/1 Not Available [address], [address], 06/12/2022 18:28:37 06/01/19 23 06/12/2022 RESPI RATOR Y [facility]ER [facility]Y [facility] N VIII mountain cedar (T6) IgE 0.24 kU/L high Not Available [address], [address], 06/12/2022 18:28:37 06/01/19 23 06/12/2022 RESPI RATOR Y ALLER GY PROFI [facility] REG[facility] N VIII class 0/1 Not Available [facility] [address] [place], [address], 06/12/2022 18:28:37 06/01/19 23 06/12/2022 RESPI RATOR Y ALLER GY PROFI LE REGIO N VIII walnut tree (T10) IgE 0.16 kU/L high Not Available [facility] [address] [address] [place], [address], 06/12/2022 18:28:37 06/01/19 23 06/12/2022 RESPI RATOR Y ALLER GY [facility]FI [facility] N VIII class 0/1 Not Available [facility] [address], [address], 06/12/2022 18:28:37 06/01/19 23 06/12/2022 RESPI RATOR Y ALLER GY [facility] N VIII sycamore (T11) IgE <0.10 kU/L normal Not Available [address], [address], 06/12/2022 18:28:37 06/01/19 23 06/12/2022 RESPI RATOR Y [facility]ER [facility]Y [facility] N VIII class 0 Not Available [address], [address], 06/12/2022 18:28:37 06/01/19 23 06/12/2022 RESPI RATOR Y ALLER GY [facility]FI [facility] N VIII cottonwood (T14) IgE <0.10 kU/L normal Not Available [facility] [address], [address], 06/12/2022 18:28:37 06/01/19 23 06/12/2022 RESPI RATOR Y ALLER GY PROFI LE REG[facility] N VIII class 0 Not Available [facility] [address], [address], 06/12/2022 18:28:37 06/01/19 23 06/12/2022 RESPI RATOR Y ALLER GY [facility]FI [facility] N VIII white chris (T15) IgE <0.10 kU/L normal Not Available [address], [address], 06/12/2022 18:28:37 06/01/19 23 06/12/2022 RESPI RATOR Y ALLER [facility]Y [facility] N VIII class 0 Not Available [address], [address], 06/12/2022 18:28:37 06/01/19 23 06/12/2022 RESPI RATOR Y ALLER GY [facility]FI [facility] N VIII oak (T7) IgE <0.10 kU/L normal Not Available [address], [address], 06/12/2022 18:28:37 06/01/19 23 06/12/2022 RESPI RATOR Y ALLER GY PROFI [facility] N VIII class 0 Not Available [address], [address], 06/12/2022 18:28:37 06/01/19 23 06/12/2022 RESPI RATOR Y ALLER GY [facility]FI LE REG[facility] N VIII elm (T8) IgE 0.28 kU/L high Not Available [address], [address], 06/12/2022 18:28:37 06/01/19 23 06/12/2022 RESPI RATOR Y ALLER GY [facility] N VIII class 0/1 Not Available [address], [address], 06/12/2022 18:28:37 06/01/19 23 06/12/2022 RESPI RATOR Y ALLER GY [facility]FI [facility] REG[facility] N VIII hickory/peca n tree (T22) IgE <0.10 kU/L normal Not Available [address] [address] [place], [address], 06/12/2022 18:28:37 06/01/19 23 06/12/2022 RESPI RATOR Y ALLER GY PROFI LE REGIO N VIII class 0 Not Available [address] [address] [place], [address], 06/12/2022 18:28:37 06/01/19 23 06/12/2022 RESPI RATOR Y ALLER GY PROFI LE REGIO N VIII white mulberry (T70) IgE <0.10 kU/L normal Not Available [address], [address], 06/12/2022 18:28:37 06/01/19 23 06/12/2022 RESPI RATOR Y ALLER GY PROFI LE REG[facility] N VIII class 0 Not Available [address], [address], 06/12/2022 18:28:37 06/01/19 23 06/12/2022 RESPI RATOR Y ALLER GY [facility] N VIII bermuda grass (g2) IgE <0.10 kU/L normal Not Available [address], [address], 06/12/2022 18:28:37 06/01/19 23 06/12/2022 RESPI RATOR Y ALLER GY PROFI LE REGIO N VIII class 0 Not Available [address] [address] [place], [address], 06/12/2022 18:28:37 06/01/19 23 06/12/2022 RESPI RATOR Y ALLER GY [facility]FI [facility] N VIII michelle grass (g6) IgE <0.10 kU/L normal Not Available [address], [address], 06/12/2022 18:28:37 06/01/19 23 06/12/2022 RESPI RATOR Y ALLER GY [facility] N VIII class 0 Not Available [address], [address], 06/12/2022 18:28:37 06/01/19 23 06/12/2022 RESPI RATOR Y ALLER GY [facility] N VIII common ragweed (short) (W1) IgE 0.61 kU/L high Not Available [address] [address] [place], [address], 06/12/2022 18:28:37 06/01/19 23 06/12/2022 RESPI RATOR Y ALLER GY PROFI LE REGIO N VIII class 1 Not Available [address], [address], 06/12/2022 18:28:37 06/01/19 23 06/12/2022 RESPI RATOR Y ALLER GY [facility] N VIII rough pigweed (W14) IgE <0.10 kU/L normal Not Available [address], [address], 06/12/2022 18:28:37 06/01/19 23 06/12/2022 RESPI RATOR Y ALLER [facility]Y [facility] N VIII class 0 Not Available [address], [address], 06/12/2022 18:28:37 06/01/19 23 06/12/2022 RESPI RATOR Y ALLER [facility]Y [facility] N VIII slovenian thistle (W11) IgE <0.10 kU/L normal Not Available [address], [address], 06/12/2022 18:28:37 06/01/19 23 06/12/2022 RESPI RATOR Y ALLER GY [facility]FI [facility] N VIII class 0 Not Available [address], [place], [address], 06/12/2022 18:28:37 06/01/19 23 06/12/2022 RESPI RATOR Y ALLER GY PROFI LE REGIO N VIII rough castillo elder (W16) IgE <0.10 kU/L normal Not Available [facility] [address], [address], 06/12/2022 18:28:37 06/01/19 23 06/12/2022 RESPI RATOR Y ALLER GY PROFI LE REGIO N VIII class 0 Not Available [facility] [address], [address], 06/12/2022 18:28:37 06/01/19 23 06/12/2022 RESPI RATOR Y ALLER GY PROFI LE REGIO N VIII mouse urine proteins (E72) IgE <0.10 kU/L normal Not Available [facility] [address], [address], 06/12/2022 18:28:37 06/01/19 23 06/12/2022 RESPI RATOR Y ALLER GY [facility]FI LE REG[facility] N VIII class 0 Not Available [address], [address], 06/12/2022 18:28:37 06/01/19 23 06/12/2022 RESPI RATOR Y ALLER GY PROFI LE REGIO N VIII immunoglobul in E 63 kU/L <or=11 4 normal Not Available [facility] [address], [address], 06/12/2022 18:28:37 06/01/19 23 06/12/2022 INTER PRETA TION interpretati on Speci fic Level of Aller gen IGE Class kU/L Speci fic IGE Antib sidney ----- ----- ---- ----- ----- ----- ---- 0 <0.10 Absen t/Und etect able 0/1 0.10- 0.34 Very Low Level 1 0.35- 0.69 Low Level 2 0.70- 3.49 Moder ate Level 3 3.50- 17.4 High Level 4 17.5- 49.9 Very High Level 5 50-10 0 Very High Level 6 >100 Very High Level The clini ruddy relev ance of aller gen resul ts of 0.10- 0.34 kU/L are undet ermin ed and inten ded for speci alist use. Aller gens denot ed with a inclu de resul ts using one or more nato te speci fic reage nts. In those cases , the test was devel oped and its nato tical perfo rmanc e pedro luis cteri stics have been deter mined by [facility]. It has not been clear ed or appro thuy by the U.S. Food and Drug Admin istra tion. This assay has been valid ated pursu ant to the CLIA regul ation s and is used for clini ruddy purpo ses. Not Available [facility] [address] [address] [place], [address], 06/12/2022 18:28:39 06/01/19 23 06/12/2022 IMMUN OGLOB ULIN G SUBCL ASSES PANEL immunoglobul in g subclass 1 932 mg/dL 382-92 9 high Not Available [address] [address] [place], [address], 06/12/2022 18:28:39 06/01/19 23 06/12/2022 IMMUN OGLOB ULIN G SUBCL ASSES PANEL immunoglobul in g subclass 2 406 mg/dL 241-70 0 Not Available [address] [address] [place], [address], 06/12/2022 18:28:39 06/01/19 23 06/12/2022 IMMUN OGLOB ULIN G SUBCL ASSES PANEL immunoglobul in g subclass 3 59 mg/dL 22-178 Not Available [address] [address] [place], [address], 06/12/2022 18:28:39 06/01/19 23 06/12/2022 IMMUN OGLOB ULIN G SUBCL ASSES PANEL immunoglobul in g subclass 4 2.7 mg/dL 4.0-86 .0 low Not Available [address], [address], 06/12/2022 18:28:39 06/01/19 23 06/12/2022 IMMUN OGLOB ULIN G SUBCL ASSES PANEL immunoglobul in g, serum 1354 mg/dL 600-16 40 Not Available [address], [address], 06/12/2022 18:28:39 06/01/19 23 06/12/2022 EOSIN OPHIL COUNT (B) white blood cell count 10.0 thous and/u L 3.8-10 .8 normal Not Available [address], [address], 06/12/2022 18:28:40 06/01/19 23 06/12/2022 EOSIN OPHIL COUNT (B) absolute eosinophils 120 cells /uL 15-500 normal Not Available [address], [address], 06/12/2022 18:28:40 06/01/19 23 06/12/2022 EOSIN OPHIL COUNT (B) eosinophils 1.2 % normal Not Available [address], [address], 06/12/2022 18:28:40 06/01/19 23 06/12/2022 ALPHA -1-AN TITRY PSIN QN [id number] trypsin qn 149 mg/dL 83-199 normal Not Available [address], [address], 06/12/2022 18:28:40 06/01/19 23 06/12/2022 ALPHA -1-AN TITRY PSIN (AAT) PHENO TYPE [id number] trypsin (aat) phenotype SEE NOTE THIS PATIE NT'S ALPHA -1-AN TITRY PSIN PHENO TYPE IS PI*MM . 90% of juhi l indiv idual s have the MM pheno type, with juhi l quant itati ve AAT level s. Many pheno typic patte rns have been descr ibed, inclu ding defic iency state s with F, S, Z, or other allel es. As a gener al estim ation , trish red to M allel e of 100% of juhi l A-1-A ntitr ypsin prote in, the S allel e produ elise appro ximat dagoberto 60% and the Z allel e 20%. For examp le, an MS pheno type would have about 80% of juhi l A-1-A ntitr ypsin prote in level , a 50% contr ibuti on from the M allel e and 30% from the S allel e. A ZZ pheno type would have about 20% of juhi l level s, a 10% contr ibuti on from each Z gene. The F allel e has juhi l A-1-A ntitr ypsin level s, but the kinet ics of elast ase inhib ition is not as effic ient as an M allel e produ ct; F allel es shoul d be consi dered funct ional ly mildl y defic ient. Other varia nts are ident ifiab le by pheno typic nato sis. These inclu de CM, DP, EM, GM, IS, LM, M1M2, M3M3, MP, MT, XX, MY, and M1N. I, P, T and null allel es are consi dered delet eriou s. C, D, E, G, L, M1, M2, M3, X and Y allel es are gener ally consi dered juhi l varia nts. The MZ-Pr att pheno type is a juhi l varia nt; care shoul d be taken to avoid confu dasha with the defic ient MZ pheno type. Not Available [facility] [address] [address] , [place], [address], 06/12/2022 18:28:41 06/01/19 23 06/12/2022 QUANT IFERO N(R)- TB GOLD PLUS, 1 TUBE quantiferon( R)-TB gold plus, 1 tube NEGATI VE negati ve normal Negat laureen test resul t. M. tuber culos is compl ex infec tion unlik dagoberto. Not Available [address], [address], 06/12/2022 18:28:41 06/01/19 23 06/12/2022 QUANT IFERO N(R)- TB GOLD PLUS, 1 TUBE nil 0.03 IU/mL normal Not Available [address], [address], 06/12/2022 18:28:41 06/01/19 23 06/12/2022 QUANT IFERO N(R)- TB GOLD PLUS, 1 TUBE mitogen-nil 9.85 IU/mL normal Not Available [address], [address], 06/12/2022 18:28:41 06/01/19 23 06/12/2022 QUANT IFERO N(R)- TB GOLD PLUS, 1 TUBE TB1-nil 0.00 IU/mL normal Not Available [address], [address], 06/12/2022 18:28:41 06/01/19 23 06/12/2022 QUANT IFERO N(R)- TB GOLD PLUS, 1 TUBE TB2-nil 0.00 IU/mL normal The Nil tube value refle cts the backg round inter feron gamma immun e respo nse of the patie nt's blood sampl e. This value has been subtr acted from the patie nt's displ ayed TB and Mitog en resul ts. Lower than expec loy resul ts with the Mitog en tube preve nt false -nega tive Quant ifero n readi ngs by detec ting a patie nt with a poten tial immun e suppr essiv e condi tion and/o r subop timal pre-a nalyt ical speci men handl ing. The TB1 Antig en tube is coate d with the M. elsa kimos is-sp ecifi c antig ens desig jaciel to elici t respo nses from TB antig en prime d CD4+ helpe r T-lym phocy merlin. The TB2 Antig en tube is coate d with the M. elsa kimos is-sp ecifi c antig ens desig jaciel to elici t respo nses from TB antig en prime d CD4+ helpe r and CD8+ cytot oxic T-lym phocy merlin. For addit ional infor maureen jones e refer to https ://ed ati on.qu ashleyGoby/f aq/FA Q204 (This link is being provi ded for infor mary davidson/ educa francia l purpo ses only. ) Not Available [facility] [address] [address] [place], [address], 06/12/2022 18:28:41 06/01/19 23 05/31/2022 XR, chest , 2 view No observ ation record ed. [address], [address], 06/07/2022 09:24:18 07/06/19 23 07/05/2022 metha choli ne chall enge* No observ ation record ed. [address], [address], 07/10/2022 12:08:57 Result Notes None recorded. Problems Name Problem SNOMED Code Status Onset Date Resolution Date Notes Provider Name and Address Organization Details Recorded Time Asthma 724936420 Active 2022 Not Available [facility] 3 20:39:08 Tachycardia 9650214 Active 2022 Not Available [facility] 3 20:39:08 Hypothyroidis m 33608016 Active 2018 Not Available [facility] 3 20:39:08 Dyspnea on exertion 80319850 Active 2022 Not Available [facility] 3 20:39:08 Chronic cough 53670100 Active 2022 Not Available [facility] 3 20:39:08 Immunoglobuli ns outside reference range 133115145 Active 2022 Yary Gabriel, [employer] [address] [facility], [address], [place], [address] , [facility] 3 10:30:34 Problem Notes None recorded. Procedures Surgical History None recorded. Imaging Results Imaging Date Name Status LastModified by Organization Details LastModified Time 05/31/2022 XR, chest, 2 view completed [address] [place] [address], [address], 06/07/2022 09:24:18 07/05/2022 methacholine challenge* completed [address] [place] [address], [address], 07/10/2022 12:08:57 Procedure Notes None recorded. Medical Equipment None Reported. Medications Name Sig Start Date Stop Date Status Note LastModified by Organization Details LastModified Time cyclobenzap rine 10 mg tablet TAKE 1 TABLET BY MOUTH TWICE DAILY NEEDED FOR MUSCLE SPASM 04/23 completed Not Available Not Available Not Available levothyroxi ne 137 mcg tablet TAKE 1 TABLET BY MOUTH EVERY DAY 04/23 completed Not Available Not Available Not Available doxycycline hyclate 100 mg capsule 05/05 completed Not Available Not Available Not Available albuterol sulfate 2.5 mg/3 mL (0.083 %) solution for nebulizatio n USE 3 ML VIA NEBULIZER THREE TIMES DAILY active Not Available Not Available No t Available triamcinolo ne acetonide 0.5 % topical cream APPLY TOPICALLY TWICE DAILY TO RASH ON EXTREMITI ES UNTIL CLEAR BUT NO LONGER THAN 2 WEEKS active Not Available Not Available No t Available cetirizine 10 mg tablet TAKE 10MG BY MOUTH DAILY active Not Available Not Available No t Available azithromyci n 250 mg tablet TAKE 2 TABLETS BY MOUTH FOR 1 DAY THEN TAKE 1 TABLET BY MOUTH DAILY FOR 4 DAYS 04/23 completed Not Available Not Available Not Available famotidine 40 mg tablet TAKE 1 TABLET BY MOUTH TWICE DAILY active Not Available Not Available No t Available prednisone 20 mg tablet TAKE 1 TABLET BY MOUTH TWICE DAILY active Not Available Not Available No t Available Tamiflu 75 mg capsule Take 1 capsule twice a day by oral route for 5 days. 04/23 completed Not Available Not Available Not Available sulfamethox azole 800 mg-trimetho prim 160 mg tablet TAKE 1 TABLET BY MOUTH EVERY 12 HOURS 04/23 completed Not Available Not Available Not Available levothyroxi ne 25 mcg tablet Take 1 tablet every day by oral route for 30 days. active Not Available Not Available No t Available levothyroxi ne 88 mcg tablet 05/05 completed Not Available Not Available Not Available propranolol 10 mg tablet Take 1 tablet 3 times a day by oral route as needed for 30 days. 09/19 completed Not Available Not Available Not Available polymyxin B sulfate 10,000 unit-trimet hoprim 1 mg/mL eye drops INSTILL 1 DROP IN EACH EYE FOUR TIMES DAILY WHILE AWAKE FOR 7 DAYS. DO NOT EXCEED 6 DOSES IN 24 HOURS active Not Available Not Available No t Available levothyroxi ne 150 mcg tablet TAKE 1 TABLET BY MOUTH EVERY MORNING active Not Available Not Available No t Available Synthroid 75 mcg tablet TAKE 1 TABLET BY MOUTH EVERY DAY IN THE MORNING FOR 30 DAYS 04/23 completed Not Available Not Available Not Available montelukast 10 mg tablet TK 1 T PO D 04/23 completed Not Available Not Available Not Available methylpredn isolone 4 mg tablets in a dose pack TK UTD 06/30 completed Not Available Not Available Not Available cefdinir 300 mg capsule TAKE 1 CAPSULE BY MOUTH EVERY 12 HOURS active Not Available Not Available No t Available azithromyci n 500 mg tablet TAKE 1 TABLET BY MOUTH DAILY FOR 5 DAYS 04/23 completed Not Available Not Available Not Available bupropion HCl XL 150 mg 24 hr tablet, extended release TAKE 1 TABLET BY MOUTH EVERY MORNING active Not Available Not Available No t Available Flovent HFA 110 mcg/actuati on aerosol inhaler INHALE 1 PUFF BY MOUTH TWICE DAILY DIRECTED active Not Available Not Available No t Available Estarylla 0.25 mg-0.035 mg tablet TK 1 T PO QD active Not Available Not Available No t Available Ashlyna 0.15 mg-30 mcg (84)/10 mcg(7) tablets,3 month dose pack 06/30 completed Not Available Not Available Not Available Vitals Date Recorded Body mass index (BMI) Body height Oxygen saturation Oxygen saturation in Arterial blood by Pulse oximetry Heart rate Body temperature Body weight Systolic blood pressure Diastolic blood pressure Provider Name and Address Organization Details Last Updated DateTime 3 30.7 kg/m2 167.64 cm 98 % 98 % 120 /min 97.2 [degF] 27899.5 5 g 122 mm[Hg] 70 mm[Hg] Not Available [facility] 3 20:38:46 Date Recorded Body height Body mass index (BMI) Body weight Body temperature Heart rate Oxygen saturation Oxygen saturation in Arterial blood by Pulse oximetry Systolic blood pressure Diastolic blood pressure Provider Name and Address Organization Details Last Updated DateTime 3 167.64 cm 30.7 kg/m2 81328.5 5 g 98.3 [degF] 78 /min 97 % 97 % 122 mm[Hg] 74 mm[Hg] Indira Ariza MA [facility] [employer] [facility] 3 12:26:35 Date Recorded Body height Body mass index (BMI) Body weight Body temperature Heart rate Oxygen saturation Oxygen saturation in Arterial blood by Pulse oximetry Systolic blood pressure Diastolic blood pressure Provider Name and Address Organization Details Last Updated DateTime 3 167.64 cm 30.8 kg/m2 77077.1 4 g 98 [degF] 93 /min 96 % 96 % 122 mm[Hg] 60 mm[Hg] Martita Walsh [place] [employer] [facility] [employer] 3 10:04:57 Social History Question Answer Notes LastModified by Organizat ion Details LastModified Time Tobacco Smoking Status Never Smoker Martita Walsh [facility] [employer] [facility] 07/16/2022 10:06:02 What Is Your Level Of Alcohol Consumption? None [email or web address] Information not available 07/16/2022 What Is Your Level Of Caffeine Consumption? None [email or web address] Information not available 07/16/2022 Do You Have Any Pets? No [email or web address] Information not available 07/16/2022 Do You Use Any Illicit Or Recreational Drugs? No [email or web address] Information not available 07/16/2022 Do You Or Have You Ever Used Any Other Forms Of Tobacco Or Nicotine? No [email or web address] Information not available 07/16/2022 Sex: Unknown Functional Status None recorded. Mental Status None recorded. Family History Nothing Reported. Medical History No medical history recorded. Gynecological HistoryNo gynecological history recorded. Obstetrics History GPAL:G 0 P 0 0 0 0 Immunizations Vaccine Type Date Status Note Provider Nam e and Address Organization Details Recorded Time Influenza, split virus, quadrivalent, preservative 8 completed Not Available [facility] 04/25/2022 20:40:07 Past Encounters Encounter ID Performer Location Encounter Start Date Encounter Closed Date Diagnosis/Indication Diagnosis SNOMED-CT Code Diagnosis ICD10 Code Diagnosis Note [id number] [facility] [address] [place] [address] 04/23/2022 00:00:00 04/23/2022 16:59:34 [id number] LUKE Umanzor [facility] [address] [place] [address] 06/08/2022 12:18:21 06/08/2022 17:01:38 Asthma 714388703 J45.909 PFT completed with FEV1 85 and mild obstructiv e pattern notedCheck methacholi ne challenge - staff scheduled todaySympt oms consistent with asthmaCont inue Flovent with aerochambe rInstructe d on techniqueN ebulizer for PRN useRTC after testing completed Chronic cough 55951240 R 05.3 CXR WNL Dyspnea on exertion 6084 5006 R06.09 Awaiting labs from [facility] History of SARS-CoV-2 29 [id number] Z86.16 + February 2021 [id number] LUKE Umanzor [facility] [place] [address] [place] [address] 07/16/2022 09:55:09 07/16/2022 15:00:49 Asthma [id number] J45.909 ACT 24PFT completed with FEV1 85 and mild obstructiv e pattern notedMetha choline challenge positive at level 3Continue Flovent 110 with aerochambe rInstructe d on techniqueN ebulizer for PRN useRAST with reactions to dust mites, cockroach, maple, mountain cedar, walnut, elm, ragweedCon tinue allergy pill dailyAlbut yvonne PRN - discussed indication s for useRTC in 6 months, PRN for concerns Immunoglob ulins outside reference range 139322012 R89.4 IGG 1 elevatedIG G 4 low.Rechec k in 6 months Chronic cough 43862203 R 05.3 ResolvedCX R WNL Dyspnea on exertion 6084 5006 R06.09 Esosinophi ls, Alpha1, IGE, Quantifero n GOLD normal History of SARS-CoV-2 29 [id number] Z86.16 + February 2021 Health Concerns Section Related Observation LastModified by Organization Detai ls LastModified Time None Recorded Concern Status LastModified by Organization Details LastModified Time None Recorded Advance Directives Directive None Recorded Payers Encounter Date Sequence Insurance Name Policy Number Policy Bustillos Covered Member ID Bustillos Member ID Guarantor Name 06/08/2022 1 [facility] [id number] Juan Kaur [id number] Juan Kaur 07/16/2022 1 [facility] [id number] Juan Kaur [id number] Juan Kaur Notes Date Note Type Note Provider Name and Address Organization Details Recorded Time 06/08/2022 text/html Ms Vincent blanco today to follow up on cough, dyspnea, testingShe reports that her whole family has been sick for the last month with both URI and pink eye.Had antibiotics from PCM with improvementShe has not gotten all testing completedSymptoms are largely unchangedUnsure of clinical benefit from Flovent Yary Rios, [employer] [address] [facility], [facility] [address], [place], [address], [facility] 06/10/2022 15:14:58 07/16/2022 text/html Ms Kaur daron today to follow up on cough, dyspnea, testingHas been doing well and denies wheezing, cough, chest painDoes not wake at night R/T respiratory symptoms.Unsure of clinical benefit from Flovent, but she is compliant with this daily.,Rare rescue MDI use.She has some mild dyspnea, but overall she does not feel like I have asthma She is not waking at night R/T respiratory symptoms.She is working on weight loss.Of note, she has recently had unexplained rashes, is following with PCM Yary Rios, [facility] [address] [facility], [facility] [address], [place], [address], [place] [facility] 07/16/2022 12:51:50 OBGyn Episode No OBEpisode recorded.
== END 2024-06-22 11:17 | disposition home or self-care (01) ==
LOC: ANHSURGERY 11:21
PROVIDERS: PCP Nurse Practitioner Family; Visit Provider Obstetrics & Gynecology
DX: N92.0 Excessive and frequent menstruation with regular cycle (principal)
CPT/HCPCS: 36415; 86850; 86900; 86901

== ENCOUNTER 2024-06-26 00:50 | Day surgery (SDC) | payer OTHER, SELFPAY ==
[2024-06-15 15:21] VITALS: BMI 30.2
--- NOTE | 2024-06-16 12:15 | SUR.PREOP ---
Report to the Outpatient Waiting Room, entrance under the green pavilion located off [facility], at time 1000 on date 06/26/24. Planned Procedure Time: 1200.? Time changes happen often and if your time is changed the preop area will call you the afternoon before. - You and your visitor will be asked to self-screen and do not enter if you have any COVID symptoms. Please call surgeon if you need to reschedule. - A mask is optional within the hospital at this time. Patients may have clear liquids (water, carbonated beverages, clear teas, apple juice) until 3 hours prior to surgery with a maximum of 20 ounces. - No food from midnight until time of surgery and no smoking, or chewing tobacco (or any form nicotine). No chewing gum, candy or mints. - Infants may have breast milk until 4 hours before surgery, formula 6 hours prior to surgery. - Children will be allowed to drink immediately following surgery.? If applicable, please bring a bottle or sippy cup to assist with drinking. Juice, water, soda, and popsicles are readily available.? For infants on formula, please bring formula the day of surgery.? Pacifiers are allowed. Take only the following medications with a SIP of water on the morning of surgery: bupropion, levothyroxine DO NOT STOP ANY OF YOUR OTHER PRESCRIPTION MEDICATIONS PRIOR TO SURGERY EXCEPT THE FOLLOWING Hold all vitamins and supplements for 3 days per anesthesiologist. Medications to discontinue per physician: N/A Date to take last dose: n/a Please no make-up, nail georgian, hairspray, perfume, deodorant, or body powder the day of surgery.? No jewelry (including any body piercings) or valuables the day of surgery, leave them at home.? Please take a shower or bath the night before, or the morning of, surgery with an antibacterial soap.? Wear comfortable, loose fitting clothing.? Children are encouraged to wear pajamas. - Jewelry must be removed prior to entering the operating room.? Rings and piercings that are not removed may be cut off. - The hospital will not accept responsibility for valuables.? - Please leave all valuables, including medications, at home the day of surgery. If you are going home after surgery, a licensed batch mixing truck driver must drive you home.? - NO public transportation without another adult if you receive anesthesia. - We recommend that an adult stay with you for 24 hours following discharge. - We also recommend that you do not drive, make important decision, drink alcoholic beverages, or take any drugs that were not prescribed by your health care provider for at least 24 hours after your discharge time. For Pediatric surgeries, we recommend two adults accompany the child home. Follow any additional instructions given to you from your surgeon. Telephone instructions given to pt - Juan and asked if any additional questions and then verbalized understanding. Instructions given by Aquiles Sanchez RN (document did not save). Patient advised to call surgeon office or pre surgery nurse liaison [phone] if any additional questions.
[2024-06-26] VITALS (10 sets, daily range): BP systolic 103–136; BP diastolic 63–94; PULSE 61–976; RESP 12–18; TEMP 36.2–37.2; O2SAT 95–100
--- OUTSIDE RECORDS SUMMARY | 2024-06-26 00:52 | XMS_ITS | Clinical Summary ---
Author Organization [facility] [employer] Address [address] [place] [address] Care Team Providers Care Sales Appointment Coordinator Name Role Phone Gwen Pacheco MD Primary Care Provider [phone] Source Comments [facility] [employer]non-owned Affiliates and Associated Physician Practices is amultiple site organization consisting of ambulatory clinics and hospital sitesin [place], [place], [place] and [place]. This disclosure is being madepursuant to the Care Everywhere program and may not contain all information available regarding this patient. Last updated 17.[facility] [employer] 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
--- OUTSIDE RECORDS SUMMARY | 2024-06-26 00:52 | XMS_ITS | Referral Summary ---
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 Sexual Orientation Not on file Last Filed Vital Signs Vital Sign Reading Time Taken Comments Blood Pressure 123/85 05/07/2023 11:25 AM CDT Pulse 92 05/07/2023 11:25 AM CDT Temperature 36.6 C (97.9 F) 03/22/2023 10:18 AM CALL CENTER RECRUITER Respiratory Rate 16 03/22/2023 10:18 AM CALL CENTER RECRUITER Oxygen Saturation 98% 03/22/2023 12:30 PM CALL CENTER RECRUITER Inhaled Oxygen Concentration - - Weight 87.1 kg (192 lb) 05/07/2023 11:25 AM CDT Height 167.6 cm (5' 6 ) 05/07/2023 11:25 AM CDT Body Mass Index 30.99 05/07/2023 11:25 AM CDT Plan of Treatment Not on file Insurance [facility] H[facility]/PPO Address: [address] [place] [phone] [place] [address] [facility] H[facility]/PPO Address: [address] [address] Care Teams Document Control Manager Relationship Specialty Start Date End Date Paul Quiñonez MD [address] [address] PCP - General 02/02/22 Paul Quiñonez MD [address] [address] Referring Physician Family Medicine 09/25/22
--- OUTSIDE RECORDS SUMMARY | 2024-06-26 00:53 | XMS_ITS | Data Portability ---
Author Organization [facility] [place] Address [address] [place] [address] [place] [address] Care Team Providers Care Thread Clipper Name Role Phone QUENTINJASBIR ROZINA Primary Care Provider Assessment Encounter Date Assessment Date Assessment LastModified by Organization Details LastModified Time 01/29/2024 01/29/2024 Annual gynecological exam performed. Patient will come back in a year unless there are new symptoms. [email or web address] Not available 01/29/2024 16:28:48 Plan of Treatment [...] yanet (SURG) 2024 025 [id number] Heriberto Surgery [facility], [address], [place], [address], 05/18/2024 10:07:37 Imaging US, pelvis 2024 025 [email or web address] [facility] [address], [place], [address], 04/16/2024 13:12:12 US, transvagi nal 2024 025 [email or web address] [address], [address], [place], [address], 04/16/2024 13:12:12 US, pelvis, complete 2023 024 [email or web address] [address], [address], [place], [address], 05/13/2024 21:03:26 US, pelvis 2022 023 [email or web address] [address], [address], [place], [address], 11/22/2022 19:57:31 US, transvagi nal 2022 023 [email or web address] [address], [place], [address], 11/22/2022 19:57:31 Medication Orders None recorded. Patient [...] ----- ----- ---- FINAL DIAGN OSIS: Negat laureen for Intra epith elial Leskatie shea or [...] as clini daniel warra nted. Not Available [facility] (Lab) [address], [place], [address], 02/07/2024 16:31:10 11/23/19 23 11/22/2022 US, pelvi s No observ ation record ed. [email or web address] [place] [address], [place], [address], 11/22/2022 15:49:46 11/23/19 23 11/22/2022 US, trans vagin al No observ ation record ed. [email or web address] [place] [address], [place], [address], 11/22/2022 15:49:37 11/23/19 23 11/22/2022 US, pelvi s No observ ation record ed. [address], [place], [address], 11/23/2022 16:30:04 04/16/19 25 04/16/2024 US, pelvi s No observ ation record ed. [email or web address] [address] [address], [place], [address], 04/16/2024 09:59:54 04/16/19 25 04/16/2024 US, trans vagin al No observ ation record ed. [email or web address] [place] [address], [place], [address], 04/16/2024 10:00:05 04/16/1904/16/2024 US, pelvi s No observ ation record ed. [email or web address] [address], [place], [address], 04/21/2024 10:36:40 Result Notes None recorded. Problems Name Problem SNOMED Code Status Onset Date Resolution Date Notes Provider Name and Address Organization Details Recorded Time SNOMED CT Concept Completed 201606/17/2020 Encntr for easement man exam (general ) (routine ) w/o abn findings ;Practic e ID: 0001 Gwen verdugo [facility] 15:54:20 Pelvic and perineal pain 630844968 Completed 201706/17/2020 Pelvic and perineal pain;Pra ctice ID: 0001 Gwen verdugo [facility] 15:53:50 Deep pain on intercou rse 611808695 Completed 201706/17/2020 Deep dyspareu dipesh;Prac negrito ID: 0001 Gwen verdugo, [facility] 15:53:07 Pain in female genitali a Completed 201706/17/2020 Dysmenor sanaz, unspecif ied;Prac negrito ID: 0001 Gwen verdugo, [facility] 15:53:16 Finding of menstrua l bleeding Completed 201706/17/2020 Excessiv e and frequent menstrua tion with regular cycle;Pr actice ID: 0001 Gwen verdugo [facility] 15:53:18 Pregnanc y test negative [id number] Completed 201706/17/2020 Encounte r for pregnanc y test, result negative ;Practic e ID: 0001 Gwen verdugo [facility] 15:53:55 Imaging result abnormal [id number] Completed 201706/17/2020 Abnormal findings on diagnost ic imaging of body structur es;Pract ice ID: 0001 Gwen verdugo, [facility] 15:53:38 Educatio n Completed 201806/17/2020 Encounte r for oth general cnsl and advice on contrace ption;Pr actice ID: 0001 Gwen verdugo, [facility] 15:53:09 Miscarri age without complica tion [id number] Completed 201806/17/2020 Incomple te spontane ous without complica tion;Pra ctice ID: 0001 Gwen verdugo, [facility] 15:53:45 Screenin g for malignan t neoplasm of cervix Completed 201606/17/2020 Screenin g for malignan t neoplasm s of the cervix;R ecorded Elsewher e: No Locat ion: [facility] S ource: EHR Husbandry Person huy: N Practi ce ID: 0001 Sky lable Time: 02:45:00 PM Gwen Danielle [facility] 15:54:09 Infectio n screenin g Completed 201606/17/2020 Encounte r for screenin g for oth infec/pa rastc diseases ;Recorde d Elsewher e: No Locat ion: [facility] S ource: EHR Husbandry Person huy: N Practi ce ID: 0001 Sky lable Time: 02:45:00 PM Gwen Danielle [facility] 15:53:39 Syphilis test finding [id number] Completed 201506/17/2020 Encntr screen for infectio ns w sexl mode of transmis s;Record ed Elsewher e: No Locat ion: [facility] S ource: EHR Husbandry Person huy: N Practi ce ID: 0001 Sky lable Time: 03:30:00 PM Gwen Danielle kartik, [facility] 15:54:24 Missed miscarri age 02173685 Completed 201806/17/2020 Missed ;Recorde d Elsewher e: No [facility] E[facility] Husbandry Person huy: N Pardaise ce ID: 0001 Sky lable Time: 04:30:00 PM Gwen Lolis verdugo, [facility] 15:53:47 Normal pregnanc y in multigra andrei [id number] 4106 Completed 201606/17/2020 Encounte r for suprvsn of normal pregnanc y, second trimeste r;Record ed Elsewher e: No Locat ion: [facility] S ource: EHR Husbandry Person huy: N Paradise ce ID: 0001 Sky lable Time: 04:30:00 PM Gwen Lolis verdugo, [facility] 15:53:49 Pregnanc y detectio n examinat ion Completed 201506/17/2020 Encounte r for pregnanc y test, result positive ;Recorde d Elsewher e: No Locat ion: [facility] S ource: EHR Husbandry Person huy: N Paradise ce ID: 0001 Sky lable Time: 04:15:00 PM Gwen Lolis verdugo, [facility] 15:53:53 Threaten ed miscarri age 22226362 Completed 201806/17/2020 Threaten ed ;Recorde d Elsewher e: No Locat ion: [facility] S ource: EHR Husbandry Person huy: N Paradise ce ID: 0001 Sky lable Time: 09:00:00 AM Gwen Lolis verdugo, [facility] 15:54:26 Gestatio n less than 9 weeks [id number] Completed 201806/17/2020 Less than 8 weeks gestatio n of pregnanc y;Record ed Elsewher e: No Locat ion: [facility] S ource: EHR Husbandry Person huy: N Nardati ce ID: 0001 Sky lable Time: 04:30:00 PM Gwen verdugo, [facility] 1 15:53:21 Cytologi c finding [id number] Completed 201306/17/2020 Papanico laou smear of cervix with low grade squamous intraepi thelial lesion (LGSIL); Recorded Elsewher e: No Locat ion: [facility] S ource: EHR Husbandry Person huy: N Nardati ce ID: 0001 Sky lable Time: 11:45:08 AM Gwen verdugo, [facility] 1 15:53:04 Lochia finding Completed 201606/17/2020 Encounte r for routine postpart um follow-u p;Record ed Elsewher e: No Locat ion: [facility] S ource: EHR Husbandry Person huy: N Paradise ce ID: 0001 Sky lable Time: 09:00:00 AM Gwen verdugo, [facility] 15:53:44 Speciali zed medical examinat ion Completed 201206/17/2020 Gynecolo gical Examinat ion;Sidney rded Elsewher e: No Locat ion: [facility] S ource: EHR Husbandry Person huy: N Nardati ce ID: 0001 Sky lable Time: 09:00:00 AM Gwen verdugo, [facility] 1 15:54:23 Uterine size for dates discrepa ncy Completed 201606/17/2020 Uterine size-kajal e discrepa ncy, third trimeste r;Record ed Elsewher e: No [facility]: EHR Husbandry Person huy: N Nardati ce ID: 0001 Sky lable Time: 08:45:00 AM Gwen evrdugo [facility] 15:54:28 Gestatio n period, 36 weeks 51369943 Completed 201606/17/2020 36 weeks gestatio n of pregnanc y;Record ed Elsewher e: No Locat ion: [facility] S ource: EHR Husbandry Person huy: N Practi ce ID: 0001 Sky lable Time: 08:15:00 AM Gwen verdugo, [facility] 15:53:[address] Concept Completed 201506/17/2020 Encntr for general adult medical exam w/o abnormal findings ;Recorde d Elsewher e: No Locat ion: [facility] S ource: EHR Husbandry Person huy: N Practi ce ID: 0001 Sky lable Time: 03:30:00 PM Gwen verdugo, [facility] 15:54:18 Secondar y amenorrh ea 403739808 Completed 201506/17/2020 Secondar y amenorrh ea;Pract ice ID: 0001 Gwen verdugo, [facility] 15:54:11 Prematur e labor 0931818 Completed 201606/17/2020 labor without delivery , second trimeste r;Practi ce ID: 0001 Gwen verdugo, [facility] 15:54:07 Gestatio n period, 22 weeks 67779518 Completed 201606/17/2020 22 weeks gestatio n of pregnanc y;Practi ce ID: 0001 Gwen verdugo, [facility] 15:53:23 Gestatio n period, 28 weeks 10758430 Completed 201606/17/2020 28 weeks gestatio n of pregnanc y;Practi ce ID: 0001 Gwen verdugo, [facility] 15:53:26 False labor before 37 complete d weeks of gestatio n [id number] 042873 Completed 201606/17/2020 False labor before 37 complete d weeks of gest, third tri;Prac negrito ID: 0001 Gwen verdugo, [facility] 15:53:14 Gestatio n period, 32 weeks [id number] Completed 201606/17/2020 32 weeks gestatio n of pregnanc y;Practi ce ID: 0001 Gwen verdugo, [facility] 15:53:[address] Concept Completed 201606/17/2020 Maternal care for oth abnormal ity and damage, unsp;Pra ctice ID: 0001 Gwen verdugo, [facility] 15:54:16 Vomiting of pregnanc y 11091452 Completed 201606/17/2020 Late vomiting of pregnanc y;Practi ce ID: 0001 Gwen verdugo, [facility] 15:54:30 Gestatio n period, 35 weeks 94274628 Completed 201606/17/2020 35 weeks gestatio n of pregnanc y;Practi ce ID: 0001 Gwen verdugo, [facility] 15:53:31 Pregnanc y-induce d hyperten dasha Completed 201606/17/2020 Gestatio nal htn w/o signific ant proteinu catrachito, unsp trimeste r;Practi ce ID: 0001 Gwen verdugo, [facility] 15:53:57 Gestatio n period, 38 weeks 09344059 Completed 201606/17/2020 38 weeks gestatio n of pregnanc y;Practi ce ID: 0001 Gwen verdugo, [facility] 15:53:34 Cord entangle ment [id number] Completed 201606/17/2020 Labor and del comp by oth cord entangle , w/o comprsn, unsp;Pra ctice ID: 0001 Gwen verdugo, [facility] 15:53:02 Lacerati on of female perineum Completed 201606/17/2020 Second degree perineal lacerati on during delivery ;Practic e ID: 0001 Gwen verdugo, [facility] 15:53:41 Single live from singleto n pregnanc y [id number] Completed 201606/17/2020 Single live ;Pr actice ID: 0001 Gwen verdugo, [facility] 15:54:15 Gestatio n period, 39 weeks [id number] Completed 201606/17/2020 39 weeks gestatio n of pregnanc y;Practi ce ID: 0001 Gwen verdugo, [facility] 15:53:36 Sexual function painful Completed 201706/17/2020 Dyspareu dipesh;Sidney rded Elsewher e: No Locat ion: [facility] S ource: EHR Husbandry Person huy: N Practi ce ID: 0001 Sky lable Time: 01:45:00 PM Gwen Danielle [facility] 15:54:13 Evaluati on finding Completed 201706/17/2020 Unsp abnormal cytolog findings in specmn from cervix uteri;Re corded Elsewher e: No Locat ion: [facility] S ource: EHR Husbandry Person huy: N Practi ce ID: 0001 Sky lable Time: 11:13:55 AM Gwen Lolis verdugo [facility] 15:53:11 Amenorrh ea [id number] Completed 201506/17/2020 Amenorrh ea;Recor ded Elsewher e: No Locat ion: Jackie butler [facility] S ource: EHR Husbandry Person huy: N Nardati ce ID: 0001 Sky lable Time: 04:15:00 PM Gwen Danielle null, [facility] 15:53:01 Pregnanc y 01450405 Completed 202002/01/2021 Marybeth Singleton hl null, [facility] 15:43:51 Hypothyr oidism 98615382 Completed Increase d to 137mcg 11/04- rpt 1 month Marybeth Singleton hl null, [facility] 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 Marybeth Singleton hl null, [facility] 15:43:46 Cholesta sis of pregnanc y 072391621 Completed increase ursodiol & vit d, antenata l testing at 32 weeks per MFM - del between 38-39wks Marybeth Singleton hl null, [facility] 15:43:46 Past pregnanc y history of gestatio nal hyperten dasha 172561065 Completed ASA Marybeth Singleton hl null, [facility] 15:43:46 Asthma 551681476 Active 2023 Gwen Danielle null, [facility] 4 16:30:17 Migraine 50400158 Active 2023 Gwne Danielle null, [facility] 16:30:25 Problem Notes None recorded. Procedures Surgical History Date Name Laterality Status Provider Name and Address Organization Details Recorded Time 01/29/20 24 Date of Last Pap Smear completed [facility] 05/02/2024 09:44:49 11/26/19 19 Dilation and Curettage completed [facility] 10/21/2019 22:39:14 10/04/19 18 Colposcopy completed [facility] 06/17/2020 19:28:24 10/04/19 18 endocervical curettage completed [facility] 06/17/2020 19:44:19 04/14/19 13 Colposcopy completed [facility] 06/17/2020 19:33:20 04/29/19 11 Colposcopy completed [facility] 06/17/2020 19:38:14 06/23/19 08 Colposcopy completed [facility] 06/17/2020 19:33:48 Imaging Results Imaging Date Name Status LastModified by Organization Details LastModified Time 11/22/2022 US, pelvis completed [email or web address] [place] [address], [place], [address], 11/22/2022 15:49:46 11/22/2022 US, [facility]vaginal [email or web address] [address], [place], [address], 11/22/2022 15:49:37 11/22/2022 US, pelvis completed [email or web address] [address], [place], [address], 11/23/2022 16:30:04 04/16/2024 US, pelvis completed [email or web address] [place] [address], [place], [address], 04/16/2024 09:59:54 04/16/2024 US, transvaginal completed [email or web address] Jackie butler [address], [place], [address], 04/16/2024 10:00:05 04/16/2024 US, pelvis completed [address], [place], [address], 04/21/2024 10:36:40 Procedure Notes None recorded. Medical [...] Prescrib ed Elsewher e: No [facility] od[facility] By: [email or web address] z Encoun [...] Prescrib ed Elsewher e: No Locat ion: [facility] odify By: [email or web address] Bey r DateTime : [...] Prescrib ed Elsewher e: No Locat ion: [facility] odify By: [email or web address] Maida r DateTime : [...] Bishop e: No Locat ion: Jackie butler [facility] odify By: gabbi mcgee DateTime : [...] Elsewher e: Yes Loca tion: [place] carrie [facility] odify By: pola feng DateTime : [...] Prescrib ed Elsewher e: No [facility] By: gabbi mcgee DateTime : 06/12/19 18 08:33:19 AM Not Available Not Available Not Available FeroSul 325 mg (65 mg iron) tablet TAKE 1 TABLET ORALLY DAILY 01/28 completed Not Available Not Available Not Available Tirosint 50 mcg capsule take 1 capsule by oral route every day 01/25 completed Prescrib ed Elsewher e: Yes Loca tion: [facility] odify By: pola feng DateTime : 04/08/19 [...] completed Not Available Not Available Not Available [facility] ODT 75 mg disintegr ating tablet active Not Available Not Available Not Available [employer] [facility] ODT 05/02 completed Not Available Not Available Not Available Vitals Date Recorded Body height Body mass index (BMI) Body weight Systolic blood pressure Diastolic blood pressure Provider Name and Address Organization Details Last Updated DateTime 01/29/2024 167.64 cm 31.3 kg/m2 22332.92 g 131 mm[Hg] 85 mm[Hg] Gwen Danielle [facility] 4 16:29:07 Date Recorded Body height Body mass index (BMI) Body weight Systolic blood pressure Diastolic blood pressure Provider Name and Address Organization Details Last Updated DateTime 05/02/2024 167.64 cm 30 kg/m2 78404.18 g 125 mm[Hg] 83 mm[Hg] Gwen Danielle [facility] 5 09:44:18 Date Recorded Body height Body mass index (BMI) Body weight Systolic blood pressure Diastolic blood pressure Provider Name and Address Organization Details Last Updated DateTime 06/19/2024 167.64 cm 30.5 kg/m2 73217.96 g 127 mm[Hg] 65 mm[Hg] Krystyna Hudson [facility] 5 16:27:42 Social History Question Answer Notes LastModified by Organizat ion Details LastModified Time Tobacco Smoking Status Never Smoker Gwen Danielle [facility] 10/19/2022 16:53:54 Do You Have An Advance Directive? No Information not available 06/17/2020 What Is Your Level Of Alcohol Consumption? Occasional Information not available 10/21/2019 Are You Blind Or Do You Have Difficulty Seeing? No [email or web address] Information not available 06/17/2020 What Is Your Level Of Caffeine Consumption? None [email or web address] Information not available 10/19/2022 How Much Tobacco Do You Chew? None Information not available 06/17/2020 In The 14 Days Before Symptom Onset, Have You Had Close Contact With A Laboratory-confir med COVID-19 While That Case Was Ill? No [email or web address] Information not available 06/17/2020 In The 14 Days Before Symptom Onset, Have You Had Close Contact With A Person Who Is Under Investigation For COVID-19 While That Person Was Ill? No [email or web address] Information not available 06/17/2020 Have You Been To An Area Known To Be High Risk For COVID-19? No [email or web address] Information not available 10/19/2022 Are You Deaf Or Do You Have Serious Difficulty Hearing? No [email or web address] Information not available 06/17/2020 What Type Of Diet Are You Following? REGULAR [email or web address] Information not available 06/17/2020 Do You Or Have You Ever Used E-cigarettes Or Vape? Never Used Electronic Cigarettes [email or web address] Information not available 10/19/2022 What Is The Highest Grade Or Level Of School You Have Completed Or The Highest Degree You Have Received? 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 Yes [email or web address] Information not available 06/17/2020 What Was The Date Of Your Most Recent Tobacco Screening? 05/02/2024 [email or web address] Information not available 05/02/2024 Have You Ever Been Counseled For Unhealthy Alcohol Use? No [email or web address] Information not available 10/19/2022 Do You Use Protection During Sex? No [email or web address] Information not available 06/17/2020 Do You Use Your Seat Belt Or Car Seat Routinely? Yes [email or web address] Information not available 06/17/2020 Do You Have Smoke And Carbon Monoxide Detectors In Your Home? Yes [email or web address] Information not available 06/17/2020 Do You Or Have You Ever Used Smokeless Tobacco? Never Used Smokeless Tobacco [email or web address] Information not available 10/19/2022 How Much Tobacco Do You Smoke? No [email or web address] Information not available 10/21/2019 Do You Feel Stressed (tense, Restless, Nervous, Or Anxious, Or Unable To Sleep At Night)? [id number] [email or web address] Information not available 10/19/2022 Do You Use Any Illicit Or Recreational Drugs? No [email or web address] Information not available 06/17/2020 Do You Use Sunscreen Routinely? Yes [email or web address] Information not available 06/17/2020 Has Tobacco Cessation Counseling Been Provided? No [email or web address] Information not available 10/19/2022 Have You Used IV Drugs? No Information not available 06/17/2020 Do You Or Have You Ever Used Any Other Forms Of Tobacco Or Nicotine? No [email or web address] Information not available 10/19/2022 Sex: Unknown Functional Status Question Answer Note LastModified by Organizat ion Details LastModified Time Do you have difficulty walking or climbing stairs? No [email or web address] Information not available 10/19/2022 Are you able to walk? YESWOREST [email or web address] Information not available 06/17/2020 Are you able to care for yourself? Yes [email or web address] Information not available 10/19/2022 Do you have difficulty dressing or bathing? No [email or web address] Information not available 10/19/2022 What is your exercise level? Occasional [email or web address] Information not available 10/21/2019 Mental Status None recorded. Family History Relationship Description Onset Age of this Age Resolved Age Notes LastModified by Organization Details LastModified Time Paternal Grandmother Diabetes mellitus [email or web address] Not available 10/20 22:35:03 Paternal Grandmother Congenital heart disease [email or web address] Not available 2022 16:43:06 Paternal Grandmother Heart disease [email or web address] Not available 10/20 22:36:51 Maternal Uncle Diabetes mellitus [email or web address] Not available 10/20 22:35:03 Mother Asthma [email or web address] Not available 10/21/2019 22:35:15 Mother Disorder of thyroid gland [email or web address] Not available 10/20 22:35:48 Paternal Uncle Disorder of thyroid gland [email or web address] Not available 10/20 22:35:48 Paternal Grandfather Malignant neoplasm of lung Not available 10/20 22:36:04 Paternal Grandfather Heart disease [email or web address] Not available 06/17 15:52:00 Sister Asthma [email or web address] Not available 10/21/2019 22:37:00 Sister Genetic disease Not available 2022 16:43:06 Maternal Grandfather Heart disease [email or web address] Not available 06/17 15:52:00 Medical History Condition [...] SNOMED-CT Code Diagnosis ICD10 Code Diagnosis Note [id number] Natalie Morris CNM [place] [address] [address] 10/19/2019 11:43:08 10/19/2019 12:13:23 Discharge from nipple [id number] N64.52 await lab results and culture, f/u wwe discussed slynd as bc option if desires, may warp picker samples [id number] Natalie Morris CNM [place] [address],[place] [address] 06/17/2020 14:49:17 06/17/2020 16:06:42 Amenorrhea 11033827 N91.2 Gynecologi c examination 35715698 Z01.419 [id number] Marvin Strauss MD [place] [address],[place] [address] 06/17/2020 14:45:39 06/18/2020 23:53:24 [id number] MD Jose Mcfarlane [address] [address],[place] [address] 07/08/2020 09:20:14 07/08/2020 09:59:44 screening [id number] Z36.82 [id number] Marvin Strauss MD [place] [address],[place] [address] 1 07/08/2020 09:20:58 07/08/2020 10:57:22 Routine care [id number] Z34.91 [id number] Natalie Morris [facility] [address],[place] [address] 1 08/05/2020 11:35:15 08/05/2020 14:04:33 Routine care 353392062 Z34.92 [id number] Marvin Strauss MD [place] [address],[place] [address] 1 09/02/2020 11:47:14 09/03/2020 09:51:26 Cholestasis of 407823828 O26.619 [id number] Marvin Strauss MD [place] [address],[place] [address] 1 09/26/2020 17:24:59 09/27/2020 14:52:26 Cholestasis of 354859668 O26.619 [id number] [facility] [address],[place] [address] 1 10/28/2020 13:51:27 10/28/2020 15:59:52 Routine care 779526894 Z34.92 [id number] MD Jose Mcfarlane [address],[place] [address] 1 10/28/2020 13:50:34 10/28/2020 15:33:29 Cholestasis of [id number] O26.619 Z3A.27 [id number] MD Jose Mcfarlane [address],[place] [address] 1 11/10/2020 12:38:09 11/10/2020 14:29:25 Routine care 936861069 Z34.91 [id number] Marvin Strauss MD [place] [address],[place] [address] 1 11/10/2020 13:47:14 11/10/2020 14:27:50 Reduced movement 532664890 O36.8199 [id number] Natalie Morris [facility] [address],[place] [address] 1 11/25/2020 16:20:37 11/28/2020 20:33:23 Routine care 482420771 Z34.92 [id number] Marvin Strauss MD [place] [address],[place] [address] 1 11/29/2020 15:07:11 11/29/2020 19:23:20 Cholestasis of 450817575 O26.619 Z3A.32 [id number] Marvin Strauss MD [place] [address],[place] [address] 1 11/29/2020 15:07:39 11/29/2020 16:31:25 Cholestasis of 400572509 O26.619 Z3A.32 [id number] MD Jose Mcfarlane [address],[place] [address] 1 11/29/2020 15:08:07 11/29/2020 17:18:40 Routine care 714240911 Z34.91 [id number] MD Jose Mcfarlane [address],[place] [address] 1 12/06/2020 16:46:08 12/06/2020 17:25:43 Cholestasis of [id number] O26.619 Z3A.32 [id number] [facility] [address],[place] [address] 1 12/09/2020 15:45:30 12/09/2020 16:58:22 Routine care 261954921 Z34.92 [id number] Marvin Strauss MD [place] [address],[place] [address] 1 12/09/2020 15:44:46 12/09/2020 16:34:16 Cholestasis of 438123570 O26.619 Z3A.32 [id number] MD Jose Mcfarlane [address],[place] [address] 1 12/13/2020 16:39:50 12/13/2020 17:49:27 Cholestasis of [id number] O26.619 Z3A.32 [id number] Marvin Strauss MD [place] [address],[place] [address] 1 12/16/2020 14:53:35 12/16/2020 15:49:06 Cholestasis of 654992099 O26.619 Z3A.32 [id number] Marvin Strauss MD [place] [address],[place] [address] 1 12/16/2020 14:56:37 12/16/2020 16:50:18 Routine care 764133804 Z34.91 [id number] [facility] [address],[place] [address] 1 12/23/2020 14:52:21 12/23/2020 16:36:20 Routine care 860243328 Z34.92 [id number] Marvin Strauss MD [place] [address],[place] [address] 1 12/20/2020 16:47:51 12/21/2020 16:10:53 Cholestasis of [id number] O26.619 Z3A.32 [id number] Marvin Strauss MD [place] [address],[place] [address] 1 12/23/2020 14:51:18 12/23/2020 15:47:27 Cholestasis of 926151377 O26.619 Z3A.32 [id number] Marvin Strauss MD [place] [address],[place] [address] 1 12/27/2020 16:40:13 12/27/2020 17:51:22 Cholestasis of 043127678 O26.619 Z3A.32 [id number] Natalie Morris, [facility] [address],[place] [address] 1 12/30/2020 14:46:09 12/31/2020 11:42:23 Routine care 191194373 Z34.92 [id number] Christina Schultz MD [place] [address],[place] [address] 1 12/30/2020 14:45:34 12/30/2020 15:53:51 Cholestasis of 178702522 O26.619 Z3A.32 11603 Christina Schultz MD [place] [address],[place] [address] 1 01/03/2021 16:41:45 01/03/2021 18:04:41 Cholestasis of [id number] O26.619 Z3A.32 [id number] Marvin Strauss MD [place] [address],[place] [address] 1 01/06/2021 14:55:58 01/06/2021 21:11:15 [id number] MD Jose Mcfarlane [address],[place] [address] 1 01/06/2021 14:53:27 01/06/2021 15:39:54 Cholestasis of 625689495 O26.619 Z3A.32 [id number] Marvin Strauss MD [place] [address],[place] [address] 1 01/06/2021 14:54:09 01/06/2021 15:59:46 Cholestasis of 399729405 O26.619 Z3A.37 39173 Shirley Rmdaniel [facility] [address],[place] [address] 01/10/2021 13:45:47 01/10/2021 16:57:53 Routine care 111176801 Z34.93 [id number] Marvin Strauss MD [place] [address],[place] [address] 1 01/10/2021 13:51:55 01/10/2021 15:11:27 Cholestasis of 870166885 O26.619 Z3A.37 [id number] Natalie Morris [facility] [address],[place] [address] 1 02/10/2021 14:37:29 02/10/2021 15:49:52 care 102835563 Z39.2 Anxiety 89975773 F41.9 [id number] Natalie Morris [facility] [address] [place] [address] 10/06/2021 11:42:58 10/09/2021 16:32:23 Hypothyroidism 39275414 E03.9 Gynecologi c examination 59174269 Z01.419 Z11.51 [id number] Natalie Morris [facility] [address],[place] [address] 1 10/19/2022 16:39:24 10/19/2022 17:26:10 Gynecologic examination 00175798 Z01.419 Z11.51 Dysmenorrhea 073587657 N 94.[address] strauss, pt desires hysterecto my [id number] Marvin Strauss MD [place] [address],[place] [address] 1 11/22/2022 13:49:36 11/22/2022 15:07:10 Dysmenorrhea 511403121 N94.6 [id number] [facility] ButlerJACKIE [facility] [address],[place] [address] 01/29/2024 16:06:45 01/29/2024 16:49:46 Menorrhagia 830259906 N92.0 Dysmenorrhea 105560745 N 94.[address] strauss, pt desires hysterecto mywill order [id number] Marvin Strauss MD [place] [address],[place] [address] 04/16/2024 09:16:37 04/16/2024 09:44:44 Menorrhagia 336624696 N92.0 [id number] Marvin Strauss MD [place] [address],[place] [address] 1 05/02/2024 09:20:28 05/04/2024 10:35:58 Menorrhagia 962788176 N92.0 This patient is a 34-year-ol d [...] is risk of hemorrhage and infection. Dyspareunia 78537493 N94 .10 Pain in pelvis 57320896 R10.2 [id number] Marvin Strauss MD [place] [address] [address] 06/19/2024 16:08:16 06/20/2024 11:32:16 Menorrhagia 043077298 N92.0 This patient is a 34-year-ol d [...] Bustillos Member ID Guarantor Name 11/22/2022 1 [facility] (MEDICAID HMO) [id number] Juan Kaur [id number] Juan Kaur 01/29/2024 1 UMR [id number] Juan Kaur [id number] Juan Kaur 04/16/2024 1 UMR [id number] Juan Kaur [id number] Juan Kaur 05/02/2024 1 UMR [id number] Juan Kaur [id number] Juan Kaur 06/19/2024 1 UMR [id number] Juan Kaur [id number] Juan Kaur Notes Date Note Type Note [...] smearsNotes:pt interested in hysterectomy Natalie Morris CNM [address], [place], [address], [facility] 01/29/2024 16:49:22 05/02/2024 text/html This patient [...] infection. Marvin Strauss MD [address], [place], [address], [facility] 05/02/2024 12:57:38 06/19/2024 text/html This patient [...] infection. Marvin Strauss MD [address], [place], [address], [facility] 06/19/2024 17:42:34 OBGyn Episode Ob Episode Information Episode Created Date Number of Fetuses Patient Bloodtype Patient rh Status Prepregnancy Weight lbs Domestic Partner Domestic Partner Phone Father Name Home Management Supervisor Status 10/21/19 20 1 CLOSED Fetus Data [...] Domestic Partner Domestic Partner Phone Father Name Home Management Supervisor Status 10/21/19 20 1 CLOSED Fetus Data [...] Domestic Partner Domestic Partner Phone Father Name Home Management Supervisor Status 10/21/19 20 1 CLOSED Fetus Data [...] Domestic Partner Domestic Partner Phone Father Name Home Management Supervisor Status 07/09/19 21 1 O Positive 200 CLOSED Fetus Data First Name Last Name Admitted to NICU Weight (g) Sex Living Outcome Pediatric Complications Fetus ID Race Codes Race Delivery Type 3061.74 6 M true Full Term 9849 Vaginal Delivery Problems Problem Notes borderline high bile acids - 8:15AM U/S only [facility] office - THIS WAS CANCELED, pt requested to just do u/s here 11/30 Pt request SP for delivery Problem Name Start Date End Date Resolution Snomed Code Not e Hypothyroidism 70555049 Incre ased to 137mcg 11/04- rpt 1 month 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 Cholestasis of 453010221 increase ursodi ol & vit d, testing at 32 weeks per [facility] - del between 38-39wks Past history of gestational hypertension 691155736 ASA Sylvester Calculation Initial Sylvester Date Initial [...] Gestation 0 [email or web address] 07/08/2020 01/22/20 21 0 Pre- Flowsheet Flowsheet Date 07/08/2020 Flanagan Score Blood Edema Fundus Height Fundus Units Glucose Ketones Leukocytes Nitrite Labor Signs Protein Cervic Dilation Cervic Effacement Cervic Station 12 Type Weight in lbs Pre/Post Dialysis Refused Weight 199.939001049912 BP Diastolic BP Location Tested BP Systolic [...] Weight in lbs Pre/Post Dialysis Refused Weight 198.721817058235 BP Diastolic BP Location Tested BP Systolic BP Type 83 R arm 124 sitting Fetus Heart Rate Present A 156 Fetus Movement A No Comments stress at home declines coun seling or meds, anatomy at [facility] in 4 weeks, not feeling well will order extra labs, precautions reviewed, Flowsheet Date 09/02/2020 Flanagan Score Blood Edema Fundus Height Fundus Units Glucose Ketones Leukocytes Nitrite Labor Signs Protein Cervic Dilation Cervic Effacement Cervic Station trace Type Weight in lbs Pre/Post Dialysis Refused Weight 198.250296384143 BP Diastolic BP Location Tested BP Systolic [...] Weight in lbs Pre/Post Dialysis Refused Weight 201.142355651390 BP Diastolic BP Location Tested BP Systolic [...] Weight in lbs Pre/Post Dialysis Refused Weight 202.083604064843 BP Diastolic BP Location Tested BP Systolic [...] Weight in lbs Pre/Post Dialysis Refused Weight 202.477895629789 BP Diastolic BP Location Tested BP Systolic [...] Weight in lbs Pre/Post Dialysis Refused Weight 203.14886459126 BP Diastolic BP Location Tested BP Systolic [...] Weight in lbs Pre/Post Dialysis Refused Weight 204.147068474505 BP Diastolic BP Location Tested BP Systolic [...] Weight in lbs Pre/Post Dialysis Refused Weight 202.450928039333 BP Diastolic BP Location Tested BP Systolic [...] Weight in lbs Pre/Post Dialysis Refused Weight 200.707185642325 BP Diastolic BP Location Tested BP Systolic [...] Weight in lbs Pre/Post Dialysis Refused Weight 203.01144800850 BP Diastolic BP Location Tested BP Systolic [...] Weight in lbs Pre/Post Dialysis Refused Weight 203.51776239688 BP Diastolic BP Location Tested BP Systolic BP Type 85 138 Fetus Heart Rate Present Fetus Movement Comments NST only. ZEYAD, RNRegular cont ractions on NST. Cervix same [...] Weight in lbs Pre/Post Dialysis Refused Weight 203.15005141061 BP Diastolic BP Location Tested BP Systolic [...] Weight in lbs Pre/Post Dialysis Refused Weight 201.578942129912 BP Diastolic BP Location Tested BP Systolic [...] At Estimated Date of Delivery false Thalassemia (Turkmen, Pashto, Mediterranean, Or Background): MCV < 80 false Neural Tube Defect (Meningom yelocele, Spina Bifida, Or Anencephaly) false Congenital Heart Defect false Down Syndrome false Terrence-Sachs (eg, Voodoo, Cajun, Colombian-[place]) f alse Shira Disease false Sickle Cell Disease Or Trait () false Hemophilia Or Other Blood Disorders false Muscular Dystrophy false Cystic Fibrosis false Habersham's Chorea false Intellectual Disability/Autism false If Yes, [...] 1 Induce d Regional-Ep idural 38.4 false Natalie Morris CNDallin Cholestas is, Gbs+ Discharge Information Feeding Method Contraceptive Method Maternal HG B and HCT Levels
--- OUTSIDE RECORDS SUMMARY | 2024-06-26 00:53 | XMS_ITS | Clinical Summary ---
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 Gender Identity Female 01/31/2023 11:27 AM INSULATION POWER UNIT TENDER Sexual Orientation Not on file Obstetrics History Last Filed Vital Signs Vital Sign Reading Time Taken Comments Blood Pressure 123/85 05/07/2023 11:25 AM CDT Pulse 92 05/07/2023 11:25 AM CDT Temperature 36.6 C (97.9 F) 03/22/2023 10:18 AM INSULATION POWER UNIT TENDER Respiratory Rate 16 03/22/2023 10:18 AM INSULATION POWER UNIT TENDER Oxygen Saturation 98% 03/22/2023 12:30 PM INSULATION POWER UNIT TENDER Inhaled Oxygen Concentration - - Weight 87.1 [...] to complete this topic Insurance Care Teams Music Industry Intern Relationship Specialty Start Date End Date Paul Quiñonez MD [address] [address] PCP - General 02/02/22 Paul Quiñonez MD [address] [address] Referring Physician Family Medicine 09/25/22
--- OUTSIDE RECORDS SUMMARY | 2024-06-26 00:53 | XMS_ITS | CONTINUITY OF CARE DOCUMENT ---
Author Name merced blackwood Address Unknown Organization [facility] Address [address] [place] [address] [address] [place] [address] Phone [phone] Care Team Providers Care Yacht Builder Name Role Phone Nic TENORIO, Abby Unavailable [employer] Unavailable [phone] [employer] [place] Unavailable [phone] PROBLEMS Condition Status Date Provider Notes Family [...] In-person encounter Office Visit Abby Lucero MD [place] [facility] Family History Coronary Heart Disease female [...] blood pressure, systolic 116 mm[Hg] Dac ia Douglas oxygen saturation, oximetry 93 % Renea Maxi [...] Payer name Policy type / Coverage type [place] red green party ID HUMA[employer] PPO O [id number] ADVANCE DIRECTIVES Name Date DISCUSSED - NO DECISION MADE TREATMENT PLAN Date Name Performer Cardiology New Patient Abby latham MD Cardiology New Patient Abby latham MD Cardiology New Patient Abby latham MD Cardiology New Patient Abby latham MD Date Name DLCO - 81218 FRC - 93168 FVC - 57137 X-Ray, Chest - Routi ne Stress Routine HISTORY OF PROCEDURES Procedure Date Procedure Name Provider Procedure Notes S tatus Stress EKG Doron Lewis MD complete d
--- OUTSIDE RECORDS SUMMARY | 2024-06-26 00:53 | XMS_ITS | Clinical Summary ---
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
--- OUTSIDE RECORDS SUMMARY | 2024-06-26 00:53 | XMS_ITS | Data Portability ---
Author Organization [place] - [facility] [employer], Main Office Address [address] [place] [address] Care Team Providers Care Thoracic Medicine Physician Name Role Phone ROZINA COATS Primary Care Provider Assessment No assessment recorded. Plan of Treatment Reminders Order Date Submit Date Provider Last Modified By Organization Details Last Modified Time Details Appointments None recorded. Lab igg subclasses 1+2+3+4, serum 2022 023 [email or web address] 25 [employer] [facility], [address] [address], [place], [address], 09:46:18 Referral None recorded. Procedures None recorded. [...] (D1) IgE 0.24 kU/L high Not Available [facility] [address] [address], [place], [address], 06/12/2022 18:28:37 06/01/19 23 06/12/2022 RESPI RATOR Y ALLER GY PROFI LE REGIO N VIII class 0/1 Not Available [facility] [address] [place], [address], 06/12/2022 18:28:37 06/01/19 23 06/12/2022 RESPI RATOR Y ALLER GY PROFI LE REGIO N VIII dermatophago ides farinae (D2) IgE 0.30 kU/L high Not Available [address], [address], 06/12/2022 18:28:37 06/01/19 23 06/12/2022 RESPI RATOR Y ALLER GY PROFI LE REGIO N VIII class 0/1 Not Available [address], [address], 06/12/2022 18:28:37 06/01/19 23 06/12/2022 RESPI RATOR Y ALLER GY PROFI LE REGIO N VIII penicillium notatum (M1) IgE <0.10 kU/L normal Not Available [address], [address], 06/12/2022 18:28:37 06/01/19 23 06/12/2022 RESPI RATOR Y ALLER GY PROFI LE REGIO N VIII class 0 Not Available [address], [address], 06/12/2022 18:28:37 06/01/19 23 06/12/2022 RESPI RATOR Y ALLER GY PROFI LE REGIO N VIII cladosporium herbarum (M2) IgE <0.10 kU/L normal Not Available [address], [address], 06/12/2022 18:28:37 06/01/19 23 06/12/2022 RESPI RATOR Y ALLER GY PROFI LE REGIO N VIII class 0 Not Available [address], [address], 06/12/2022 18:28:37 06/01/19 23 06/12/2022 RESPI RATOR Y ALLER GY PROFI LE REGIO N VIII aspergillus fumigatus (M3) IgE <0.10 kU/L normal Not Available [facility] [address] [address] [address] , [place], [address], 06/12/2022 18:28:37 06/01/19 23 06/12/2022 RESPI RATOR Y ALLER GY PROFI LE REGIO N VIII class 0 Not Available [address] [address] [place], [address], 06/12/2022 18:28:37 06/01/19 23 06/12/2022 RESPI RATOR Y ALLER GY PROFI LE REGIO N VIII alternaria alternata (M6) IgE <0.10 kU/L normal Not Available [address] [address] [place], [address], 06/12/2022 18:28:37 06/01/19 23 06/12/2022 RESPI RATOR Y ALLER GY PROFI LE REGIO N VIII class 0 Not Available [address] [address] [facility] [place], [address], 06/12/2022 18:28:37 06/01/19 23 06/12/2022 RESPI RATOR Y ALLER GY PROFI LE REGIO N VIII CAT dander (E1) IgE <0.10 kU/L normal Not Available [address] [address] [facility] [place], [address], 06/12/2022 18:28:37 06/01/19 23 06/12/2022 RESPI RATOR Y ALLER GY PROFI LE REGIO N VIII class 0 Not Available [address] [address] [place], [address], 06/12/2022 18:28:37 06/01/19 23 06/12/2022 RESPI RATOR Y ALLER GY PROFI LE REGIO N VIII dog dander (E5) IgE <0.10 kU/L normal Not Available [address] [address] [place], [address], 06/12/2022 18:28:37 06/01/19 23 06/12/2022 RESPI RATOR Y ALLER GY PROFI LE REGIO N VIII class 0 Not Available [address], [address], 06/12/2022 18:28:37 06/01/19 23 06/12/2022 RESPI RATOR Y ALLER GY PROFI LE REGIO N VIII cockroach (I6) IgE 0.56 kU/L high Not Available [address], [address], 06/12/2022 18:28:37 06/01/19 23 06/12/2022 RESPI RATOR Y ALLER GY PROFI LE REGIO N VIII class 1 Not Available [address], [address], 06/12/2022 18:28:37 06/01/19 23 06/12/2022 RESPI RATOR Y ALLER GY PROFI LE REGIO N VIII maple (box elder) (T1) IgE 0.29 kU/L high Not Available [address], [address], 06/12/2022 18:28:37 06/01/19 23 06/12/2022 RESPI RATOR Y ALLER GY PROFI LE REGIO N VIII class 0/1 Not Available [address], [address], 06/12/2022 18:28:37 06/01/19 23 06/12/2022 RESPI RATOR Y ALLER GY PROFI LE REGIO N VIII mountain cedar (T6) IgE 0.24 kU/L high Not Available [address], [address], 06/12/2022 18:28:37 06/01/19 23 06/12/2022 RESPI RATOR Y ALLER GY PROFI LE REGIO N VIII class 0/1 Not Available [facility] [address] [place], [address], 06/12/2022 18:28:37 06/01/19 23 06/12/2022 RESPI RATOR Y ALLER GY PROFI LE REGIO N VIII walnut tree (T10) IgE 0.16 kU/L high Not Available [facility] [address] [address] [place], [address], 06/12/2022 18:28:37 06/01/19 23 06/12/2022 RESPI RATOR Y ALLER GY PROFI LE REGIO N VIII class 0/1 Not Available [facility] [address], [address], 06/12/2022 18:28:37 06/01/19 23 06/12/2022 RESPI RATOR Y ALLER GY PROFI LE REGIO N VIII sycamore (T11) IgE <0.10 kU/L normal Not Available [address], [address], 06/12/2022 18:28:37 06/01/19 23 06/12/2022 RESPI RATOR Y ALLER GY PROFI LE REGIO N VIII class 0 Not Available [address], [address], 06/12/2022 18:28:37 06/01/19 23 06/12/2022 RESPI RATOR Y ALLER GY PROFI LE REGIO N VIII cottonwood (T14) IgE <0.10 kU/L normal Not Available [facility] [address], [address], 06/12/2022 18:28:37 06/01/19 23 06/12/2022 RESPI RATOR Y ALLER GY PROFI LE REGIO N VIII class 0 Not Available [facility] [address], [address], 06/12/2022 18:28:37 06/01/19 23 06/12/2022 RESPI RATOR Y ALLER GY PROFI LE REGIO N VIII white chris (T15) IgE <0.10 kU/L normal Not Available [address], [address], 06/12/2022 18:28:37 06/01/19 23 06/12/2022 RESPI RATOR Y ALLER GY PROFI LE REGIO N VIII class 0 Not Available [address], [address], 06/12/2022 18:28:37 06/01/19 23 06/12/2022 RESPI RATOR Y ALLER GY PROFI LE REGIO N VIII oak (T7) IgE <0.10 kU/L normal Not Available [address], [address], 06/12/2022 18:28:37 06/01/19 23 06/12/2022 RESPI RATOR Y ALLER GY PROFI LE REGIO N VIII class 0 Not Available [address], [address], 06/12/2022 18:28:37 06/01/19 23 06/12/2022 RESPI RATOR Y ALLER GY PROFI LE REGIO N VIII elm (T8) IgE 0.28 kU/L high Not Available [address], [address], 06/12/2022 18:28:37 06/01/19 23 06/12/2022 RESPI RATOR Y ALLER GY PROFI LE REGIO N VIII class 0/1 Not Available [address], [address], 06/12/2022 18:28:37 06/01/19 23 06/12/2022 RESPI RATOR Y ALLER GY PROFI LE REGIO N VIII hickory/peca n tree (T22) IgE <0.10 kU/L normal Not Available [address] [address] [place], [address], 06/12/2022 18:28:37 06/01/19 23 06/12/2022 RESPI RATOR Y ALLER GY PROFI LE REGIO N VIII class 0 Not Available [address] [address] [place], [address], 06/12/2022 18:28:37 06/01/19 23 06/12/2022 RESPI RATOR Y ALLER GY PROFI LE REGIO N VIII white mulberry (T70) IgE <0.10 kU/L normal Not Available [address], [address], 06/12/2022 18:28:37 06/01/19 23 06/12/2022 RESPI RATOR Y ALLER GY PROFI LE REGIO N VIII class 0 Not Available [address], [address], 06/12/2022 18:28:37 06/01/19 23 06/12/2022 RESPI RATOR Y ALLER GY PROFI LE REGIO N VIII bermuda grass (g2) IgE <0.10 kU/L normal Not Available [address], [address], 06/12/2022 18:28:37 06/01/19 23 06/12/2022 RESPI RATOR Y ALLER GY PROFI LE REGIO N VIII class 0 Not Available [address] [address] [place], [address], 06/12/2022 18:28:37 06/01/19 23 06/12/2022 RESPI RATOR Y ALLER GY PROFI LE REGIO N VIII michelle grass (g6) IgE <0.10 kU/L normal Not Available [address], [address], 06/12/2022 18:28:37 06/01/19 23 06/12/2022 RESPI RATOR Y ALLER GY PROFI LE REGIO N VIII class 0 Not Available [address], [address], 06/12/2022 18:28:37 06/01/19 23 06/12/2022 RESPI RATOR Y ALLER GY PROFI LE REGIO N VIII common ragweed (short) (W1) IgE 0.61 kU/L high Not Available [address] [address] [place], [address], 06/12/2022 18:28:37 06/01/19 23 06/12/2022 RESPI RATOR Y ALLER GY PROFI LE REGIO N VIII class 1 Not Available [address], [address], 06/12/2022 18:28:37 06/01/19 23 06/12/2022 RESPI RATOR Y ALLER GY PROFI LE REGIO N VIII rough pigweed (W14) IgE <0.10 kU/L normal Not Available [address], [address], 06/12/2022 18:28:37 06/01/19 23 06/12/2022 RESPI RATOR Y ALLER GY PROFI LE REGIO N VIII class 0 Not Available [address], [address], 06/12/2022 18:28:37 06/01/19 23 06/12/2022 RESPI RATOR Y ALLER GY PROFI LE REGIO N VIII anguillan thistle (W11) IgE <0.10 kU/L normal Not Available [address], [address], 06/12/2022 18:28:37 06/01/19 23 06/12/2022 RESPI RATOR Y ALLER GY PROFI LE REGIO N VIII class 0 Not Available [address], [place], [address], 06/12/2022 18:28:37 06/01/19 23 06/12/2022 RESPI RATOR Y ALLER GY PROFI LE REGIO N VIII rough castillo elder (W16) IgE <0.10 kU/L normal Not Available [facility] [address], [address], 06/12/2022 18:28:37 06/01/19 23 06/12/2022 RESPI RATOR Y ALLER GY PROFI LE REGIO N VIII class 0 Not Available [facility] [address], [address], 06/12/2022 18:28:37 06/01/19 23 06/12/2022 RESPI RATOR Y ALLER GY PROFI LE REGIO N VIII mouse urine proteins (E72) IgE <0.10 kU/L normal Not Available [facility] [address], [address], 06/12/2022 18:28:37 06/01/19 23 06/12/2022 RESPI RATOR Y ALLER GY PROFI LE REGIO N VIII class 0 Not Available [address], [address], 06/12/2022 18:28:37 06/01/19 23 06/12/2022 RESPI RATOR Y ALLER GY PROFI LE REGIO N VIII immunoglobul in E 63 kU/L <or=11 4 normal Not Available [facility] [address], [address], 06/12/2022 18:28:37 06/01/19 23 06/12/2022 INTER PRETA [...] cteri stics have been deter mined by [facility]. It has not been clear ed or appro thuy by the U.S. Food and Drug Admin istra tion. This assay has been valid ated pursu ant to the CLIA regul ation s and is used for clini ruddy purpo ses. Not Available [employer] [address] [address] [place], [address], 06/12/2022 18:28:39 06/01/19 23 06/12/2022 IMMUN OGLOB ULIN G SUBCL ASSES PANEL immunoglobul in g subclass 1 932 mg/dL 382-92 9 high Not Available [employer] [address] [address] [place], [address], 06/12/2022 18:28:39 06/01/19 23 06/12/2022 IMMUN OGLOB ULIN G SUBCL ASSES PANEL immunoglobul in g subclass 2 406 mg/dL 241-70 0 Not Available [employer] [address] [address] [place], [address], 06/12/2022 18:28:39 06/01/19 23 06/12/2022 IMMUN OGLOB ULIN G SUBCL ASSES PANEL immunoglobul in g subclass 3 59 mg/dL 22-178 Not Available [employer] [address] [address] [place], [address], 06/12/2022 18:28:39 06/01/19 23 06/12/2022 IMMUN OGLOB ULIN G SUBCL ASSES PANEL immunoglobul in g subclass 4 2.7 mg/dL 4.0-86 .0 low Not Available [address], [address], 06/12/2022 18:28:39 06/01/19 23 06/12/2022 IMMUN OGLOB ULIN G SUBCL ASSES PANEL immunoglobul in g, serum 1354 mg/dL 600-16 40 Not Available [address], [address], 06/12/2022 18:28:39 06/01/19 23 06/12/2022 EOSIN OPHIL COUNT (B) white blood cell count 10.0 thous and/u L 3.8-10 .8 normal Not Available [address], [address], 06/12/2022 18:28:40 06/01/19 23 06/12/2022 EOSIN OPHIL COUNT (B) absolute eosinophils 120 cells /uL 15-500 normal Not Available [address], [address], 06/12/2022 18:28:40 06/01/19 23 06/12/2022 EOSIN OPHIL COUNT (B) eosinophils 1.2 % normal Not Available [address], [address], 06/12/2022 18:28:40 06/01/19 23 06/12/2022 ALPHA -1-AN TITRY PSIN QN hfblp-[id number] trypsin qn 149 mg/dL 83-199 normal Not Available [address], [address], 06/12/2022 18:28:40 06/01/19 23 06/12/2022 ALPHA -1-AN TITRY PSIN (AAT) PHENO TYPE [id number]-6-jxlr trypsin (aat) phenotype SEE NOTE THIS PATIE [...] defic ient MZ pheno type. Not Available [facility] [address] [address] , [place], [address], 06/12/2022 18:28:41 06/01/19 23 06/12/2022 QUANT IFERO N(R)- TB GOLD PLUS, 1 TUBE quantiferon( R)-TB gold plus, 1 tube NEGATI VE negati ve normal Negat laureen test resul t. M. tuber culos is compl ex infec tion unlik dagoberto. Not Available [address], [address], 06/12/2022 18:28:41 06/01/19 23 06/12/2022 QUANT IFERO N(R)- TB GOLD PLUS, 1 TUBE nil 0.03 IU/mL normal Not Available [address], [address], 06/12/2022 18:28:41 06/01/19 23 06/12/2022 QUANT IFERO N(R)- TB GOLD PLUS, 1 TUBE mitogen-nil 9.85 IU/mL normal Not Available [address], [address], 06/12/2022 18:28:41 06/01/19 23 06/12/2022 QUANT IFERO N(R)- TB GOLD PLUS, 1 TUBE TB1-nil 0.00 IU/mL normal Not Available [address], [address], 06/12/2022 18:28:41 06/01/19 23 06/12/2022 QUANT IFERO [...] e refer to https ://ed ati on.qu ashleyPlanspot/f aq/FA Q204 (This link is being provi ded for infor mary davidson/ educa francia l purpo ses only. ) Not Available [facility] [address] [address] [place], [address], 06/12/2022 18:28:41 06/01/19 23 05/31/2022 XR, chest , 2 view No observ ation record ed. [address], [address], 06/07/2022 09:24:18 07/06/19 23 07/05/2022 metha choli ne chall enge* No observ ation record ed. [address], [address], 07/10/2022 12:08:57 Result Notes None recorded. Problems Name Problem SNOMED Code Status Onset Date Resolution Date Notes Provider Name and Address Organization Details Recorded Time Asthma 410409549 Active 2022 Not Available [facility] 3 20:39:08 Tachycardia 2010481 Active 2022 Not Available [facility] 3 20:39:08 Hypothyroidis m 56951022 Active 2018 Not Available [facility] 3 20:39:08 Dyspnea on exertion 25457331 Active 2022 Not Available [facility] 3 20:39:08 Chronic cough 24801658 Active 2022 Not Available [facility] 3 20:39:08 Immunoglobuli ns outside reference range 347951648 Active 2022 Yary Gabriel, UNIT REACTOR OPERATOR-BC [address] [facility], [address], [place], [address] , [facility] 3 10:30:34 Problem Notes None recorded. Procedures Surgical History None recorded. Imaging Results Imaging Date Name Status LastModified by Organization Details LastModified Time 05/31/2022 XR, chest, 2 view completed [address] [place] [address], [address], 06/07/2022 09:24:18 07/05/2022 methacholine challenge* completed [address] [place] [address], [address], 07/10/2022 12:08:57 Procedure Notes None recorded. Medical [...] % 98 % 120 /min 97.2 [degF] 64906.5 5 g 122 mm[Hg] 70 mm[Hg] Not Available [facility] 3 20:38:46 Date Recorded Body height Body mass index (BMI) Body weight Body temperature Heart rate Oxygen saturation Oxygen saturation in Arterial blood by Pulse oximetry Systolic blood pressure Diastolic blood pressure Provider Name and Address Organization Details Last Updated DateTime 3 167.64 cm 30.7 kg/m2 13026.5 5 g 98.3 [degF] 78 /min 97 % 97 % 122 mm[Hg] 74 mm[Hg] Indira Ariza MA [facility] [employer] [facility] 3 12:26:35 Date Recorded Body height Body mass index (BMI) Body weight Body temperature Heart rate Oxygen saturation Oxygen saturation in Arterial blood by Pulse oximetry Systolic blood pressure Diastolic blood pressure Provider Name and Address Organization Details Last Updated DateTime 3 167.64 cm 30.8 kg/m2 48376.1 4 g 98 [degF] 93 /min 96 % 96 % 122 mm[Hg] 60 mm[Hg] Martita Walsh [place] [employer] [facility] [employer] 3 10:04:57 Social History Question Answer Notes LastModified by Organizat ion Details LastModified Time Tobacco Smoking Status Never Smoker Martita Walsh [facility] [employer] [facility] [employer] 07/16/2022 10:06:02 What Is Your Level Of Alcohol Consumption? None [email or web address] Information not available 07/16/2022 What Is Your Level Of Caffeine Consumption? None [email or web address] Information not available 07/16/2022 Do You Have Any Pets? No [email or web address] Information not available 07/16/2022 Do You Use Any Illicit Or Recreational Drugs? No [email or web address] Information not available 07/16/2022 Do You Or Have You Ever Used Any Other Forms Of Tobacco Or Nicotine? No [email or web address] Information not available 07/16/2022 Sex: Unknown Functional Status None recorded. Mental Status None recorded. Family History Nothing Reported. Medical History No medical history recorded. Gynecological HistoryNo gynecological history recorded. Obstetrics History GPAL:G 0 P 0 0 0 0 Immunizations Vaccine Type Date Status Note Provider [facility] e and Address Organization Details Recorded Time Influenza, split virus, quadrivalent, preservative 8 completed Not Available [facility] 04/25/2022 20:40:07 Past Encounters Encounter ID Performer Location Encounter Start Date Encounter Closed Date Diagnosis/Indication Diagnosis SNOMED-CT Code Diagnosis ICD10 Code Diagnosis Note [id number] [facility] [address] [place] [address] 04/23/2022 00:00:00 04/23/2022 16:59:34 [id number] [facility] [address] [place] [address] 06/08/2022 12:18:21 06/08/2022 17:01:38 Asthma 492280071 J45.909 PFT completed with FEV1 85 and mild obstructiv e pattern notedCheck methacholi ne challenge - staff scheduled todaySympt oms consistent with asthmaCont inue Flovent with aerochambe rInstructe d on techniqueN ebulizer for PRN useRTC after testing completed Chronic cough 91515545 R 05.3 CXR WNL Dyspnea on exertion 6084 5006 R06.09 Awaiting labs from [facility] History of SARS-CoV-2 29 88552252 10308785 Z86.16 + February 2021 [id number] [facility] [address] [place] [address] 07/16/2022 09:55:09 07/16/2022 15:00:49 Asthma 422307583 J45.909 ACT 24PFT completed with FEV1 85 [...] for concerns Immunoglob ulins outside reference range 390968662 R89.4 IGG 1 elevatedIG G 4 low.Rechec k in 6 months Chronic cough 73270725 R 05.3 ResolvedCX R WNL Dyspnea on exertion 6084 5006 R06.09 Esosinophi ls, Alpha1, IGE, Quantifero n GOLD normal History of SARS-CoV-2 29 31143141 11202127 Z86.16 + February 2021 Health Concerns Section Related Observation LastModified by Organization Detai ls LastModified Time None Recorded Concern Status LastModified by Organization Details LastModified Time None Recorded Advance Directives Directive None Recorded Payers Encounter Date Sequence Insurance Name Policy Number Policy Bustillos Covered Member ID Bustillos Member ID Guarantor Name 06/08/2022 1 [facility] [id number] Juan Mayerson [id number] Juan Mayerson 07/16/2022 1 [facility] [id number] Juan Kaur [id number] Juan Kaur Notes Date Note Type Note [...] of clinical benefit from Flovent Yary Rios, UNIT REACTOR OPERATOR-BC [address] [facility], [facility] [address], [place], [address], [facility] 06/10/2022 15:14:58 07/16/2022 text/html Ms Vincent blanco today to follow [...] rashes, is following with PCM Yary Rios, [facility] [address] [facility], [facility] [address], [place], [address], [facility] 07/16/2022 12:51:50 OBGyn Episode No OBEpisode recorded.
--- NOTE | 2024-06-26 11:27 | WPDANESEPPF ---
Anes - Initial Pre Proc Eval Procedure: Operation Date: 06/26/24 12:00 Proposed Procedures p Robotic Assisted Hysterectomy with Bilateral Salpingectomy - Marvin Montez MD Date/Time: 06/26/24 11:27 Surgeon: Marvin Montez MD Pre Op Diagnosis: Menorrhagia Patient Data Age: 34 Gender: F Height: 1.68 m Weight: 84.83 kg Allergies Allergy/AdvReac Type Severity Reaction Status Date / Time No Known Allergies Allergy Verified 06/15/24 15:35 Home Medications ?Medication ?Instructions ?Recorded ?Confirmed ?Type fluticasone propionate 110 1 puff inhalation Q12H 08/21/22 06/15/24 History mcg/actuation HFA aerosol inhaler bupropion HCl 150 mg 24 hr tablet, 150 mg PO QAM #30 tabs 05/22/23 06/15/24 Rx extended release (Wellbutrin XL) levothyroxine 150 mcg tablet 150 mcg PO . q.a.m. #30 tabs 05/22/23 06/15/24 Rx cetirizine 10 mg tablet (All Day 10 mg PO DAILY PRN allergy 02/12/24 06/15/24 Rx Allergy (cetirizine)) symptoms #30 tabs rimegepant 75 mg disintegrating 75 mg PO ONCE PRN migraine 03/30/24 06/15/24 Rx tablet (Nurtec ODT) headache #15 tabs Patient hx anesthesia problems: none Family hx anesthesia problems: none Results Review: All pre-operative results and documents have been reviewed as part of the pre-operative evaluation. [facility] Past Medical History Medical History (Updated 05/26/24 @ 16:40 by Landon Mathis MD) Difficulty chewing Muscle weakness Acute low back pain Migraine, intractable Low back pain radiating to right leg Lumbar spine x-ray normal on 09/10/2023. Right hip pain X-ray normal 09/10/2023. Hyperlipidemia Abnormal menstrual cycle Anemia RUQ pain Mild intermittent asthma in adult without complication Seasonal allergic rhinitis Obesity (BMI 30.0-34.9) BMI 30.0-30.9,adult Iron deficiency Hypersomnia Contact dermatitis Pharyngitis Obstructive airway disease (~2021) PFT on 03/30/2022 reveals mild obstructive airway disease with FEV1 of 84% with no significant improvement with bronchodilator. Chest x-ray 05/31/22. 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 Acute non-recurrent maxillary sinusitis Acute bronchitis (~03/07/21) Exposure to Streptococcal pharyngitis Overweight (BMI 25.0-29.9) and not yet delivered Anxiety and depression False labor Venomous spider bite (06/23/20) right posterior thigh with cellulitis Hematuria Left low back pain Migraine without aura and without status migrainosus, not intractable UTI (urinary tract infection) Hypothyroid Surgical History Surgical History H/O dilation and curettage Family History Family History Sibling Nader syndrome Father Blood disorder Mother Asthma Hypothyroidism Social History Social History Smoking status: Never smoker Alcohol intake: never Substance use: never Do You Feel Safe in your Home?: Yes Lack of Transportation: No Lack of Food: Never True Current Housing: I Have Housing Concerned About Future Housing: No Difficulty Paying Gas/Electric Bills: No Difficulty Paying for Meds: No Currently Unemployed: No Education: Trade/Vocational Certificate Difficulty w/ Childcare or Family Care: No Living arrangements: with family Spiritual care concerns: No Anes - Eval Final PreProcedure Day of Procedure 06/26/24 11:27 Patient weight: obese Heart: regular rate and rhythm Lungs: clear to auscultation Airway: Mallampati scale class III Neurological: alert and oriented Last oral intake: >/= 8 hours ASA classification: II Emergent: no Anesthetic plan: proceed Anesthesia type and monitoring: general ETT and standard monitoring Results Review: All pre-operative results and documents have been reviewed as part of the pre-operative evaluation. Informed Consent: The patient's anesthetic plan and its attendant risks and benefits were discussed with the patient/family/POA. Questions were solicited and answers provided to the satisfaction of the patient/family/POA.
[2024-06-26] MEDS: LACTATED RINGERS 1,000 ML 30 ML IV CONT ×2 (11:30→14:01)
[2024-06-26] MEDS: KETOROLAC 15 MG/ML VIAL (*BKC) IV PUSH (11:30)
[2024-06-26] MEDS: ACETAMINOPHEN 500 MG TABLET 1000 MG PO ×3 (11:30→22:54)
[2024-06-26 12:09] LABS: BEDSIDEPREGUCG Negative (Negative)
[2024-06-26] MEDS: SCOPOLAMINE 1 MG PATCH 1 PATCH TRANSDERM (12:14)
--- NOTE | 2024-06-26 12:14 | WPDHPUPDATE1 ---
History and Physical Update Update Date/Time: 06/26/24 12:14 History and Physical has been reviewed, including an updated exam of the patient. There are NO changes in the patient's condition. Risks, benefits, and alternatives have been discussed and questions answered. Patient agrees to proceed with procedure.
[2024-06-26] MEDS: ceFAZolin 2 GM/D5W 50 ML 2 GM/50 ML BAG IVPB (12:23)
[2024-06-26] MEDS: ceFAZolin SODIUM 1 GM VIAL (13:01)
--- NOTE | 2024-06-26 13:45 | P.OP_ITS ---
Procedure Note - Detailed Date of Procedure 06/26/24 Pre-op Diagnosis Menorrhagia Post-op Diagnosis Same Procedure Performed Total laparoscopic hysterectomy with bilateral salpingectomy. Surgeon Marvin Montez MD Anesthesia General Indications Menorrhagia Findings Normal appearing uterus, ovaries, and fallopian tubes. Description of Procedure This patient was taken to the operating room. She was prepped and draped in the dorsal lithotomy position after induction of general anesthesia. The uterine manipulator and Harley cup were placed. This was done with a speculum and tenaculum. The speculum was placed. The cervix was grasped with a tenaculum. The stay sutures were placed at 3 and 9:00 a.m.. The stay sutures of 0 Vicryl were brought through the appropriately sized Harley cup. The tip of the KIM manipulator was placed in the intrauterine cavity. The cup was slid into place around the cervix and into the fornices. It was locked into place. The sutures were then wrapped around the handle and tied under tension. A 5 mm skin incision was made in the left upper quadrant the abdomen. A 5 mm trocar was inserted into the intrauterine cavity under direct visualization of the scope. Pneumoperitoneum was achieved. A left lower quadrant 11 mm incision was made with scalpel. An 11 mm trocar was inserted into the anterior abdominal cavity under direct visualization the scope. A 5 mm infraumbilical incision was made with a scalpel and a 5 mm trocar was inserted the intra-abdominal cavity under direct visualization of the scope. Bilateral ureteral lysis was performed. This was done from the pelvic brim down to the uterine artery. This was done with careful dissection using sharp and blunt dissection. The fallopian tubes were removed bilaterally. The mesosalpinx around the fallopian tubes were cauterized transected with LigaSure cautery. This was done in a bilateral fashion from the ovary to the uterine cornua. The fallopian tube was transected at the uterine cornu and amputated bilaterally. The tube was taken out the left lower quadrant trocar site. In a stepwise fashion along the lateral aspects of the uterus the round ligament and broad ligaments were cauterized transected down to the level of the uterine arteries. A bladder flap was created in the bladder was moved distally to the end of the cervix and over the Harley cup. The bilateral uterine arteries were c auterized and transected. Colpotomy was then performed. In a circumferential fashion the vagina was transected using unipolar cautery. The incision was made down on the Harley cup. when the colpotomy was completed, the uterus and cervix were taken out through the vagina. A pneumo occluder was placed in the vagina. The vaginal cuff was closed with a 0 V lock suture in a running fashion. The pelvis was irrigated with copious amounts antibiotic irrigation. The ureters were again examined and found to be intact and flowing freely under the uterine arteries into the bladder. The bladder was intact. It was examined directly. Cystoscopy was performed after administration of methylene blue. The cystoscope was inserted. Bladder was distended with fluid. The ureteric meatus was observed bilaterally. Blue fluid was seen to egress bilaterally. The bladder was drained and the cystoscope was withdrawn. The vagina was irrigated with Betadine solution after removal of the Pneumo occluder. The patient was taken to recovery room. She was stable condition. Sponge lap and needle counts were correct x2. Drains Yes Packing No Pathology Yes Complications No immediate complications Condition Stable Disposition Floor
[2024-06-26] MEDS: fentaNYL CITRATE INJ (*CRX) 100 MCG/2 ML VIAL 25 MCG IV PUSH ×8 (14:19→15:09)
[2024-06-26] MEDS: ONDANSETRON INJ 4 MG/2 ML VIAL IV PUSH (14:59)
--- NOTE | 2024-06-26 15:27 | ADMGEN ---
1523-This patient, Juan Kaur, was admitted to OB 2nd Floor Room 277-00. Patient/family oriented to hospital policies and general routines including ID bracelet, bed and alarms, visiting hours, pain management, procedures, bathroom and other care routines, personal items, smoking policy, room service/diet, and visiting hours. Information on how to activate the Rapid Response Team has been discussed. Patient/Family are encouraged to report perceived risks to care and to ask questions if they do not understand what they are told or what they should do.
[2024-06-26] MEDS: oxyCODONE HCL (*CRX) 5 MG TAB IR 10 MG PO (16:18)
[2024-06-26] MEDS: DEXTROSE 5%/0.45% SOD CHL 1,000 ML 125 ML IV CONT (16:18)
[2024-06-26] MEDS: DOCUSATE SODIUM 100 MG CAPSULE PO (18:01)
[2024-06-26] MEDS: KETOROLAC 30 MG/ML VIAL (*BKC) IV PUSH ×2 (18:02→22:53)
[2024-06-26] MEDS: SIMETHICONE 80 MG TAB.CHEW PO (18:02)
[2024-06-26] MEDS: diphenhydrAMINE HCl CAP 25 MG CAPSULE PO (19:43)
[2024-06-27 05:00] VITALS: BP 111/68; PULSE 68; RESP 18; TEMP 36.6
[2024-06-27] MEDS: ACETAMINOPHEN 500 MG TABLET 1000 MG PO (05:00)
[2024-06-27] MEDS: KETOROLAC 30 MG/ML VIAL (*BKC) IV PUSH (05:00)
[2024-06-27] MEDS: DOCUSATE SODIUM 100 MG CAPSULE PO (07:30)
[2024-06-27] MEDS: buPROPion HCL XL (24 HR) 150 MG TABCR PO (07:30)
[2024-06-27] MEDS: SIMETHICONE 80 MG TAB.CHEW PO (07:30)
[2024-06-27] MEDS: LEVOTHYROXINE SODIUM 150 MCG TABLET PO (07:30)
[2024-06-27 08:24] VITALS: BP 109/64; PULSE 48; RESP 14; TEMP 37; O2SAT 100
--- NOTE | 2024-06-27 10:32 | P.PNOB_ITS ---
FABRICATION SUPERVISOR - A/P Postoperative Procedures: Procedures Operation Date: 06/26/24 12:00 Actual Procedure Side Surgeon p Robotic Assisted Hysterectomy with Bilateral Salpingectomy Bilateral Marvin Montez MD Postoperative day: 1 Postoperative status: doing well Postoperative plan: see orders Time Spent With Patient Time: Total time spent is greater than 50% in coordination of care (as documented) at patient's floor/unit and/or counseling patient: Time with patient: less than 15 minutes FABRICATION SUPERVISOR- PN:Subj Post-Op Subjective Date/time seen: 06/27/24 10:32 Subjective: patient reports feeling better, patient has no complaints and pain is well controlled Exam Const: General: healthy appearing, comfortable and no acute distress Resp: Auscultation: clear to auscultation bilaterally, no rales, no rhonchi and no wheezes Cardio: Rate: regular rate Heart sounds: no click, no murmurs and no rubs GI: Inspection: non-distended Auscultation: normal bowel sounds Extrem: General: normal to inspection, no pedal edema and no calf tenderness FABRICATION SUPERVISOR - PN: Obj Data Vital Signs Vital Signs: Vital Signs - 24 hr 06/26/24 11:30 06/26/24 14:01 06/26/24 14:15 Temperature 99 F 98.8 F Pulse Rate 96 107 H 88 Respiratory Rate 14 12 14 Blood Pressure 136/94 H 121/79 135/71 Pulse Oximetry 100 98 100 Oxygen Delivery Room Air Simple Face Mask Simple Face Mask Oxygen Flow Rate 6 6 06/26/24 14:30 06/26/24 14:37 06/26/24 14:45 Temperature Pulse Rate 77 86 Respiratory Rate 12 12 Blood Pressure 116/69 121/76 Pulse Oximetry 100 99 Oxygen Delivery Simple Face Mask Room Air Room Air Oxygen Flow Rate 6 06/26/24 15:00 06/26/24 15:15 06/26/24 15:30 Temperature 98.6 F 97.2 F L Pulse Rate 95 97 64 Respiratory Rate 16 16 18 Blood Pressure 110/70 114/75 117/69 Pulse Oximetry 96 95 100 Oxygen Delivery Room Air Room Air Oxygen Flow Rate 06/26/24 15:30 06/26/24 19:40 06/26/24 19:40 Temperature 98.1 F Pulse Rate 976 H 82 Respiratory Rate 18 18 Blood Pressure 121/77 Pulse Oximetry 100 100 Oxygen Delivery Room Air Room Air Oxygen Flow Rate 06/26/24 23:00 06/26/24 23:00 06/27/24 05:00 Temperature 97.7 F 97.9 F Pulse Rate 61 68 Respiratory Rate 16 18 Blood Pressure 103/63 111/68 Pulse Oximetry 100 Oxygen Delivery Room Air Oxygen Flow Rate 06/27/24 05:00 06/27/24 07:30 06/27/24 08:24 Temperature 98.6 F Pulse Rate 48 L Respiratory Rate 14 Blood Pressure 109/64 Pulse Oximetry 100 Oxygen Delivery Room Air Room Air Oxygen Flow Rate Intake/Output Intake/Output: Intake & Output 06/24/24 06/25/24 06/26/24 06/27/24 23:59 23:59 23:59 23:59 Intake Total 1520.8 Output Total 1800 Balance -279.2 Meds/Results Medications: Active Medications Generic Name Dose Route Start Last Admin Trade Name Freq PRN Reason Stop Dose Admin Acetaminophen 1,000 mg 06/26/24 18:00 06/27/24 05:00 Acetaminophen 500 Mg Tablet PO 1,000 mg Q6HR SELENE Administration Bupropion HCl 150 mg 06/27/24 09:00 06/27/24 07:30 Bupropion Hcl Xl (24 Hr) 150 Mg Tabcr PO 150 mg QAM SELENE Administration Docusate Sodium 100 mg 06/26/24 17:00 06/27/24 07:30 Docusate Sodium 100 Mg Capsule PO 100 mg BID SELENE Administration Fluticasone Propionate 1 puff 06/26/24 15:16 06/26/24 15:30 Fluticasone Prop 110 Mcg Inhaler 12 Gm (*Sp) INHALATION Not Given Q12H [facility] Ibuprofen 600 mg 06/27/24 12:00 Ibuprofen 600 Mg Tablet PO Q6HR SELENE Levothyroxine Sodium 150 mcg 06/27/24 06:30 06/27/24 07:30 Levothyroxine Sodium 150 Mcg Tablet PO 150 mcg DAILY@0630 SELENE Administration Loratadine 10 mg 06/26/24 15:35 Loratadine 10 Mg Tablet PO DAILY PRN allergy symptoms Miscellaneous Information 1 each 06/26/24 00:01 Nurtec Odt Nonformulary. Can Patient Bring From Home Or Hold Till Discharge? XX 07/26/24 00:00 CLARIFY SELENE Naloxone HCl 0.1 mg 06/26/24 15:16 Naloxone Hcl 0.4 Mg/Ml Vial IV PUSH Q2M PRN Respiratory rate less than 10 Non-Formulary Medication 75 mg 06/26/24 15:16 Rimegepant [Nurtec Odt] PO ONCE PRN migraine headache Ondansetron HCl 4 mg 06/26/24 15:16 Ondansetron Inj 4 Mg/2 Ml Vial IV PUSH Q6H PRN Nausea And Vomiting Oxycodone HCl 5 mg 06/26/24 15:16 Oxycodone Hcl (*Crx) 5 Mg Tab Ir PO Q4H PRN Pain Rated 4-6 Oxycodone HCl 10 mg 06/26/24 15:16 06/26/24 16:18 Oxycodone Hcl (*Crx) 5 Mg Tab Ir PO 10 mg Q6H PRN Administration Pain Rated 7-10 Simethicone 80 mg 06/26/24 17:00 06/27/24 07:30 Simethicone 80 Mg Tab.Chew PO 80 mg TIDWM SELENE Administration Labs Labs: Laboratory Results - last 24 hr 06/26/24 11:30 POC Urine HCG, Qual Negative
== END 2024-06-27 11:20 | disposition home or self-care (01) ==
LOC: ANHSURGERY 12:12 → ANHOB2 15:22
PROVIDERS: Anesthesiology; PCP Nurse Practitioner Family; Visit Provider Obstetrics & Gynecology
PROC: (CPT 58571; principal; 2024-06-26 12:00)
DX: N72 Inflammatory disease of cervix uteri (principal); N88.8 Other specified noninflammatory disorders of cervix uteri; N70.11 Chronic salpingitis; G89.18 Other acute postprocedural pain; E78.5 Hyperlipidemia, unspecified; J45.909 Unspecified asthma, uncomplicated; D64.9 Anemia, unspecified; K21.9 Gastro-esophageal reflux disease without esophagitis; E06.3 Autoimmune thyroiditis; E61.1 Iron deficiency; G47.10 Hypersomnia, unspecified; K58.0 Irritable bowel syndrome with diarrhea; M62.838 Other muscle spasm; F41.8 Other specified anxiety disorders; R31.9 Hematuria, unspecified; L25.9 Unspecified contact dermatitis, unspecified cause; M35.9 Systemic involvement of connective tissue, unspecified; G89.29 Other chronic pain; R10.9 Unspecified abdominal pain; E66.9 Obesity, unspecified; Z68.30 Body mass index [BMI] 30.0-30.9, adult; Z98.890 Other specified postprocedural states; Z79.51 Long term (current) use of inhaled steroids; Z80.1 Family history of malignant neoplasm of trachea, bronchus and lung; Z82.49 Family history of ischemic heart disease and other diseases of the circulatory system
CPT/HCPCS: 58571; 88307; 99199; A9270; J0690; J1100; J1885; J2003; J2250; J2405; J2590; J2704; J3010; J7030; J7120; Q9968

== ENCOUNTER → 2024-12-04 13:02 | Outpatient (CLI) | payer OTHER, SELFPAY ==
--- NOTE | ~2024-12-04 | XR_ITS ---
EXAMINATION: XR foot LT 2V, 12/04/2024 13:20 CDT HISTORY: Multiple joint pain x 1 year. NKI. R/O Rheumatoid Arthritis COMPARISON: No comparisons available. Findings: No acute fracture or malalignment. No significant degenerative changes. Soft tissues unremarkable. Impression: No acute fracture or malalignment. Reviewed, dictated and finalized at location P. Impression: No acute fracture or malalignment.
--- NOTE | ~2024-12-04 | XR_ITS ---
EXAMINATION: XR foot RT 2V, 12/04/2024 13:20 CDT HISTORY: Multiple joint pain x 1 year. NKI. R/O Rheumatoid Arthritis COMPARISON: No comparisons available. Findings: No acute fracture or malalignment. No significant degenerative changes. Soft tissues unremarkable. Impression: No acute fracture or malalignment. Reviewed, dictated and finalized at location P. Impression: No acute fracture or malalignment.
--- NOTE | ~2024-12-04 | XR_ITS ---
EXAMINATION: XR ankle LT 2V, 12/04/2024 13:20 CDT HISTORY: Multiple joint pain x 1 year. NKI. R/O Rheumatoid Arthritis COMPARISON: No comparisons available. Findings: No acute fracture or malalignment. No significant degenerative changes. Soft tissues unremarkable. Impression: No acute fracture or malalignment. Reviewed, dictated and finalized at location P. Impression: No acute fracture or malalignment.
--- NOTE | ~2024-12-04 | XR_ITS ---
EXAMINATION: XR wrist RT 2V, 12/04/2024 13:20 CDT HISTORY: Multiple joint pain x 1year. NKI. R/O Rheumatoid arthritis. COMPARISON: No comparisons available. Findings: No acute fracture or malalignment. No significant degenerative changes. Soft tissues unremarkable. Impression: No acute fracture or malalignment. Reviewed, dictated and finalized at location P. Impression: No acute fracture or malalignment.
--- NOTE | ~2024-12-04 | XR_ITS ---
EXAMINATION: XR hand RT 2V, 12/04/2024 13:20 CDT HISTORY: Multiple joint pain x 1 year. NKI. R/O Rheumatoid Arthritis COMPARISON: No comparisons available. Findings: No acute fracture or malalignment. No significant degenerative changes. Soft tissues unremarkable. Impression: No acute fracture or malalignment. Reviewed, dictated and finalized at location P. Impression: No acute fracture or malalignment.
--- NOTE | ~2024-12-04 | XR_ITS ---
EXAMINATION: XR sacroiliac joints min 3V, 12/04/2024 13:20 CDT HISTORY: Multiple joint pain X 1 year. NKI. R/O Rheumatoid Arthritis COMPARISON: No comparisons available. Findings: No acute fracture or malalignment. Sclerosis of the sacroiliac joints but no erosions, no bridging osteophyte formation Soft tissues unremarkable. Impression: No acute fracture or malalignment. Reviewed, dictated and finalized at location P. Impression: No acute fracture or malalignment.
--- NOTE | ~2024-12-04 | XR_ITS ---
EXAMINATION: XR wrist LT 2V, 12/04/2024 13:20 CDT HISTORY: Multiple joint pain COMPARISON: No comparisons available. Findings: No acute fracture or malalignment. No significant degenerative changes. Soft tissues unremarkable. Impression: No acute fracture or malalignment. Reviewed, dictated and finalized at location P. Impression: No acute fracture or malalignment.
--- NOTE | ~2024-12-04 | XR_ITS ---
EXAMINATION: XR hand LT 2V, 12/04/2024 13:20 CDT HISTORY: Multiple joint pain x 1 year. NKI R/O Rheumatoid Arthritis COMPARISON: No comparisons available. Findings: No acute fracture or malalignment. No significant degenerative changes. Soft tissues unremarkable. Impression: No acute fracture or malalignment. Reviewed, dictated and finalized at location P. Impression: No acute fracture or malalignment.
--- NOTE | ~2024-12-04 | XR_ITS ---
EXAMINATION: XR ankle RT 2V, 12/04/2024 13:20 CDT HISTORY: Multiple joint pain x 1 year. NKI. R/O Rheumatoid Arthritis COMPARISON: No comparisons available. Findings: No acute fracture or malalignment. No significant degenerative changes. Soft tissues unremarkable. Impression: No acute fracture or malalignment. Reviewed, dictated and finalized at location P. Impression: No acute fracture or malalignment.
== END ==
PROVIDERS: PCP Nurse Practitioner Family; Referring Provider Nurse Practitioner Family; Visit Provider Nurse Practitioner Family
DX: M25.50 Pain in unspecified joint (principal)
CPT/HCPCS: 72202; 73100; 73120; 73600; 73620